=== PATIENT | male | born 1945 | race Caucasian/White ===

== ENCOUNTER 2023-06-22 19:05 | Inpatient (IN) ==
--- NOTE | 2023-06-22 19:21 | Emergency Department Note ---
Impression & Plan Sepsis, COPD (chronic obstructive pulmonary disease), Pneumonia, Leukocytosis, Elevated troponin ED Provider Note NAME: DENIZ HO [id number] LOPEZ AGE: 77 SEX: M ARRIVES VIA: Ambulance INFORMANT: Patient ED PROVIDER(S): Franklyn Rey MD CHIEF COMPLAINT: Shortness of breath, referred. PLAN: Disposition: Admit MEDICAL DECISION MAKING: The patient is a 77 gentleman, present inmate at [facility], with a past medical history of COPD, hypertension, hyperlipidemia who presents to the emergency department from his correction facility referred by [facility] for worsening cough, congestion and shortness of breath. EMS arrived and found the patient febrile to 100.4, tachycardic and tachypneic with O2 saturation 84% on room air and he was placed on 6 L nasal cannula and given APAP. On arrival the patient's O2 saturation was able to be weaned to room air and was 91%. The patient denies any discrete chest pain. He denies abdominal pain, nausea, vomiting, or diarrhea. On my evaluation the patient is uncomfortable but no distress, afebrile heart rate in the 100s and blood pressure 90s/60s and vital signs otherwise stable. Temperature is 37.6. O2 saturation 91% on room air with normal respiratory effort. He has wheezes bilateral lung rodriguez with rhonchi of right lower lung rodriguez. EKG without overt acute ischemia. Chest x-ray with right lower airspace opacities per my personal preliminary review/interpretation. Further characterized on CT imaging. WBC 37 K with neutrophil predominance and left shift. H/H and platelets within normal limits. VBG with pH of 7.46 with PaCO2 of 34 in the setting of the patient's tachypnea. Chemistry without metabolic acidosis. Lactic acid 1.6, within normal limits. Bili 1.6, nonspecific with LFTs otherwise unremarkable. High-sensitivity troponin initially 34, nonspecific with delta high-sensitivity troponin 27. BNP is not elevated. Procalcitonin is elevated at 6.4. Respiratory viral panel/[employer] was negative. CT of the chest was performed and was negative for PE. Note is made of emphysematous change throughout both lungs with a 9 cm area of infiltrate in the posterior aspect of the right lower lobe consistent with pneumonia. Patient was treated empirically with IV ceftriaxone and azithromycin on arrival but coverage broadened with Zosyn following leukocytosis and CT findings. MRSA swab performed and is pending. Patient was additionally treated with IV steroids and 2 L of normal saline thus achieving 30 cc/kg in the setting of sepsis. Blood pressure improved and stable. Patient does agree with plan for admission for further management. Case was discussed with EMILY Milton hospitalist, who will evaluate the patient for admission. Triage Nursing notes reviewed and agree them. Prior/external medical records reviewed Vital Signs: reviewed Differential diagnosis: Reactive airway disease, pneumonia, pneumothorax, COPD, CHF, infections, cardiac ischemia, pulmonary embolism, musculoskeletal, gastrointestinal, as well as other pathologies. ER treatment provided: See below. Diagnostics interpreted by me: ECG: Normal sinus rhythm, 100 bpm, PVC versus artifact. No overt ST elevation or depression, QTc 417 QRS 84. Cardiac Monitoring: An order for continuous cardiac monitoring was placed and demonstrated Normal sinus rhythm, 100 bpm, PVC versus artifact Laboratory studies: See below Imaging studies: See below Consultation(s): EMILY Milton hospitalist HPI: The patient is a 77 gentleman, present inmate at [facility], with a past medical history of COPD, hypertension, hyperlipidemia who presents to the emergency department from his correction facility referred by [facility] for worsening cough, congestion and shortness of breath. EMS arrived and found the patient febrile to 100.4, tachycardic and tachypneic with O2 saturation 84% on room air and he was placed on 6 L nasal cannula and given APAP. On arrival the patient's O2 saturation was able to be weaned to room air and was 91%. The patient denies any discrete chest pain. He denies abdominal pain, nausea, vomiting, or diarrhea. ROS: See above HPI for pertinent positives & negatives. A total of 10 systems reviewed and were otherwise negative. VITALS:See Below PHYSICAL EXAMINATION: GENERAL: Awake, alert, uncomfortable-appearing, in no distress HENT: Normocephalic, atraumatic. Oropharynx with dry mucous membranes and otherwise unremarkable. EYES: Normal conjunctiva. Sclera non-icteric. NECK: Supple. No nuchal rigidity. FROM. No JVD. RESPIRATORY: Wheezes bilateral lung rodriguez with rhonchi of right lower lung rodriguez. Normal respiratory effort. CARDIAC: Tachycardic. Rate, normal rhythm. Extremities warm and well perfused. Pulses equal. ABDOMEN: Soft, non-distended. No tenderness to palpation. No rebound or guarding. No masses. RECTAL: Deferred. MUSCULOSKELETAL: Chest examination reveals no tenderness. The back is symmetrical on inspection without obvious abnormality. There is no CVA tenderness to palpation. No joint edema. LOWER EXTREMITIES: Calves are equal size bilaterally and non-tender. No edema. No discoloration. NEURO: Normal sensorium. No sensory or motor deficits noted. SKIN: No rash or jaundice noted. Skin is warm and mottled with capillary refill approximately 3 seconds. ED COURSE: Critical Care: I have personally spent greater than 45 minutes of critical care time in the direct management of this patient. This includes bedside care, interpretation of diagnostic studies, and testing, discussion with consultants, patient, and family members, and other required patient management activities. This 45 minutes is in excess of all separately billable procedures. Franklyn Rey MD Past Med/Surg History Medical History Aortic aneurysm UNSPECIFIED PER MEDICAL RECORD GERD (gastroesophageal reflux disease) SOB (shortness of breath) on exertion Chronic obstructive pulmonary disease Hyperlipidemia Hypertension Surgical History History of cataract surgery RT H/O aortic aneurysm repair Social History Smoking Status: Former smoker Tobacco Type: Cigarettes Cigarettes Per Day: SMOKED 1 PPD X 60 YRS; Hx Alcohol Use: No Hx Substance Use: No Preferred Language: Mohawk Communication Ability: Effective Senior Information Developer Required: No Beliefs That Will Affect Care: None Current Living Situation: Other Current Living Situation Comment: correction Feels Safe at Home: Yes Assistive Devices: None Allergies Allergies Allergy/AdvReac Type Severity Reaction Status Date / Time No Known Allergies Allergy Verified 06/22/23 21:25 Home Meds Home Medications Medication Instructions Recorded Confirmed lisinopril 40 mg tablet 40 mg PO QAM 04/08/19 06/22/23 lovastatin 20 mg tablet 20 mg PO PM 04/08/19 06/22/23 montelukast 10 mg tablet 10 mg PO QAM 04/08/19 06/22/23 pantoprazole 40 mg tablet,delayed 40 mg PO QAM 04/08/19 06/22/23 release theophylline 300 mg 300 mg PO TID 04/08/19 06/22/23 tablet,extended release,12 hr albuterol sulfate 90 mcg/actuation 2 puff inhalation QID PRN 06/22/23 06/22/23 aerosol inhaler Shortness Of Breath fluticasone fur. 100 mcg-umeclid 1 inh inhalation DAILY 06/22/23 06/22/23 62.5 mcg-vilant 25 mcg inhalat.powder (Trelegy Ellipta) hydrochlorothiazide 12.5 mg tablet 12.5 mg PO DAILY 06/22/23 06/22/23 vit A 300 mcg-C 200 mg-E 27 1 tab PO DAILY 06/22/23 06/22/23 mg-lutein 2 mg and minerals tablet (Ocuvite with Lutein) Results & Data (ED) Vital Signs Vital Signs - 24 hr 06/22/23 18:44 06/22/23 18:44 06/22/23 19:15 Temperature 37.6 C H Temperature Source Oral Pulse Rate 102 H 100 H Pulse Rate from SpO2 Sensor Respiratory Rate 18 Respiratory Effort / Characteristics Non-Labored Respiratory Depth Normal Blood Pressure 97/68 L Blood Pressure Mean 77 Pulse Oximetry 91 Oxygen Delivery Method Room Air Room Air Sepsis Recent Fever Within 48 Hours No Sepsis New/Unexplained Change in Mental Status No Sepsis Action Taken by Nursing Physician Notified 06/22/23 19:15 06/22/23 19:16 06/22/23 19:30 Temperature Temperature Source Pulse Rate 101 H 100 H Pulse Rate from SpO2 Sensor 101 H 100 H Respiratory Rate 30 H 32 H Respiratory Effort / Characteristics Respiratory Depth Blood Pressure Blood Pressure Mean Pulse Oximetry 92 91 Oxygen Delivery Method Room Air Sepsis Recent Fever Within 48 Hours Sepsis New/Unexplained Change in Mental Status Sepsis Action Taken by Nursing 06/22/23 20:00 06/22/23 20:31 06/22/23 21:00 Temperature Temperature Source Pulse Rate 94 H 87 85 Pulse Rate from SpO2 Sensor 94 H 86 82 Respiratory Rate 28 H 28 H 25 H Respiratory Effort / Characteristics Respiratory Depth Blood Pressure 95/62 L Blood Pressure Mean 73 Pulse Oximetry 91 92 100 Oxygen Delivery Method Sepsis Recent Fever Within 48 Hours Sepsis New/Unexplained Change in Mental Status Sepsis Action Taken by Nursing 06/22/23 21:30 06/22/23 21:48 06/22/23 22:00 Temperature Temperature Source Pulse Rate 88 85 82 Pulse Rate from SpO2 Sensor 89 86 83 Respiratory Rate 27 H 25 H 27 H Respiratory Effort / Characteristics Respiratory Depth Blood Pressure 114/75 Blood Pressure Mean 88 Pulse Oximetry 96 95 94 Oxygen Delivery Method Sepsis Recent Fever Within 48 Hours Sepsis New/Unexplained Change in Mental Status Sepsis Action Taken by Nursing Laboratory Data Attestation: I reviewed the patient's lab results. 06/22/23 19:26 06/22/23 19:26 Lab Results 06/22/23 06/22/23 06/22/23 Range/Units 19:20 19:26 20:16 WBC 37.17 H* (4.8-10.8) K/ul RBC 4.48 L (4.70-6.10) M/uL Hgb 14.9 (14.0-18.0) g/dl Hct 43.4 (42.0-52.0) % MCV 96.9 (80.0-100.0) fL MCH 33.3 (25.0-34.0) pg MCHC 34.3 (32.0-36.0) g/dL RDW Std Deviation 44.9 (36.4-46.3) fL RDW Coeff of Yoandy 12.5 (11.5-14.5) % Plt Count 199 (130-400) K/uL MPV 10.7 (9.4-12.4) fL Immature Gran % (Auto) 1.6 % Neut % (Auto) 91.3 % Lymph % (Auto) 3.2 % [place] % (Auto) 3.7 % Eos % (Auto) 0.0 % Baso % (Auto) 0.2 % Neut # (Auto) 33.93 H (1.40-6.50) K/uL Lymph # (Auto) 1.19 L (1.20-3.40) K/uL [place] # (Auto) 1.38 H (0.11-0.59) K/uL Eos # (Auto) 0.00 (0.00-0.50) K/uL Baso # (Auto) 0.09 (0.00-0.20) K/uL Immature Gran # (Auto) 0.58 H (0.01-0.20) K/uL PT 14.2 H (9.0-12.0) Seconds INR 1.3 H (0.9-1.1) VBG pH 7.46 H (7.36-7.41) VBG pCO2 34 L (38-50) mmHg VBG pO2 53 mmHg VBG HCO3 24 mmol/L VBG O2 Saturation 87.4 % VBG Base Excess 0.8 mEq/L Sodium 133 L (136-145) mmol/L Potassium 4.2 (3.5-5.1) mmol/L Chloride 101 (98-107) mmol/L Carbon Dioxide 22 (21-32) mmol/L Anion Gap 10 (3-11) BUN 21 (6-23) mg/dl Creatinine 1.20 (0.6-1.4) mg/dl Est Cr Clr Drug Dosing 43.8 ml/min Est GFR ( Amer) 66.3 ml/min Est GFR (Non-Af Amer) 57.2 ml/min BUN/Creatinine Ratio 17.5 (10-20) Glucose 102 H (70-99(Fasting)) mg/dl Lactate 1.6 (0.4-2.0) mmol/L Calcium 9.0 (8.6-10.3) mg/dl Phosphorus 2.0 L (2.5-4.9) mg/dl Magnesium 1.8 (1.7-2.4) mg/dl Total Bilirubin 1.6 H (0.2-1.0) mg/dl AST 12 L (13-39) U/L ALT 5 L (7-52) U/L Alkaline Phosphatase 71 (34-104) U/L Troponin I High Sens 34.3 H (0-20) pg/ml B-Natriuretic Peptide 87 (0-100) pg/ml Total Protein 7.6 (6.0-8.3) gm/dl Albumin 4.0 (3.4-5.0) gm/dl Globulin 3.6 (2.5-4.0) gm/dl Albumin/Globulin Ratio 1.1 (0.9-2) Lipase < 3 L (11-82) U/L Procalcitonin 6.46 H (0-0.5) ng/ml 06/22/23 Range/Units 21:36 WBC (4.8-10.8) K/ul RBC (4.70-6.10) M/uL Hgb (14.0-18.0) g/dl Hct (42.0-52.0) % MCV (80.0-100.0) fL MCH (25.0-34.0) pg MCHC (32.0-36.0) g/dL RDW Std Deviation (36.4-46.3) fL RDW Coeff of Yoandy (11.5-14.5) % Plt Count (130-400) K/uL MPV (9.4-12.4) fL Immature Gran % (Auto) % Neut % (Auto) % Lymph % (Auto) % [place] % (Auto) % Eos % (Auto) % Baso % (Auto) % Neut # (Auto) (1.40-6.50) K/uL Lymph # (Auto) (1.20-3.40) K/uL [place] # (Auto) (0.11-0.59) K/uL Eos # (Auto) (0.00-0.50) K/uL Baso # (Auto) (0.00-0.20) K/uL Immature Gran # (Auto) (0.01-0.20) K/uL PT (9.0-12.0) Seconds INR (0.9-1.1) VBG pH (7.36-7.41) VBG pCO2 (38-50) mmHg VBG pO2 mmHg VBG HCO3 mmol/L VBG O2 Saturation % VBG Base Excess mEq/L Sodium (136-145) mmol/L Potassium (3.5-5.1) mmol/L Chloride (98-107) mmol/L Carbon Dioxide (21-32) mmol/L Anion Gap (3-11) BUN (6-23) mg/dl Creatinine (0.6-1.4) mg/dl Est Cr Clr Drug Dosing ml/min Est GFR ( Amer) ml/min Est GFR (Non-Af Amer) ml/min BUN/Creatinine Ratio (10-20) Glucose (70-99(Fasting)) mg/dl Lactate (0.4-2.0) mmol/L Calcium (8.6-10.3) mg/dl Phosphorus (2.5-4.9) mg/dl Magnesium (1.7-2.4) mg/dl Total Bilirubin (0.2-1.0) mg/dl AST (13-39) U/L ALT (7-52) U/L Alkaline Phosphatase (34-104) U/L Troponin I High Sens 27.9 H (0-20) pg/ml B-Natriuretic Peptide (0-100) pg/ml Total Protein (6.0-8.3) gm/dl Albumin (3.4-5.0) gm/dl Globulin (2.5-4.0) gm/dl Albumin/Globulin Ratio (0.9-2) Lipase (11-82) U/L Procalcitonin (0-0.5) ng/ml Administered Medications Albuterol (Albut/Ipratrop 3mg/0.5mg Neb 3 Ml Vial) 3 ml NEB Q4R SPRING; Protocol Stop: 07/22/23 22:59 Last Admin: 06/23/23 03:04 Dose: 3 ml Documented By: Admin: 06/22/23 23:17 Dose: 3 ml Documented By: CHANI Enoxaparin Sodium (Enoxaparin Inj 40 Mg/0.4 Ml Syr) 40 mg SQ Q24H SPRING Stop: 07/22/23 22:59 Last Admin: 06/23/23 00:25 Dose: 40 mg Documented By: LAST Discontinued Medications Albuterol (Albut/Ipratrop 3mg/0.5mg Neb 3 Ml Vial) 3 ml NEB NOW STA; Protocol Stop: 06/22/23 20:08 Last Admin: 06/22/23 20:34 Dose: 3 ml Documented By: KAZ Guaifenesin (Guaifenesin 600 Mg Tabcr) 1,200 mg PO NOW STA Stop: 06/22/23 20:08 Last Admin: 06/22/23 20:34 Dose: 1,200 mg Documented By: KAZ Sodium Chloride (Nss) 1,000 mls @ 999 mls/hr IV .Q1H1M SPRING Stop: 06/22/23 22:15 Last Infusion: 06/22/23 23:47 Dose: Infused Documented By: Admin: 06/22/23 21:27 Dose: 999 mls/hr Documented By: Infusion: 06/22/23 21:27 Dose: Infused Documented By: Admin: 06/22/23 20:34 Dose: 999 mls/hr Documented By: KAZ Ceftriaxone Sodium (Rocephin) 2,000 mg in 50 mls @ 100 mls/hr IV NOW STA Stop: 06/22/23 20:36 Last Infusion: 06/22/23 23:48 Dose: Infused Documented By: Admin: 06/22/23 20:34 Dose: 100 mls/hr Documented By: KAZ Azithromycin 500 mg/ Dextrose 255 mls @ 127.5 mls/hr IV NOW STA Stop: 06/22/23 22:06 Last Infusion: 06/22/23 23:48 Dose: Infused Documented By: Admin: 06/22/23 21:26 Dose: 127.5 mls/hr Documented By: KAZ Piperacillin Sod/Tazobactam (Sod 4.5 gm/ Dextrose) 100 mls @ 200 mls/hr IV NOW ONE; Protocol Stop: 06/22/23 21:36 Last Admin: 06/22/23 23:47 Dose: Not Given Documented By: LAST Sodium Phosphate 12 mmol/ (Sodium Chloride) 254 mls @ 88 mls/hr IV ONE ONE Stop: 06/23/23 02:08 Last Infusion: 06/23/23 03:26 Dose: Infused Documented By: Admin: 06/23/23 00:25 Dose: 88 mls/hr Documented By: LAST Piperacillin Sod/Tazobactam (Sod 4.5 gm/ Dextrose) 100 mls @ 200 mls/hr IV NOW ONE; Protocol Stop: 06/22/23 23:44 Last Infusion: 06/23/23 00:30 Dose: Infused Documented By: Admin: 06/22/23 23:30 Dose: 200 mls/hr Documented By: LAST Ioversol (Optiray 320 500ml) 114 ml IV ONCE ONE Stop: 06/22/23 20:24 Last Admin: 06/22/23 20:23 Dose: 114 ml Documented By: GORAN Methylprednisolone (Methylprednisolone 125 Mg/2 Ml Vial) 125 mg IV NOW STA Stop: 06/22/23 20:08 Last Admin: 06/22/23 20:34 Dose: 125 mg Documented By: KAZ Imaging Data Radiologist's Impression: Chest CTA 06/22/23 20:07 Exam(s): CTA CHEST IV Amt: 114 ml optiray 320 EXAM: CT Angiography Chest With Intravenous Contrast CLINICAL HISTORY: Reason for exam: hypoxia, sob, copd, r/o PE. TECHNIQUE: Axial computed tomographic angiography images of the chest with intravenous contrast. CTDI is 16.62 mGy and DLP is 363.81 mGy-cm. Automated exposure control was utilized for the study. A dose lowering technique was utilized adhering to the principles of ALARA. MIP reconstructed images were created and reviewed. COMPARISON: No relevant prior studies available. FINDINGS: Pulmonary arteries: The pulmonary arterial tree is well opacified with contrast. No pulmonary embolism is identified. Aorta: The thoracic aorta is mildly calcified but nondilated. There is no aneurysm or dissection. Lungs: There are mild to moderate emphysematous changes throughout both lungs. There is an approximately 9 cm areas of infiltrate in the posterior aspect of the right lower lobe consistent with pneumonia. Pleural based 1 cm nodular density in the posterior right upper lobe. Possible infiltrate or atelectasis. Recommend follow-up in 2-3 months to document resolution. No mass. Pleural space: Unremarkable. No significant effusion. No pneumothorax. Heart: Unremarkable. No cardiomegaly. No significant pericardial effusion. No evidence of RV dysfunction. Bones/joints: Mild degenerative changes throughout the spine. No acute fracture or destructive bone lesion is seen. No dislocation. Soft tissues: Unremarkable. Lymph nodes: Unremarkable. No enlarged lymph nodes. IMPRESSION: 1. There are mild to moderate emphysematous changes throughout both lungs. There is an approximately 9 cm area of infiltrate in the posterior aspect of the right lower lobe consistent with pneumonia. 2. Pleural based 1 cm nodular density in the posterior right upper lobe. Possible infiltrate or atelectasis. Recommend follow-up in 2-3 months to document resolution. 3. The thoracic aorta is mildly calcified but nondilated. There is no aneurysm or dissection. 4. The pulmonary arterial tree is well opacified with contrast. No pulmonary embolism is identified. Electronically signed by: Suleman Sanchez MD 06/22/23 20:57 PM Discharge Plan Visit Data Chief Complaint: Shortness of Breath/Dyspnea Stated Complaint: SHORTNESS OF BREATH ED Provider: Franklyn Rey Discharge Problem: Sepsis, COPD (chronic obstructive pulmonary disease), Pneumonia, Leukocytosis, Elevated troponin Patient Disposition: Admitted As Inpatient Discharge Instructions Interventions: ED Discharge Assessment Last Done: 06/22/23 22:45 Discharge Problem: Sepsis Qualifiers: Sepsis type: sepsis due to unspecified organism Severe sepsis acute organ dysfunction type: unspecified Severe sepsis shock status: without septic shock COPD (chronic obstructive pulmonary disease) Qualifiers: COPD type: COPD with acute lower respiratory infection Qualified Code(s): J44.0 - Chronic obstructive pulmonary disease with (acute) lower respiratory infection Pneumonia Qualifiers: Pneumonia type: due to unspecified organism Laterality: right Lung location: l ower lobe of lung Qualified Code(s): J18.9 - Pneumonia, unspecified organism Leukocytosis Qualifiers: Leukocytosis type: bandemia Qualified Code(s): D72.825 - Bandemia
[2023-06-22] MEDS ORDERED: methylPREDNISolone 125 MG/2 ML VIAL IV STA (20:07)
[2023-06-22] MEDS ORDERED: guaiFENesin 600 MG TABCR PO STA (20:07)
[2023-06-22] MEDS ORDERED: ALBUT/IPRATROP 3MG/0.5MG NEB 3 ML VIAL NEB STA (20:07)
[2023-06-22] MEDS ORDERED: AZITHROMYCIN 500 MG in DEXTROSE 5% 250 ML IV STA (20:07)
[2023-06-22] MEDS ORDERED: cefTRIAXone SODIUM 2,000 MG/50 ML BAG IV STA (20:07)
[2023-06-22 20:08] LABS: Anion Gap 10 (3-11); BUN Creatinine Ratio 17.5 (10-20); Blood Urea Nitrogen 21 mg/dl (6-23); Carbon Dioxide 22 mmol/L (21-32); Chloride 101 mmol/L (98-107); Creatinine Clr Calc Pharmacy 43.8 ml/min; Est GFR (African American) 66.3 ml/min; Est GFR (Non-African American) 57.2 ml/min; Glucose 102 mg/dl (70-99(Fasting)); Potassium 4.2 mmol/L (3.5-5.1); Sodium 133 mmol/L (136-145)
[2023-06-22 20:14] LABS: Troponin I High Sensitivity 34.3 pg/ml (0-20)
[2023-06-22 20:19] LABS: Basophils # (auto) 0.09 K/uL (0.00-0.20); Basophils % (auto) 0.2 %; Hematocrit (blood only) 43.4 % (42.0-52.0); Hemoglobin 14.9 g/dl (14.0-18.0); INR 1.3 (0.9-1.1); Immature Granulocytes # (auto) 0.58 K/uL (0.01-0.20); Immature Granulocytes % (auto) 1.6 %; Lymphocytes # (auto) 1.19 K/uL (1.20-3.40); Lymphocytes % (auto) 3.2 %; Mean Corpuscular Hemoglobin 33.3 pg (25.0-34.0); Mean Corpuscular Hgb Conc 34.3 g/dL (32.0-36.0); Mean Corpuscular Volume 96.9 fL (80.0-100.0); Mean Platelet Volume 10.7 fL (9.4-12.4); Monocytes # (auto) 1.38 K/uL (0.11-0.59); Monocytes % (auto) 3.7 %; Neutrophils # (auto) 33.93 K/uL (1.40-6.50); Neutrophils % (auto) 91.3 %; Platelet Count 199 K/uL (130-400); Prothrombin Time 14.2 Seconds (9.0-12.0); RDW Coefficient of Variation 12.5 % (11.5-14.5); RDW Standard Deviation 44.9 fL (36.4-46.3); Red Blood Count 4.48 M/uL (4.70-6.10); White Blood Count 37.17 K/ul (4.8-10.8)
[2023-06-22 20:23] LABS: Alanine Aminotransferase 5 U/L (7-52); Albumin Globulin Ratio 1.1 (0.9-2); Alkaline Phosphatase 71 U/L (34-104); Aspartate Aminotransferase 12 U/L (13-39); Bilirubin,Total 1.6 mg/dl (0.2-1.0); Globulin 3.6 gm/dl (2.5-4.0); Lipase < 3 U/L (11-82); Magnesium 1.8 mg/dl (1.7-2.4); Total Protein 7.6 gm/dl (6.0-8.3)
[2023-06-22] MEDS ORDERED: OPTIRAY 320 500ml IV ONE (20:23)
[2023-06-22 20:32] LABS: Base Excess VBG 0.8 mEq/L; HCO3 VBG 24 mmol/L; Oxygen Saturation VBG 87.4 %; PCO2 VBG 34 mmHg (38-50); PO2 VBG 53 mmHg; pH VBG 7.46 (7.36-7.41)
[2023-06-22] MEDS: SODIUM CHLORIDE 0.9% 1,000 ML IV SCH ×2 (20:34→21:27)
--- NOTE | 2023-06-22 20:58 | CT Scan Report ---
Exam(s): CTA CHEST IV Amt: 114 ml optiray 320 EXAM: CT Angiography Chest With Intravenous Contrast CLINICAL HISTORY: Reason for exam: hypoxia, sob, copd, r/o PE. TECHNIQUE: Axial computed tomographic angiography images of the chest with intravenous contrast. CTDI is 16.62 mGy and DLP is 363.81 mGy-cm. Automated exposure control was utilized for the study. A dose lowering technique was utilized adhering to the principles of ALARA. MIP reconstructed images were created and reviewed. COMPARISON: No relevant prior studies available. FINDINGS: Pulmonary arteries: The pulmonary arterial tree is well opacified with contrast. No pulmonary embolism is identified. Aorta: The thoracic aorta is mildly calcified but nondilated. There is no aneurysm or dissection. Lungs: There are mild to moderate emphysematous changes throughout both lungs. There is an approximately 9 cm areas of infiltrate in the posterior aspect of the right lower lobe consistent with pneumonia. Pleural based 1 cm nodular density in the posterior right upper lobe. Possible infiltrate or atelectasis. Recommend follow-up in 2-3 months to document resolution. No mass. Pleural space: Unremarkable. No significant effusion. No pneumothorax. Heart: Unremarkable. No cardiomegaly. No significant pericardial effusion. No evidence of RV dysfunction. Bones/joints: Mild degenerative changes throughout the spine. No acute fracture or destructive bone lesion is seen. No dislocation. Soft tissues: Unremarkable. Lymph nodes: Unremarkable. No enlarged lymph nodes. IMPRESSION: 1. There are mild to moderate emphysematous changes throughout both lungs. There is an approximately 9 cm area of infiltrate in the posterior aspect of the right lower lobe consistent with pneumonia. 2. Pleural based 1 cm nodular density in the posterior right upper lobe. Possible infiltrate or atelectasis. Recommend follow-up in 2-3 months to document resolution. 3. The thoracic aorta is mildly calcified but nondilated. There is no aneurysm or dissection. 4. The pulmonary arterial tree is well opacified with contrast. No pulmonary embolism is identified. Electronically signed by: Suleman Sanchez MD 06/22/23 20:57 PM
[2023-06-22] MEDS ORDERED: PIPERACILLIN/TAZOBACTAM 4.5 GM in DEXTROSE 5% MINI-B 100 ML IV ONE ×2 (21:07→23:15)
--- NOTE | 2023-06-22 22:02 | History & Physical Report ---
Date of Service June 22, 2023 Assessment & Plan (1) Pneumonia: Plan: 77yo male with history of COPD presenting with 2-3 days of worsening shortness of breath and productive cough. Patient with elevated temperature and HR, blood pressure borderline low. Labs are significant for markedly elevated WBC count at 37.17 with neutrophil predominance, elevated neutrophil:lymphocyte ratio and bands, elevated procalcitonin at 6.46. CT as above with RLL infiltrate sugge stive of PNA. Patient has been administered 2L NSS as well as Ceftriaxone and Azithromycin. -Admit to medical with telemetry -Follow cultures -Antibiotic coverage with Zosyn (RLL density, h/o COPD). -Check MRSA nares -Tylenol PRN (2) COPD (chronic obstructive pulmonary disease): Plan: Patient with COPD. Diminished breath sounds with scattered wheezing. -Check theophylline level -Continue Theophylline -Continue Trelegy or formulary equivalent -DuoNeb q 4 hours while awake -Albuterol q 2 hours PRN -Mucinex 1200mg po BID -Flutter valve and incentive spirometry -Solumedrol 40mg IV BID -Phos repletion with 12mmol NaPO4, repeat level in AM -Mildly elevated troponin is now downtrending -EKG changes without report of chest pain. Repeat EKG CT with pleural based 1cm nodular density in the posterior right upper lobe representing possible infiltrate or atelectasis. Patient should have a followup CT scan in 2-3 months to demonstrate resolution (3) Hyperlipidemia: Plan: Chronic. Stable -Continue Lovastatin (4) Hypertension: Plan: Blood pressure borderline low -Hold HCTZ and Lisinopril for now -Continue to monitor - may resume in AM if BP improves (5) GERD (gastroesophageal reflux disease): Plan: Chronic. Stable -Continue Protonix History of Present Illness Chief Complaint: shortness of breath Primary Care Provider: NADINE Briggs Fan Prather is a 77yo incarcerated male with history of COPD presenting with shortness of breath. Patient reports having some mild URI symptoms 3-4 weeks ago which resolved. Over the last 2-3 days he has been having increasing shortness of breath and cough productive for thick, yellow sputum. He denies fever, chills, sweats, chest pain or tightness. No hemoptysis. No abdominal pain, nausea, vomiting or diarrhea. No additional complaints at this time. In the ER patient with elevated temperature of 37.6, tachycardic at 102bpm, blood pressure mildly low (last 97/68) but MAPs maintained over 65. Adequate oxygenation on room air with saturations ranging 88-92%. Patient does not use supplemental O2 at home. ER Course: NSS x 2L Solumedrol 125mg IV Albuterol 3mL neb Ceftriaxone 2gm IV Azithromycin 500mg IV Allergies Allergy/AdvReac Type Severity Reaction Status Date / Time No Known Allergies Allergy Verified 06/22/23 21:25 Home Medications Medication Instructions Recorded Confirmed Type lisinopril 40 mg tablet 40 mg PO QAM 04/08/19 06/22/23 History lovastatin 20 mg tablet 20 mg PO PM 04/08/19 06/22/23 History montelukast 10 mg tablet 10 mg PO QAM 04/08/19 06/22/23 History pantoprazole 40 mg tablet,delayed 40 mg PO QAM 04/08/19 06/22/23 History release theophylline 300 mg 300 mg PO TID 04/08/19 06/22/23 History tablet,extended release,12 hr albuterol sulfate 90 mcg/actuation 2 puff inhalation QID PRN 06/22/23 06/22/23 History aerosol inhaler Shortness Of Breath fluticasone fur. 100 mcg-umeclid 1 inh inhalation DAILY 06/22/23 06/22/23 History 62.5 mcg-vilant 25 mcg inhalat.powder (Trelegy Ellipta) hydrochlorothiazide 12.5 mg tablet 12.5 mg PO DAILY 06/22/23 06/22/23 History vit A 300 mcg-C 200 mg-E 27 1 tab PO DAILY 06/22/23 06/22/23 History mg-lutein 2 mg and minerals tablet (Ocuvite with Lutein) Past Med/Surg History Medical History (Updated 06/22/23 @ 22:22 by Claudia Sanchez DO) Aortic aneurysm UNSPECIFIED PER MEDICAL RECORD GERD (gastroesophageal reflux disease) SOB (shortness of breath) on exertion Chronic obstructive pulmonary disease Hyperlipidemia Hypertension Surgical History History of cataract surgery RT H/O aortic aneurysm repair Social History Smoking Status: Former smoker Cigarettes Per Day: SMOKED 1 PPD X 60 YRS; Hx Alcohol Use: No Preferred Language: Romanian Plaster Lather Required: No Current Living Situation: Other Current Living Situation Comment: [facility] Feels Safe at Home: Yes Assistive Devices: Denture - Upper and Denture - Lower Review of Systems Review of Systems: All systems reviewed & are unremarkable except as noted in HPI & below Physical Exam Physical Exam: General: frail appearing male patient resting comfortably, NAD, non-toxic in appearance, AA&O x 4 Skin: warm, dry, intact, no rashes or lesions HEENT: NC/AT, PERRL, EOMI, anicteric sclera, conjunctiva without injection, external ear normal to inspection and nontender, nares patent, moist mucus membranes, dentition intact, no oropharyngeal lesions, neck supple, trachea midline, no LAD, no thyromegaly, no JVD Heart: +S1/S2, distant heart tones, regular, no m/r/g Lungs: normal chest wall mechanics, diminished breath sounds with scattered end-expiratory wheezing, +crackles in right mid lung field and base Abd: +BS, soft, NT/ND, no masses/organomegaly/ascites Ext: warm, 2+ pulses in UE/LE bilaterally, no clubbing/cyanosis or edema Neuro: nonfocal, patient AA&O x 4, speech intact, no facial droop, moving all extremities on command with equal strength 5/5 Results & Data Results & Data Vital Signs (Past 12 Hours) Vital Signs Temp Pulse Resp BP Pulse Ox O2 Del Method 06/22/23 19:15 Room Air 06/22/23 19:15 100 H 06/22/23 18:44 Room Air 06/22/23 18:44 37.6 C H 102 H 18 97/68 L 91 Room Air Laboratory Results Laboratory Results WBC 37.17 K/ul (4.8-10.8) H* 06/22/23 19:26 RBC 4.48 M/uL (4.70-6.10) L 06/22/23 19:26 Hgb 14.9 g/dl (14.0-18.0) 06/22/23 19:26 Hct 43.4 % (42.0-52.0) 06/22/23 19:26 MCV 96.9 fL (80.0-100.0) 06/22/23 19:26 MCH 33.3 pg (25.0-34.0) 06/22/23 19: MCHC 34.3 g/dL (32.0-36.0) 06/22/23 19: RDW Std Deviation 44.9 fL (36.4-46.3) 06/22/23: RDW Coeff of Yoandy 12.5 % (11.5-14.5) 06/22/23: Plt Count 199 K/uL (130-400) 06/22/23 19: MPV 10.7 fL (9.4-12.4) 06/22/23: Immature Gran % (Auto) 1.6 % 06/22/23: Neut % (Auto) 91.3 % 06/22/23: Lymph % (Auto) 3.2 % 06/22/23: Dent % (Auto) 3.7 % 06/22/23: Eos % (Auto) 0.0 % 06/22/23: Baso % (Auto) 0.2 % 06/22/23: Neut # (Auto) 33.93 K/uL (1.40-6.50) H 06/22/23 19: Lymph # (Auto) 1.19 K/uL (1.20-3.40) L 06/22/23 19: Dent # (Auto) 1.38 K/uL (0.11-0.59) H 06/22/23 19: Eos # (Auto) 0.00 K/uL (0.00-0.50) 06/22/23 19: Baso # (Auto) 0.09 K/uL (0.00-0.20) 06/22/23 19: Immature Gran # (Auto) 0.58 K/uL (0.01-0.20) H 06/22/23 19: PT 14.2 Seconds (9.0-12.0) H 06/22/23 19: INR 1.3 (0.9-1.1) H 06/22/23 19: VBG pH 7.46 (7.36-7.41) H 06/22/23 20:16 VBG pCO2 34 mmHg (38-50) L 06/22/23 20:16 VBG pO2 53 mmHg 06/22/23 20:16 VBG HCO3 24 mmol/L 06/22/23 20:16 VBG O2 Saturation 87.4 % 06/22/23 20:16 VBG Base Excess 0.8 mEq/L 06/22/23 20:16 Sodium 133 mmol/L (136-145) L 06/22/23 19:26 Potassium 4.2 mmol/L (3.5-5.1) 06/22/23 19:26 Chloride 101 mmol/L (98-107) 06/22/23 19:26 Carbon Dioxide 22 mmol/L (21-32) 06/22/23 19:26 Anion Gap 10 (3-11) 06/22/23 19:26 BUN 21 mg/dl (6-23) 06/22/23 19:26 Creatinine 1.20 mg/dl (0.6-1.4) 06/22/23 19:26 Est Cr Clr Drug Dosing 43.8 ml/min 06/22/23 19:26 Est GFR ( Amer) 66.3 ml/min 06/22/23 19:26 Est GFR (Non-Af Amer) 57.2 ml/min 06/22/23 19:26 BUN/Creatinine Ratio 17.5 (10-20) 06/22/23 19:26 Glucose 102 mg/dl (70-99(Fasting)) H 06/22/23 19:26 Lactate 1.6 mmol/L (0.4-2.0) 06/22/23 19:20 Calcium 9.0 mg/dl (8.6-10.3) 06/22/23 19:26 Phosphorus 2.0 mg/dl (2.5-4.9) L 06/22/23 19:26 Magnesium 1.8 mg/dl (1.7-2.4) 06/22/23 19:26 Total Bilirubin 1.6 mg/dl (0.2-1.0) H 06/22/23 19:26 AST 12 U/L (13-39) L 06/22/23 19:26 ALT 5 U/L (7-52) L 06/22/23 19:26 Alkaline Phosphatase 71 U/L (34-104) 06/22/23 19:26 Troponin I High Sens 34.3 pg/ml (0-20) H 06/22/23 19:26 B-Natriuretic Peptide 87 pg/ml (0-100) 06/22/23 19:26 Total Protein 7.6 gm/dl (6.0-8.3) 06/22/23 19:26 Albumin 4.0 gm/dl (3.4-5.0) 06/22/23 19:26 Globulin 3.6 gm/dl (2.5-4.0) 06/22/23 19:26 Albumin/Globulin Ratio 1.1 (0.9-2) 06/22/23 19:26 Lipase < 3 U/L (11-82) L 06/22/23 19:26 Procalcitonin 6.46 ng/ml (0-0.5) H 06/22/23 19:26 Impressions Chest CTA 06/22/23 20:07 Exam(s): CTA CHEST IV Amt: 114 ml optiray 320 EXAM: CT Angiography Chest With Intravenous Contrast CLINICAL HISTORY: Reason for exam: hypoxia, sob, copd, r/o PE. TECHNIQUE: Axial computed tomographic angiography images of the chest with intravenous contrast. CTDI is 16.62 mGy and DLP is 363.81 mGy-cm. Automated exposure control was utilized for the study. A dose lowering technique was utilized adhering to the principles of ALARA. MIP reconstructed images were created and reviewed. COMPARISON: No relevant prior studies available. FINDINGS: Pulmonary arteries: The pulmonary arterial tree is well opacified with contrast. No pulmonary embolism is identified. Aorta: The thoracic aorta is mildly calcified but nondilated. There is no aneurysm or dissection. Lungs: There are mild to moderate emphysematous changes throughout both lungs. There is an approximately 9 cm areas of infiltrate in the posterior aspect of the right lower lobe consistent with pneumonia. Pleural based 1 cm nodular density in the posterior right upper lobe. Possible infiltrate or atelectasis. Recommend follow-up in 2-3 months to document resolution. No mass. Pleural space: Unremarkable. No significant effusion. No pneumothorax. Heart: Unremarkable. No cardiomegaly. No significant pericardial effusion. No evidence of RV dysfunction. Bones/joints: Mild degenerative changes throughout the spine. No acute fracture or destructive bone lesion is seen. No dislocation. Soft tissues: Unremarkable. Lymph nodes: Unremarkable. No enlarged lymph nodes. IMPRESSION: 1. There are mild to moderate emphysematous changes throughout both lungs. There is an approximately 9 cm area of infiltrate in the posterior aspect of the right lower lobe consistent with pneumonia. 2. Pleural based 1 cm nodular density in the posterior right upper lobe. Possible infiltrate or atelectasis. Recommend follow-up in 2-3 months to document resolution. 3. The thoracic aorta is mildly calcified but nondilated. There is no aneurysm or dissection. 4. The pulmonary arterial tree is well opacified with contrast. No pulmonary embolism is identified. Electronically signed by: Suleman Sanchez MD 06/22/23 20:57 PM ECG Additional Comments: EKG by my interpretation shows NSR at 100bpm, normal axis, MD-166, QRs=84, MSx=945, ST changes, mild elevations present in inferior leads. No reciprocal changes PG Care Time/CCT Total # of Minutes Spent Total Time Spent with Patient: Total time spent is greater than 50% in coordination of care (as documented) at patient's floor/unit and/or counseling patient: Coding Level of Care Code 04454 INT INP/OBS CARE 2/55MIN Diagnoses Pneumonia J18.9 COPD (chronic obstructive pulmonary disease) J44.9 Hyperlipidemia E78.5 Hypertension I10 GERD (gastroesophageal reflux disease) K21.9
[2023-06-22 22:43] LABS: Adenovirus PCR Not Detected (NotDetected); Bordetella parapertussis PCR Not Detected (NotDetected); Bordetella pertussis PCR Not Detected (NotDetected); Chlamydia pneumoniae PCR Not Detected (NotDetected); Coronavirus 229E PCR Not Detected (NotDetected); Coronavirus CoV-2 (COVID19)PCR Not Detected (NotDetected); Coronavirus HKU1 PCR Not Detected (NotDetected); Coronavirus NL63 PCR Not Detected (NotDetected); Coronavirus OC43PCR Not Detected (NotDetected); Human Metapneumovirus PCR Not Detected (NotDetected); Influenza A PCR Not Detected (NotDetected); Influenza B PCR Not Detected (NotDetected); Mycoplasma pneumoniae PCR Not Detected (NotDetected); Parainfluenza Virus 1 PCR Not Detected (NotDetected); Parainfluenza Virus 2 PCR Not Detected (NotDetected); Parainfluenza Virus 3 PCR Not Detected (NotDetected); Parainfluenza Virus 4 PCR Not Detected (NotDetected); Respiratory Syncytial VirusPCR Not Detected (NotDetected); Rhinovirus/Enterovirus PCR Not Detected (NotDetected)
[2023-06-22] MEDS ORDERED: SODIUM PHOSPHATE 3 MMOL/1 ML INFUSION IV STA (22:46)
[2023-06-22] MEDS ORDERED: ALBUTEROL 0.083% NEBU SOLN 3 ML VIAL NEB PRN (22:46)
[2023-06-22] MEDS ORDERED: SODIUM PHOSPHATE 12 MMOL in SODIUM CHLORIDE 0.9% 250 ML IV ONE (23:15)
[2023-06-22] MEDS: ALBUT/IPRATROP 3MG/0.5MG NEB 3 ML VIAL NEB SCH (23:17)
[2023-06-23] MEDS: ENOXAPARIN INJ 40 MG/0.4 ML SYR SQ SCH ×2 (00:25→23:25)
[2023-06-23] MEDS: ALBUT/IPRATROP 3MG/0.5MG NEB 3 ML VIAL NEB SCH ×6 (03:04→23:49)
[2023-06-23 05:26] LABS: Hematocrit (blood only) 42.9 % (42.0-52.0); Hemoglobin 14.1 g/dl (14.0-18.0); Mean Corpuscular Hgb Conc 32.9 g/dL (32.0-36.0); Mean Corpuscular Volume 100.5 fL (80.0-100.0); Platelet Count 175 K/uL (130-400); RDW Coefficient of Variation 12.8 % (11.5-14.5); RDW Standard Deviation 47.8 fL (36.4-46.3); Red Blood Count 4.27 M/uL (4.70-6.10); White Blood Count 34.18 K/ul (4.8-10.8)
[2023-06-23 05:39] LABS: Albumin Level 3.9 gm/dl (3.4-5.0); BUN Creatinine Ratio 15.8 (10-20); Bilirubin Direct 0.3 mg/dl (0-0.2); Calcium 8.3 mg/dl (8.6-10.3); Creatinine Clr Calc Pharmacy 44.7 ml/min; Est GFR (African American) 70.5 ml/min; Est GFR (Non-African American) 60.8 ml/min; Phosphorus 2.7 mg/dl (2.5-4.9); Potassium 3.7 mmol/L (3.5-5.1); Total Protein 7.2 gm/dl (6.0-8.3)
[2023-06-23] MEDS: PIPERACILLIN/TAZOBACTAM 4.5 GM in DEXTROSE 5% MINI-B 100 ML IV SCH ×3 (05:50→21:15)
[2023-06-23] MEDS: UMECLIDINIUM/VILANTEROL 62.5/25MCG 7 PUFFS/INHALER INH SCH (08:07)
[2023-06-23] MEDS: FLUTICASONE FUROATE 100MCG 14 PUFFS/INHALER INH SCH (08:07)
[2023-06-23] MEDS: MONTELUKAST SODIUM 10 MG TABLET PO SCH (08:09)
[2023-06-23] MEDS: PANTOprazole 40 MG TAB PO SCH (08:09)
[2023-06-23] MEDS: guaiFENesin 600 MG TABCR PO SCH ×2 (08:10→21:16)
[2023-06-23] MEDS ORDERED: NON-FORMULARY MEDICATION (Fluticasone-Umeclidin-Vilanter [Trelegy Ellipta] 100-62.5-25 mcg INH SCH (09:00)
[2023-06-23] MEDS: methylPREDNISolone 40 MG in SYRINGE 0 ML IV SCH ×2 (09:14→21:17)
[2023-06-23] MEDS: THEOPHYLLINE 300MG EXTENDED REL TAB PO SCH ×3 (09:14→21:16)
--- NOTE | 2023-06-23 11:36 | Hospitalist Progress Note ---
Date of Service June 23, 2023 Assessment & Plan (1) Pneumonia: Plan: Right lower lobe. Currently on Zosyn, day 2. Nonproductive cough. Will obtain sputum culture if sputum is produced. Serial chest x-rays until resolved. CT as above with RLL infiltrate suggestive of PNA. (2) COPD (chronic obstructive pulmonary disease): Plan: Acute exacerbation associated with pneumonia. Currently on nebulizer treatments and parenteral steroid therapy. Continue to treat underlying pneumonia. (3) Hyperlipidemia: Plan: Stable. Continue lovastatin (4) Hypertension: Plan: Lisinopril has been restarted. (5) GERD (gastroesophageal reflux disease): Plan: Stable. Continue Protonix Plan [facility] Admission and Anticipated Discharge Date Admission Date: June 22, 2023 Subjective Alert and oriented. No distress. He is currently on Zosyn for suspected right lower lobe pneumonia seen on x-ray. Chest CTA negative for PE. Incidental finding of right upper lobe nodule that will need continued observation. He is on intravenous Zosyn, day 2. Also on parenteral Solu-Medrol. Lisinopril has been restarted. Hypophosphatemia has been corrected. MRSA nasal swab is negative Review of Systems 2 Review of Systems: Constitutional-no fever or chills ENT-no blurred vision, no double vision, no epistaxis, no sore throat Respiratory-nonproductive cough. Dyspnea on exertion. No hemoptysis Cardiac-no palpitations, no chest pain, no syncope GI-no nausea, vomiting, diarrhea, melena, hematochezia -no urinary retention, no urinary incontinence, no dysuria, no hematuria Musculoskeletal-no joint pain, no muscle tenderness Skin-no bruising, no rashes, no pruritus Neuro-no isolated weakness, no paresthesia, no weakness Psych-no depression, no anxiety Physical Exam 2 Physical Exam: General-alert and oriented x3, no fevers, no chills HEENT-head atraumatic and normocephalic, pupils equal and reactive to light, extraocular muscles intact Neck-no lymphadenopathy or thyromegaly, trachea midline Chest-diminished breath sounds bilaterally. Faint right lower lobe rhonchi. No wheezing Cardiac-regular rate and rhythm, normal S1 and S2 Abdomen-normal bowel sounds, nontender, no hepatosplenomegaly Extremities-no cyanosis, clubbing, or edema Neuro-cranial nerves II through XII intact, motor and sensory function within normal limits, strength symmetrical, no focal deficits Psych-normal affect, normal mood Results & Data Results & Data Vital Signs (Past 12 Hours) Vital Signs Temp Pulse Pulse Resp BP BP Pulse Ox 06/23/23 08:21 36.5 C 92 H 18 158/97 H 94 06/23/23 07:39 84 16 93 06/23/23 03:05 87 18 96 06/23/23 02:05 90 06/23/23 02:03 06/23/23 02:03 36.4 C L 87 26 H 137/84 93 06/23/23 00:31 95 H 25 H 121/75 95 O2 Del Method 06/23/23 08:21 Room Air 06/23/23 07:39 Room Air 06/23/23 03:05 Room Air 06/23/23 02:05 06/23/23 02:03 Room Air 06/23/23 02:03 Room Air 06/23/23 00:31 Room Air Laboratory Results 06/23/23 04:31 06/23/23 04:37 PG Care Time/CCT Total # of Minutes Spent Total Time Spent with Patient: Total time spent is greater than 50% in coordination of care (as documented) at patient's floor/unit and/or counseling patient: Coding Level of Care Code 92905 SUB INP/OBS CARE 3/50MIN Diagnoses Pneumonia J18.9 COPD (chronic obstructive pulmonary disease) J44.9 Hyperlipidemia E78.5 Hypertension I10 GERD (gastroesophageal reflux disease) K21.9
[2023-06-23] MEDS: lisinopril 40 MG TAB PO SCH (12:16)
--- NOTE | 2023-06-23 12:20 | XRay Report ---
XR chest 1V portable CLINICAL HISTORY: Chest pain, nonspecific TECHNIQUE: Single frontal radiograph of the chest was obtained. Comparison: Comparison is made to chest radiograph 12/10/2014 FINDINGS: No lines and tubes are seen. Calcified aortic knob is seen. Right lower lung airspace opacity is note d. No evidence of pleural effusion or pneumothorax. IMPRESSION: Right lower lung airspace opacity which may represent atelectasis, pneumonia, and/or aspiration. ACT 112: Negative or not required by law. Electronically signed by: Rubén Ray M.D. 06/23/2023 12:18 PM
[2023-06-23 18:09] LABS: A calco-baum cmplx NotReported Not Detected (NotDetected); Bact fragilis Not Reported Not Detected (NotDetected); C auris Not Reported Not Detected (NotDetected); Calbicans Not Reported Not Detected (NotDetected); Candida glabrata Not Reported Not Detected (NotDetected); Candida krusei Not Reported Not Detected (NotDetected); Cneoformans/gatti Not Reported Not Detected (NotDetected); Cparapsilosis Not Reported Not Detected (NotDetected); E cloacae compx Not Reported Not Detected (NotDetected); Efaecalis Not Reported Not Detected (NotDetected); Efaecium Not Reported Not Detected (NotDetected); Enterobacterales Not Reported Not Detected (NotDetected); Escherichia coli Not Reported Not Detected (NotDetected); H influenzae Not Reported Not Detected (NotDetected); K aerogenes Not Reported Not Detected (NotDetected); Koxytoca Not Reported Not Detected (NotDetected); Kpneumoniae grp Not Reported Not Detected (NotDetected); Lmonocyt Not Reported Not Detected (NotDetected); N meningitidis Not Reported Not Detected (NotDetected); P aeruginosa Not Reported Not Detected (NotDetected); Proteus spp Not Reported Not Detected (NotDetected); Salmonella spp Not Reported Not Detected (NotDetected); Smarcescens Not Reported Not Detected (NotDetected); Staph lugdunensis Not Reported Not Detected (NotDetected); Staph spp. Not Reported Not Detected (NotDetected); Staphaureus Not Reported Not Detected (NotDetected); Staphepi Not Reported Not Detected (NotDetected); Stenmaltophilia Not Reported Not Detected (NotDetected); Strep agal(GrpB) Not Reported Not Detected (NotDetected); Strep pneum Not Reported Not Detected (NotDetected); Strep pyog (GrpA) Not Reported Not Detected (NotDetected); Strep spp Not Reported Not Detected (NotDetected)
[2023-06-23] MEDS: AZITHROMYCIN 500 MG in DEXTROSE 5% 250 ML IV SCH (21:15)
[2023-06-23] MEDS: LOVASTATIN 20 MG TAB PO SCH (21:16)
[2023-06-24] MEDS: ALBUT/IPRATROP 3MG/0.5MG NEB 3 ML VIAL NEB SCH ×6 (04:56→22:56)
[2023-06-24] MEDS: PIPERACILLIN/TAZOBACTAM 4.5 GM in DEXTROSE 5% MINI-B 100 ML IV SCH ×3 (05:19→21:25)
[2023-06-24 05:23] LABS: Mean Corpuscular Hemoglobin 32.6 pg (25.0-34.0); Mean Corpuscular Hgb Conc 33.3 g/dL (32.0-36.0); Mean Corpuscular Volume 97.7 fL (80.0-100.0); Mean Platelet Volume 11.3 fL (9.4-12.4); Platelet Count 200 K/uL (130-400); RDW Coefficient of Variation 12.6 % (11.5-14.5); RDW Standard Deviation 45.2 fL (36.4-46.3); Red Blood Count 3.99 M/uL (4.70-6.10); White Blood Count 22.63 K/ul (4.8-10.8)
[2023-06-24 05:41] LABS: BUN Creatinine Ratio 20.6 (10-20); Creatinine Clr Calc Pharmacy 52.5 ml/min; Est GFR (African American) 85.7 ml/min; Est GFR (Non-African American) 73.9 ml/min; Potassium 2.8 mmol/L (3.5-5.1)
[2023-06-24 06:53] LABS: Basophils # (auto) 0.02 K/uL (0.00-0.20); Basophils % (auto) 0.1 %; Immature Granulocytes # (auto) 0.19 K/uL (0.01-0.20); Immature Granulocytes % (auto) 0.8 %; Lymphocytes # (auto) 0.66 K/uL (1.20-3.40); Lymphocytes % (auto) 2.9 %; Monocytes # (auto) 0.66 K/uL (0.11-0.59); Monocytes % (auto) 2.9 %; Neutrophils % (auto) 93.3 %
[2023-06-24] MEDS: FLUTICASONE FUROATE 100MCG 14 PUFFS/INHALER INH SCH (08:59)
[2023-06-24] MEDS: UMECLIDINIUM/VILANTEROL 62.5/25MCG 7 PUFFS/INHALER INH SCH (08:59)
[2023-06-24] MEDS: lisinopril 40 MG TAB PO SCH (09:00)
[2023-06-24] MEDS: PANTOprazole 40 MG TAB PO SCH (09:00)
[2023-06-24] MEDS: methylPREDNISolone 40 MG in SYRINGE 0 ML IV SCH (09:00)
[2023-06-24] MEDS: guaiFENesin 600 MG TABCR PO SCH ×2 (09:00→21:26)
[2023-06-24] MEDS: THEOPHYLLINE 300MG EXTENDED REL TAB PO SCH ×3 (09:00→21:26)
[2023-06-24] MEDS: MONTELUKAST SODIUM 10 MG TABLET PO SCH (09:00)
[2023-06-24] MEDS: POTASSIUM CHLORIDE CRTAB 20 MEQ TABCR PO SCH ×2 (11:31→21:26)
--- NOTE | 2023-06-24 12:20 | Hospitalist Progress Note ---
Date of Service June 24, 2023 Assessment & Plan (1) Bacteremia: Plan: Gram-negative's isolated. Final identification pending. He remains on intravenous Zosyn, day 3. Infectious disease consultation requested. Repeat blood cultures every 2 days until negative. (2) Pneumonia: Plan: Right lower lobe. Currently on Zosyn, day 3. Nonproductive cough. Will obtain sputum culture if sputum is produced. Serial chest x-rays until resolved. CT as above with RLL infiltrate suggestive of PNA. (3) COPD (chronic obstructive pulmonary disease): Plan: Acute exacerbation associated with pneumonia. Currently on nebulizer treatments . Improved. Methylprednisolone discontinued. Continue to treat underlying pneumonia. (4) Hyperlipidemia: Plan: Stable. Continue lovastatin (5) Hypertension: Plan: Lisinopril has been restarted. (6) GERD (gastroesophageal reflux disease): Plan: Stable. Continue Protonix Plan Anticipate eventual return to the [facility] on oral antibiotic. Admission and Anticipated Discharge Date Admission Date: June 22, 2023 Subjective Alert. No distress. Unfortunately, blood cultures are positive for gram- negative rods. Blood cultures will be repeated until negative. Infectious disease consultation requested. He remains on intravenous Zosyn, day 3. COPD exacerbation has resolved. Solu-Medrol discontinued. Hypophosphatemia corrected to 2.7. He remains on room air. Review of Systems 2 Review of Systems: Constitutional-no fever or chills ENT-no blurred vision, no double vision, no epistaxis, no sore throat Respiratory-nonproductive cough. Dyspnea on exertion. No hemoptysis Cardiac-no palpitations, no chest pain, no syncope GI-no nausea, vomiting, diarrhea, melena, hematochezia -no urinary retention, no urinary incontinence, no dysuria, no hematuria Musculoskeletal-no joint pain, no muscle tenderness Skin-no bruising, no rashes, no pruritus Neuro-no isolated weakness, no paresthesia, no weakness Psych-no depression, no anxiety Physical Exam 2 Physical Exam: General-alert and oriented x3, no fevers, no chills HEENT-head atraumatic and normocephalic, pupils equal and reactive to light, extraocular muscles intact Neck-no lymphadenopathy or thyromegaly, trachea midline Chest-diminished breath sounds bilaterally. Faint right lower lobe rhonchi. No wheezing Cardiac-regular rate and rhythm, normal S1 and S2 Abdomen-normal bowel sounds, nontender, no hepatosplenomegaly Extremities-no cyanosis, clubbing, or edema Neuro-cranial nerves II through XII intact, motor and sensory function within normal limits, strength symmetrical, no focal deficits Psych-normal affect, normal mood Results & Data Results & Data Vital Signs (Past 12 Hours) Vital Signs Temp Pulse Resp BP Pulse Ox O2 Del Method 06/24/23 11:56 36.8 C 99 H 17 129/81 93 Room Air 06/24/23 10:16 97 H 16 94 Room Air 06/24/23 07:33 98 H 20 94 Room Air 06/24/23 07:33 36.6 C 94 H 17 126/78 94 Room Air 06/24/23 03:59 36.5 C 86 18 117/71 94 Room Air Laboratory Results 06/24/23 04:19 06/24/23 04:19 PG Care Time/CCT Total # of Minutes Spent Total Time Spent with Patient: Total time spent is greater than 50% in coordination of care (as documented) at patient's floor/unit and/or counseling patient: Coding Level of Care Code 34156 SUB INP/OBS CARE 3/50MIN Diagnoses Bacteremia R78.81 Pneumonia J18.9 COPD (chronic obstructive pulmonary disease) J44.9 Hyperlipidemia E78.5 Hypertension I10 GERD (gastroesophageal reflux disease) K21.9
--- NOTE | 2023-06-24 17:45 | Electrocardiogram Report ---
Test Reason : Blood Pressure : / mmHG Vent. Rate : 100 BPM Atrial Rate : 100 BPM P-R Int : 166 ms QRS Dur : 084 ms QT Int : 324 ms P-R-T Axes : 095 079 061 degrees QTc Int : 417 ms Normal sinus rhythm Normal ECG When compared with ECG of 09-DEC-2014 01:24, ST elevation now present in Inferior leads Confirmed by Tremayne Baptiste ([id number]) on 06/24/2023 5:44:58 PM Referred By: [facility] Confirmed By:Tremayne Baptiste
--- NOTE | 2023-06-24 17:58 | Electrocardiogram Report ---
Test Reason : Blood Pressure : / mmHG Vent. Rate : 090 BPM Atrial Rate : 090 BPM P-R Int : 160 ms QRS Dur : 086 ms QT Int : 360 ms P-R-T Axes : 067 080 065 degrees QTc Int : 441 ms Poor data quality, interpretation may be adversely affected Normal sinus rhythm Normal ECG When compared with ECG of 22-JUN-2023 19:20, (unconfirmed) No significant change Confirmed by Tremayne Baptiste ([id number]) on 06/24/2023 5:58:01 PM Referred By: [facility] Confirmed By:Tremayne Baptiste
[2023-06-24] MEDS: LOVASTATIN 20 MG TAB PO SCH (21:26)
[2023-06-24] MEDS: AZITHROMYCIN 500 MG in DEXTROSE 5% 250 ML IV SCH (21:26)
[2023-06-24] MEDS: ENOXAPARIN INJ 40 MG/0.4 ML SYR SQ SCH (21:27)
[2023-06-25 02:22] LABS: Appearance Urine Clear (Clear); Bacteria Urine Automated Negative (Negative); Bilirubin Urine Negative (Negative); Blood Urine Trace (Negative); Color Urine Yellow; Epithelial Cell Urine Auto >30 /lpf (0-5); Glucose Urine UA Negative (Negative); Ketones Urine Trace (Negative); Leukocyte Esterase Urine Negative (Negative); Nitrite Urine Negative (Negative); Protein Urine 2+ (Negative); RBC Urine Automated 0-4 /hpf (0-4); Specific Gravity Urine 1.024 (1.000-1.030); Urobilinogen Urine Negative (Negative); pH Urine 5.5 (4.5-7.5)
[2023-06-25] MEDS: ALBUT/IPRATROP 3MG/0.5MG NEB 3 ML VIAL NEB SCH ×4 (03:26→14:15)
[2023-06-25] MEDS: PIPERACILLIN/TAZOBACTAM 4.5 GM in DEXTROSE 5% MINI-B 100 ML IV SCH ×3 (05:00→21:23)
[2023-06-25 05:23] LABS: Basophils # (auto) 0.03 K/uL (0.00-0.20); Basophils % (auto) 0.2 %; Hematocrit (blood only) 41.9 % (42.0-52.0); Hemoglobin 14.1 g/dl (14.0-18.0); Immature Granulocytes # (auto) 0.18 K/uL (0.01-0.20); Lymphocytes # (auto) 1.03 K/uL (1.20-3.40); Lymphocytes % (auto) 5.9 %; Mean Corpuscular Hemoglobin 32.7 pg (25.0-34.0); Mean Corpuscular Hgb Conc 33.7 g/dL (32.0-36.0); Mean Corpuscular Volume 97.2 fL (80.0-100.0); Mean Platelet Volume 10.6 fL (9.4-12.4); Monocytes # (auto) 1.05 K/uL (0.11-0.59); Neutrophils # (auto) 15.09 K/uL (1.40-6.50); Neutrophils % (auto) 86.9 %; Platelet Count 241 K/uL (130-400); RDW Coefficient of Variation 12.7 % (11.5-14.5); RDW Standard Deviation 46.5 fL (36.4-46.3); Red Blood Count 4.31 M/uL (4.70-6.10); White Blood Count 17.38 K/ul (4.8-10.8)
[2023-06-25 05:35] LABS: BUN Creatinine Ratio 20.7 (10-20); Calcium 8.8 mg/dl (8.6-10.3); Creatinine Clr Calc Pharmacy 43.9 ml/min; Est GFR (Non-African American) 59.6 ml/min; Potassium 3.4 mmol/L (3.5-5.1)
[2023-06-25] MEDS: PANTOprazole 40 MG TAB PO SCH (09:03)
[2023-06-25] MEDS: FLUTICASONE FUROATE 100MCG 14 PUFFS/INHALER INH SCH (09:03)
[2023-06-25] MEDS: THEOPHYLLINE 300MG EXTENDED REL TAB PO SCH ×3 (09:03→21:24)
[2023-06-25] MEDS: UMECLIDINIUM/VILANTEROL 62.5/25MCG 7 PUFFS/INHALER INH SCH (09:03)
[2023-06-25] MEDS: lisinopril 40 MG TAB PO SCH (09:04)
[2023-06-25] MEDS: guaiFENesin 600 MG TABCR PO SCH ×2 (09:04→21:25)
[2023-06-25] MEDS: POTASSIUM CHLORIDE CRTAB 20 MEQ TABCR PO SCH ×2 (09:04→21:25)
[2023-06-25] MEDS: MONTELUKAST SODIUM 10 MG TABLET PO SCH (09:04)
--- NOTE | 2023-06-25 10:27 | Infectious Disease Consult ---
Date of Consultation June 25, 2023 Assessment & Plan (1) Gram-negative bacteremia: (2) Pneumonia: (3) Leukocytosis: Plan Micro: 06/24 BCx x2: NGTD 06/22 BCx x2: GNRs in 2/4 bottles. BCID PCR panel negative. Abx: Pip-tazo 06/22 - present Azithromycin 500 mg 06/22 - 06/24 Ceftriaxone 06/22 Problems: #GNR bacteremia #Pneumonia 77 yo incarcerated M with COPD presented on 06/22 with shortness of breath, cough, admitted with pneumonia and GNR bacteremia. Patient reported some mild URI symptoms 3 to 4 weeks ago which resolved. Over the last 2 to 3 days, he had been having increased shortness of breath and cough productive of thick yellow sputum. Denied fevers, chills, sweats, hemoptysis. On presentation, T37.6, HR 102, BP 97/68, 91% on room air. Labs showed WBC 37.2, procalcitonin 6.46. RVP negative. MRSA negative. Blood cultures obtained, BCID PCR panel negative, but grew GNRs in 2/4 bottles. CTA chest showed mild to moderate emphysematous changes throughout both lungs, 9 cm area of infiltrate in the posterior aspect of the right lower lobe consistent with pneumonia, pleural-based 1 cm nodular density in the posterior right upper lobe, possible infiltrate or atelectasis. He was given empiric ceftriaxone and azithromycin in the ED, then switched to pip-tazo. Pt appear to be clinically improving, with downtrend in leukocytosis, remains on room air. GNR bacteremia may be secondary to pneumonia, although more frequently would see a gram positive bacteria. Pt without abdominal symptoms. No hardware. Recommendations: -Follow-up GNR identification -Continue pip-tazo for now Will continue to follow. Please page [facility] with further questions. Consultation Information Consultation was provided via telemedicine using two-way real-time interactive t elecommunication between the patient and the telemedicine provider. For the duration of the visit, the provider was performing the assessment from a different facility than the patient. This includesuse of bluetooth stethoscope forauscultationperformed by the telepresenter that the telemedicine provider can hear if described in the physical exam. [facility] contact information: Please call [facility] . (Phone Number For Physician Use Only) After establishing a telemedicine visit, patient was: Patient was verified with two unique identifiers, Patient/authorized rep acknowledged consent and understanding and Gave permission to continue telehealth session Time Spent with Patient: Initial => 40 min History of Present Illness Reason for Consultation: gram negative bacteremia Requesting Physician: Dr. Perez Attending Physician: Jose Perez History of Present Illness 77 yo incarcerated M with COPD presented on 06/22 with shortness of breath. Patient reported some mild URI symptoms 3 to 4 weeks ago which resolved. Over the last 2 to 3 days, he had been having increased shortness of breath and cough productive of thick yellow sputum. Denied fevers, chills, sweats, hemoptysis. On presentation, T37.6, HR 102, BP 97/68, 91% on room air. Labs showed WBC 37.2, procalcitonin 6.46. RVP negative. MRSA negative. Blood cultures obtained, BCID PCR panel negative. CTA chest showed mild to moderate emphysematous changes throughout both lungs, 9 cm area of infiltrate in the posterior aspect of the right lower lobe consistent with pneumonia, pleural- based 1 cm nodular density in the posterior right upper lobe, possible infiltrate or atelectasis. He was given empiric ceftriaxone and azithromycin in the ED, then switched to pip-tazo. Admission blood cultures grew GNR's in 2/4 bottles, awaiting identification. WBC has down trended to 17.38 today. Repeat blood cultures from 06/24 are NGTD. Patient reports feeling good. He continues to have cough, variably productive versus dry. Denies abdominal pain, nausea, vomiting, diarrhea. Denies having any hardware in his body. Allergies Allergy/AdvReac Type Severity Reaction Status Date / Time No Known Allergies Allergy Verified 06/22/23 21:25 Home Medications Medication Instructions Recorded Confirmed Type lisinopril 40 mg tablet 40 mg PO QAM 04/08/19 06/22/23 History lovastatin 20 mg tablet 20 mg PO PM 04/08/19 06/22/23 History montelukast 10 mg tablet 10 mg PO QAM 04/08/19 06/22/23 History pantoprazole 40 mg tablet,delayed 40 mg PO QAM 04/08/19 06/22/23 History release theophylline 300 mg 300 mg PO TID 04/08/19 06/22/23 History tablet,extended release,12 hr albuterol sulfate 90 mcg/actuation 2 puff inhalation QID PRN 06/22/23 06/22/23 History aerosol inhaler Shortness Of Breath fluticasone fur. 100 mcg-umeclid 1 inh inhalation DAILY 06/22/23 06/22/23 History 62.5 mcg-vilant 25 mcg inhalat.powder (Trelegy Ellipta) hydrochlorothiazide 12.5 mg tablet 12.5 mg PO DAILY 06/22/23 06/22/23 History vit A 300 mcg-C 200 mg-E 27 1 tab PO DAILY 06/22/23 06/22/23 History mg-lutein 2 mg and minerals tablet (Ocuvite with Lutein) Patient History Medical History Aortic aneurysm UNSPECIFIED PER MEDICAL RECORD GERD (gastroesophageal reflux disease) SOB (shortness of breath) on exertion Chronic obstructive pulmonary disease Hyperlipidemia Hypertension Surgical History History of cataract surgery RT H/O aortic aneurysm repair Social History Smoking Status: Former smoker Tobacco Type: Cigarettes Cigarettes Per Day: SMOKED 1 PPD X 60 YRS; Hx Alcohol Use: No Hx Substance Use: No Preferred Language: Maltese Communication Ability: Effective Medical Observer Required: No Beliefs That Will Affect Care: None Current Living Situation: Other Current Living Situation Comment: nursing home Feels Safe at Home: Yes Assistive Devices: Glasses and Walker Review of System A complete ROS was performed and is negative except as mentioned in the HPI. Physical Exam Physical Exam: GEN: Well-appearing, in NAD. RESP: No increased work of breathing ABD: Soft, non-distended. Non-tender to palpation. SKIN: No lesions or rashes on exposed skin. NEURO: Alert and oriented. Answers all questions appropriately. Speech not slur red. PSYCH: Normal mood, affect appropriate. Results & Data Vital Signs (Past 12 Hours) Vital Signs Temp Pulse Pulse Pulse Resp BP Pulse Ox 06/25/23 07:53 36.5 C 51 L 17 160/91 H 95 06/25/23 07:25 106 H 06/25/23 07:23 102 H 22 94 06/25/23 03:27 104 H 18 92 06/25/23 03:15 36.6 C 107 H 16 119/78 91 06/24/23 23:25 36.4 C L 116 H 18 143/88 H 94 06/24/23 22:57 106 H 16 93 O2 Del Method 06/25/23 07:53 Room Air 06/25/23 07:25 06/25/23 07:23 Room Air 06/25/23 03:27 Room Air 06/25/23 03:15 Room Air 06/24/23 23:25 Room Air 06/24/23 22:57 Room Air Laboratory Results Short CBC 06/25/23 Range/Units 04:47 WBC 17.38 H (4.8-10.8) K/ul Hgb 14.1 (14.0-18.0) g/dl Hct 41.9 L (42.0-52.0) % Plt Count 241 (130-400) K/uL BMP 06/25/23 04:47 Sodium 140 Potassium 3.4 L D Chloride 107 Carbon Dioxide 22 BUN 24 H Creatinine 1.16 Glucose 116 H Calcium 8.8 Urine 06/25/23 Range/Units 01:45 Urine Color Yellow Urine Appearance Clear (Clear) Urine pH 5.5 (4.5-7.5) Ur Specific [place] 1.024 (1.000-1.030) Urine Protein 2+ H (Negative) Urine Glucose (UA) Negative (Negative) Medications Administered Current Inpatient Medications Acetaminophen (Acetaminophen 325 Mg Tab) 650 mg PO Q4H PRN PRN Reason: Pain or Fever Stop: 07/22/23 22:45 Albuterol (Albut/Ipratrop 3mg/0.5mg Neb 3 Ml Vial) 3 ml NEB Q4R [facility]; Protocol Stop: 07/22/23 22:59 Last Admin: 06/25/23 14:15 Dose: 3 ml Albuterol (Albuterol 0.083% Nebu Soln 3 Ml Vial) 2.5 mg NEB Q2H PRN; Protocol PRN Reason: SOB/Wheeze Stop: 07/22/23 22:45 Enoxaparin Sodium (Enoxaparin Inj 40 Mg/0.4 Ml Syr) 40 mg SQ Q24H [facility] Stop: 07/22/23 22:59 Last Admin: 06/24/23 21:27 Dose: 40 mg Fluticasone Furoate (Fluticasone Furoate 100mcg 14 Puffs/Inhaler) 1 puffs INH DAILY [facility] Stop: 07/23/23 08:59 Last Admin: 06/25/23 09:03 Dose: 1 puffs Guaifenesin (Guaifenesin 600 Mg Tabcr) 1,200 mg PO Q12 [facility] Stop: 07/23/23 08:59 Last Admin: 06/25/23 09:04 Dose: 1,200 mg Piperacillin Sod/Tazobactam (Sod 4.5 gm/ Dextrose) 100 mls @ 25 mls/hr IV Q8H [facility]; Protocol Stop: 06/30/23 05:59 Last Admin: 06/25/23 14:22 Dose: 25 mls/hr Azithromycin 500 mg/ Dextrose 255 mls @ 127.5 mls/hr IV Q24H [facility] Stop: 06/30/23 21:59 Last Infusion: 06/24/23 23:30 Dose: Infused Lisinopril (Lisinopril 40 Mg Tab) 40 mg PO QAM [facility] Stop: 07/23/23 10:29 Last Admin: 06/25/23 09:04 Dose: 40 mg Lovastatin (Lovastatin 20 Mg Tab) 20 mg PO PM [facility] Stop: 07/23/23 20:59 Last Admin: 06/24/23 21:26 Dose: 20 mg Montelukast Sodium (Montelukast Sodium 10 Mg Tablet) 10 mg PO QAM [facility] Stop: 07/23/23 08:59 Last Admin: 06/25/23 09:04 Dose: 10 mg Pantoprazole Sodium (Pantoprazole 40 Mg Tab) 40 mg PO QAM [facility] Stop: 07/23/23 08:59 Last Admin: 06/25/23 09:03 Dose: 40 mg Polyethylene Glycol (Polyethylene (Miralax) 17 Gm Pack) 17 gm PO BID [facility] Stop: 07/25/23 11:14 Last Admin: 06/25/23 12:07 Dose: 17 gm Potassium Chloride (Potassium Chloride Crtab 20 Meq Tabcr) 20 meq PO BID [facility] Stop: 07/24/23 10:29 Last Admin: 06/25/23 09:04 Dose: 20 meq Theophylline (Theophylline 300mg Extended Rel Tab) 300 mg PO TID [facility] Stop: 07/23/23 08:59 Last Admin: 06/25/23 14:22 Dose: 300 mg Umeclidinium/Vilanterol (Umeclidinium/Vilanterol 62.5/25mcg 7 Puffs/Inhaler) 1 puffs INH DAILY [facility] Stop: 07/23/23 08:59 Last Admin: 06/25/23 09:03 Dose: 1 puffs (2) Pneumonia Laterality: right Lung location: lower lobe of lung Pneumonia type: due to unspecified organism Qualified Code(s): J18.9 - Pneumonia, unspecified organism (3) Leukocytosis Leukocytosis type: bandemia Qualified Code(s): D72.825 - Bandemia
[2023-06-25] MEDS: POLYETHYLENE (MIRALAX) 17 GM PACK PO SCH ×2 (12:07→21:23)
[2023-06-25] MEDS: ALBUTEROL HFA 8 GM INHALER INH SCH ×2 (19:59→22:44)
[2023-06-25] MEDS: LOVASTATIN 20 MG TAB PO SCH (21:24)
[2023-06-25] MEDS: AZITHROMYCIN 500 MG in DEXTROSE 5% 250 ML IV SCH (21:44)
--- NOTE | 2023-06-25 21:48 | Hospitalist Progress Note ---
Date of Service June 25, 2023 Assessment & Plan (1) Bacteremia: Plan: Gram-negative's isolated. Final identification pending. He remains on intravenous Zosyn, day 3. Infectious disease consultation requested. Repeat blood cultures every 2 days until negative. Awaiting cultures (2) Pneumonia: Plan: Right lower lobe. Currently on Zosyn, day 4. Nonproductive cough. Will obtain sputum culture if sputum is produced. Serial chest x-rays until resolved. CT as above with RLL infiltrate suggestive of PNA. (3) COPD (chronic obstructive pulmonary disease): Plan: Acute exacerbation associated with pneumonia. Currently on nebulizer treatments . Improved. Methylprednisolone discontinued. Continue to treat underlying p neumonia. (4) Hyperlipidemia: Plan: Stable. Continue lovastatin (5) Hypertension: Plan: Lisinopril has been restarted. (6) GERD (gastroesophageal reflux disease): Plan: Stable. Continue Protonix Plan Anticipate eventual return to the [facility] on oral antibiotic. Admission and Anticipated Discharge Date Admission Date: June 22, 2023 Subjective Patient reports no new symptoms. Review of Systems Review of Systems: All systems reviewed & are unremarkable except as noted in HPI & below Physical Exam Physical Exam: General-alert and oriented x3, no fevers, no chills HEENT-head atraumatic and normocephalic Neck-no lymphadenopathy or thyromegaly, trachea midline Chest-diminished breath sounds bilaterally. Faint right lower lobe rhonchi. No wheezing Cardiac-regular rate and rhythm, normal S1 and S2 Abdomen-normal bowel sounds, nontender, no hepatosplenomegaly Extremities-no cyanosis, clubbing, or edema Neuro-cranial nerves II through XII intact Psych-normal affect, normal mood Results & Data Results & Data Vital Signs (Past 12 Hours) Vital Signs Temp Pulse Pulse Pulse Resp BP Pulse Ox 06/25/23 20:03 36.7 C 86 18 158/92 H 95 06/25/23 20:00 92 H 18 95 06/25/23 16:17 99 H 06/25/23 15:47 36.8 C 96 H 17 151/96 H 93 06/25/23 14:15 99 H 18 93 06/25/23 11:38 36.4 C L 97 H 20 152/96 H 91 06/25/23 11:38 06/25/23 11:07 92 H 18 91 O2 Del Method 06/25/23 20:03 Room Air 06/25/23 20:00 Room Air 06/25/23 16:17 06/25/23 15:47 Room Air 06/25/23 14:15 Room Air 06/25/23 11:38 Room Air 06/25/23 11:38 Room Air 06/25/23 11:07 Room Air PG Care Time/CCT Total # of Minutes Spent Total Time Spent with Patient: Total time spent is greater than 50% in coordination of care (as documented) at patient's floor/unit and/or counseling patient: Coding Level of Care Code 57193 SUB INP/OBS CARE 2/35MIN Diagnoses Bacteremia R78.81 Pneumonia J18.9 COPD (chronic obstructive pulmonary disease) J44.9 Hyperlipidemia E78.5 Hypertension I10 GERD (gastroesophageal reflux disease) K21.9
[2023-06-25] MEDS: ENOXAPARIN INJ 40 MG/0.4 ML SYR SQ SCH (23:06)
[2023-06-26] MEDS: ALBUTEROL HFA 8 GM INHALER INH SCH ×6 (02:28→22:00)
[2023-06-26] MEDS: PIPERACILLIN/TAZOBACTAM 4.5 GM in DEXTROSE 5% MINI-B 100 ML IV SCH ×3 (05:17→22:02)
[2023-06-26 05:26] LABS: Basophils % (auto) 0.6 %; Eosinophils # (auto) 0.01 K/uL (0.00-0.50); Eosinophils % (auto) 0.1 %; Hematocrit (blood only) 43.5 % (42.0-52.0); Hemoglobin 14.6 g/dl (14.0-18.0); Immature Granulocytes # (auto) 0.46 K/uL (0.01-0.20); Immature Granulocytes % (auto) 2.9 %; Lymphocytes # (auto) 1.61 K/uL (1.20-3.40); Lymphocytes % (auto) 10.3 %; Mean Corpuscular Hgb Conc 33.6 g/dL (32.0-36.0); Mean Corpuscular Volume 98.4 fL (80.0-100.0); Mean Platelet Volume 10.9 fL (9.4-12.4); Monocytes % (auto) 9.6 %; Neutrophils # (auto) 11.99 K/uL (1.40-6.50); Neutrophils % (auto) 76.5 %; Platelet Count 243 K/uL (130-400); RDW Coefficient of Variation 13.1 % (11.5-14.5); RDW Standard Deviation 47.3 fL (36.4-46.3); Red Blood Count 4.42 M/uL (4.70-6.10); White Blood Count 15.67 K/ul (4.8-10.8)
[2023-06-26 05:35] LABS: BUN Creatinine Ratio 19.6 (10-20); Calcium 8.7 mg/dl (8.6-10.3); Creatinine Clr Calc Pharmacy 47.6 ml/min; Est GFR (African American) 76.1 ml/min; Est GFR (Non-African American) 65.7 ml/min; Potassium 3.6 mmol/L (3.5-5.1)
[2023-06-26] MEDS: ACETAMINOPHEN 325 MG TAB PO PRN (06:02)
[2023-06-26] MEDS: FLUTICASONE FUROATE 100MCG 14 PUFFS/INHALER INH SCH (09:15)
[2023-06-26] MEDS: lisinopril 40 MG TAB PO SCH (09:16)
[2023-06-26] MEDS: guaiFENesin 600 MG TABCR PO SCH ×2 (09:16→21:58)
[2023-06-26] MEDS: UMECLIDINIUM/VILANTEROL 62.5/25MCG 7 PUFFS/INHALER INH SCH (09:16)
[2023-06-26] MEDS: POTASSIUM CHLORIDE CRTAB 20 MEQ TABCR PO SCH ×2 (09:16→21:59)
[2023-06-26] MEDS: MONTELUKAST SODIUM 10 MG TABLET PO SCH (09:16)
[2023-06-26] MEDS: PANTOprazole 40 MG TAB PO SCH (09:16)
[2023-06-26] MEDS: THEOPHYLLINE 300MG EXTENDED REL TAB PO SCH ×3 (09:16→22:00)
[2023-06-26] MEDS: POLYETHYLENE (MIRALAX) 17 GM PACK PO SCH ×2 (09:17→21:59)
--- NOTE | 2023-06-26 14:41 | Infectious Disease Progress Nt ---
Date of Service June 26, 2023 Assessment & Plan (1) Gram-negative bacteremia: (2) Pneumonia: (3) Leukocytosis: Plan Micro: 06/24 BCx x2: NGTD 06/22 BCx x2: Pseudomonas stutzeri in 2/4 bottles (diehl-sensitive). BCID PCR panel negative. Abx: Pip-tazo 06/22 - present Azithromycin 500 mg 06/22 - 06/24 Ceftriaxone 06/22 Problems: #Pseudomonas stutzeri bacteremia #Pneumonia 77 yo incarcerated M with COPD presented on 06/22 with shortness of breath, cough, admitted with pneumonia and Pseudomonas stutzeri bacteremia. Patient reported some mild URI symptoms 3 to 4 weeks ago which resolved. Over the last 2 to 3 days, he had been having increased shortness of breath and cough pro ductive of thick yellow sputum. Denied fevers, chills, sweats, hemoptysis. On presentation, T37.6, HR 102, BP 97/68, 91% on room air. Labs showed WBC 37.2, procalcitonin 6.46. RVP negative. MRSA negative. Blood cultures obtained, BCID PCR panel negative, but grew Pseudomonas stutzeri in 2/4 bottles. CTA chest showed mild to moderate emphysematous changes throughout both lungs, 9 cm area of infiltrate in the posterior aspect of the right lower lobe consistent with pneumonia, pleural-based 1 cm nodular density in the posterior right upper lobe, possible infiltrate or atelectasis. He was given empiric ceftriaxone and azithromycin in the ED, then switched to pip-tazo. Pt appear to be clinically improving, with downtrend in leukocytosis, remains on room air. Pseudomonas stutzeri bacteremia likely secondary to pneumonia. Repeat blood culture sNGTD. Recommendations: -Can transition to levofloxacin 750 mg PO daily to complete a total 10 day course through 07/01 Will sign off. Please page [facility] with further questions. Admission and Anticipated Discharge Date Admission Date: June 22, 2023 Subjective This patient recommendation is based on a telemedicine consult request which was completed asynchronously through chart review and information provided by the primary physician. The patient was not seen or examined today. The evaluation is consultative in nature and all patient care and treatment decisions can either be accepted or rejected by the patient's primary hospital-based treating physician using their own independent medical judgment for their patient. Time Spent Reviewing Chart: 11 - 20 minutes Patient not seen GNR in blood culture identified as Pseudomonas Review of System Patient not seen Physical Exam Physical Exam: Patient not seen Results & Data Vital Signs (Past 12 Hours) Vital Signs Temp Pulse Pulse Resp BP Pulse Ox O2 Del Method 06/26/23 11:17 36.4 C L 89 17 136/86 94 Nasal Cannula 06/26/23 10:17 94 H 18 92 Room Air 06/26/23 07:59 Nasal Cannula 06/26/23 07:50 36.5 C 89 18 129/88 94 Nasal Cannula 06/26/23 07:30 112 H 06/26/23 07:29 94 H 16 92 Room Air 06/26/23 03:02 36.6 C 90 20 137/93 96 Nasal Cannula O2 Flow Rate 06/26/23 11:17 1.5 06/26/23 10:17 06/26/23 07:59 2 06/26/23 07:50 1.5 06/26/23 07:30 06/26/23 07:29 06/26/23 03:02 2 Laboratory Results Short CBC 06/26/23 Range/Units 04:29 WBC 15.67 H (4.8-10.8) K/ul Hgb 14.6 (14.0-18.0) g/dl Hct 43.5 (42.0-52.0) % Plt Count 243 (130-400) K/uL BMP 06/26/23 04:29 Sodium 140 Potassium 3.6 Chloride 106 Carbon Dioxide 28 BUN 21 Creatinine 1.07 Glucose 99 Calcium 8.7 Medications Administered Current Inpatient Medications Acetaminophen (Acetaminophen 325 Mg Tab) 650 mg PO Q4H PRN PRN Reason: Pain or Fever Stop: 07/22/23 22:45 Last Admin: 06/26/23 06:02 Dose: 650 mg Albuterol (Albuterol 0.083% Nebu Soln 3 Ml Vial) 2.5 mg NEB Q2H PRN; Protocol PRN Reason: SOB/Wheeze Stop: 07/22/23 22:45 Albuterol (Albuterol Hfa 8 Gm Inhaler) 2 puffs INH Q4R [facility] Stop: 07/25/23 18:59 Last Admin: 06/26/23 10:16 Dose: 2 puffs Enoxaparin Sodium (Enoxaparin Inj 40 Mg/0.4 Ml Syr) 40 mg SQ Q24H [facility] Stop: 07/22/23 22:59 Last Admin: 06/25/23 23:06 Dose: 40 mg Fluticasone Furoate (Fluticasone Furoate 100mcg 14 Puffs/Inhaler) 1 puffs INH DAILY [facility] Stop: 07/23/23 08:59 Last Admin: 06/26/23 09:15 Dose: 1 puffs Guaifenesin (Guaifenesin 600 Mg Tabcr) 1,200 mg PO Q12 [facility] Stop: 07/23/23 08:59 Last Admin: 06/26/23 09:16 Dose: 1,200 mg Piperacillin Sod/Tazobactam (Sod 4.5 gm/ Dextrose) 100 mls @ 25 mls/hr IV Q8H [facility]; Protocol Stop: 06/30/23 05:59 Last Admin: 06/26/23 13:25 Dose: 25 mls/hr Azithromycin 500 mg/ Dextrose 255 mls @ 127.5 mls/hr IV Q24H [facility] Stop: 06/30/23 21:59 Last Infusion: 06/26/23 00:11 Dose: Infused Lisinopril (Lisinopril 40 Mg Tab) 40 mg PO QAM [facility] Stop: 07/23/23 10:29 Last Admin: 06/26/23 09:16 Dose: 40 mg Lovastatin (Lovastatin 20 Mg Tab) 20 mg PO PM [facility] Stop: 07/23/23 20:59 Last Admin: 06/25/23 21:24 Dose: 20 mg Montelukast Sodium (Montelukast Sodium 10 Mg Tablet) 10 mg PO QAM [facility] Stop: 07/23/23 08:59 Last Admin: 06/26/23 09:16 Dose: 10 mg Pantoprazole Sodium (Pantoprazole 40 Mg Tab) 40 mg PO QAM [facility] Stop: 07/23/23 08:59 Last Admin: 06/26/23 09:16 Dose: 40 mg Polyethylene Glycol (Polyethylene (Miralax) 17 Gm Pack) 17 gm PO BID [facility] Stop: 07/25/23 11:14 Last Admin: 06/26/23 09:17 Dose: Not Given Potassium Chloride (Potassium Chloride Crtab 20 Meq Tabcr) 20 meq PO BID [facility] Stop: 07/24/23 10:29 Last Admin: 06/26/23 09:16 Dose: 20 meq Theophylline (Theophylline 300mg Extended Rel Tab) 300 mg PO TID [facility] Stop: 07/23/23 08:59 Last Admin: 06/26/23 13:25 Dose: 300 mg Umeclidinium/Vilanterol (Umeclidinium/Vilanterol 62.5/25mcg 7 Puffs/Inhaler) 1 puffs INH DAILY [facility] Stop: 07/23/23 08:59 Last Admin: 06/26/23 09:16 Dose: 1 puffs (2) Pneumonia Laterality: right Lung location: lower lobe of lung Pneumonia type: due to unspecified organism Qualified Code(s): J18.9 - Pneumonia, unspecified organism (3) Leukocytosis Leukocytosis type: bandemia Qualified Code(s): D72.825 - Bandemia
--- NOTE | 2023-06-26 21:45 | Hospitalist Progress Note ---
Date of Service June 26, 2023 Assessment & Plan (1) Bacteremia: Plan: Gram-negative's isolated. Final identification pending. He remains on intravenous Zosyn, day 5. Infectious disease consultation requested. Repeat blood cultures every 2 days until negative. anticipate discharge on 06/27 if continues to do well (2) Pneumonia: Plan: Right lower lobe. Currently on Zosyn, day 5. Nonproductive cough. Will obtain sputum culture if sputum is produced. Serial chest x-rays until resolved. CT as above with RLL infiltrate suggestive of PNA. (3) COPD (chronic obstructive pulmonary disease): Plan: Acute exacerbation associated with pneumonia. Currently on nebulizer treatments . Improved. Methylprednisolone discontinued. Continue to treat underlying pneumonia. (4) Hyperlipidemia: Plan: Stable. Continue lovastatin (5) Hypertension: Plan: Lisinopril has been restarted. (6) GERD (gastroesophageal reflux disease): Plan: Stable. Continue Protonix Plan Anticipate eventual return to the [facility] on oral antibiotic. Admission and Anticipated Discharge Date Admission Date: June 22, 2023 Subjective 77 yo male reports no new symptoms. Review of Systems Review of Systems: All systems reviewed & are unremarkable except as noted in HPI & below Physical Exam Physical Exam: General-alert and oriented x3, no fevers, no chills HEENT-head atraumatic and normocephalic Neck-no lymphadenopathy or thyromegaly, trachea midline Chest-diminished breath sounds bilaterally. Faint right lower lobe rhonchi. No wheezing Cardiac-regular rate and rhythm, normal S1 and S2 Abdomen-normal bowel sounds, nontender, no hepatosplenomegaly Extremities-no cyanosis, clubbing, or edema Neuro-cranial nerves II through XII intact Psych-normal affect, normal mood Results & Data Results & Data Vital Signs (Past 12 Hours) Vital Signs Temp Pulse Pulse Resp BP BP Pulse Ox 06/26/23 20:16 36.4 C L 95 H 20 159/100 H 93 06/26/23 19:51 101 H 19 91 06/26/23 15:38 80 06/26/23 15:11 36.4 C L 85 18 164/92 H 93 06/26/23 14:58 85 18 93 06/26/23 11:17 36.4 C L 89 17 136/86 94 06/26/23 10:17 94 H 18 92 O2 Del Method O2 Flow Rate 06/26/23 20:16 Nasal Cannula 2 06/26/23 19:51 06/26/23 15:38 06/26/23 15:11 Nasal Cannula 1.5 06/26/23 14:58 Nasal Cannula 06/26/23 11:17 Nasal Cannula 1.5 06/26/23 10:17 Room Air PG Care Time/CCT Total # of Minutes Spent Total Time Spent with Patient: Total time spent is greater than 50% in coordination of care (as documented) at patient's floor/unit and/or counseling patient: Coding Level of Care Code 12638 SUB INP/OBS CARE 2/35MIN Diagnoses Bacteremia R78.81 Pneumonia J18.9 COPD (chronic obstructive pulmonary disease) J44.9 Hyperlipidemia E78.5 Hypertension I10 GERD (gastroesophageal reflux disease) K21.9
[2023-06-26] MEDS: AZITHROMYCIN 500 MG in DEXTROSE 5% 250 ML IV SCH (21:54)
[2023-06-26] MEDS: LOVASTATIN 20 MG TAB PO SCH (21:59)
[2023-06-26] MEDS: ENOXAPARIN INJ 40 MG/0.4 ML SYR SQ SCH (22:01)
[2023-06-27] MEDS: ALBUTEROL HFA 8 GM INHALER INH SCH ×4 (02:02→15:15)
[2023-06-27 05:25] LABS: Hematocrit (blood only) 43.1 % (42.0-52.0); Hemoglobin 15.2 g/dl (14.0-18.0); Mean Corpuscular Hemoglobin 33.2 pg (25.0-34.0); Mean Corpuscular Hgb Conc 35.3 g/dL (32.0-36.0); Mean Corpuscular Volume 94.1 fL (80.0-100.0); Mean Platelet Volume 10.6 fL (9.4-12.4); Platelet Count 287 K/uL (130-400); RDW Standard Deviation 44.8 fL (36.4-46.3); Red Blood Count 4.58 M/uL (4.70-6.10); White Blood Count 15.92 K/ul (4.8-10.8)
[2023-06-27] MEDS: PIPERACILLIN/TAZOBACTAM 4.5 GM in DEXTROSE 5% MINI-B 100 ML IV SCH ×2 (05:36→15:33)
[2023-06-27 05:42] LABS: Calcium 8.8 mg/dl (8.6-10.3)
[2023-06-27 05:48] LABS: BUN Creatinine Ratio 15.9 (10-20); Creatinine Clr Calc Pharmacy 62.1 ml/min; Est GFR (African American) 97.5 ml/min; Est GFR (Non-African American) 84.1 ml/min
[2023-06-27] MEDS: PANTOprazole 40 MG TAB PO SCH (08:53)
[2023-06-27] MEDS: POTASSIUM CHLORIDE CRTAB 20 MEQ TABCR PO SCH (08:53)
[2023-06-27] MEDS: ACETAMINOPHEN 325 MG TAB PO PRN (08:53)
[2023-06-27] MEDS: FLUTICASONE FUROATE 100MCG 14 PUFFS/INHALER INH SCH (08:53)
[2023-06-27] MEDS: UMECLIDINIUM/VILANTEROL 62.5/25MCG 7 PUFFS/INHALER INH SCH (08:54)
[2023-06-27] MEDS: POLYETHYLENE (MIRALAX) 17 GM PACK PO SCH (08:54)
[2023-06-27] MEDS: guaiFENesin 600 MG TABCR PO SCH (08:54)
[2023-06-27] MEDS: MONTELUKAST SODIUM 10 MG TABLET PO SCH (08:54)
[2023-06-27] MEDS: lisinopril 40 MG TAB PO SCH (08:54)
[2023-06-27] MEDS: THEOPHYLLINE 300MG EXTENDED REL TAB PO SCH ×2 (08:55→15:33)
[2023-06-27 11:37] VITALS: TEMP 97.9
[2023-06-27 16:13] VITALS: BP 121/82; RESP 16; O2SAT 90
[2023-06-27] MEDS ORDERED: levoFLOXacin 750 MG TAB PO ONE (17:09)
--- NOTE | 2023-06-27 18:09 | Discharge Summary ---
Date of Service June 27, 2023 Admission HPI Per Admitting Provider Fan Prather is a 77yo incarcerated male with history of COPD presenting with shortness of breath. Patient reports having some mild URI symptoms 3-4 weeks ago which resolved. Over the last 2-3 days he has been having increasing shortness of breath and cough productive for thick, yellow sputum. He denies fever, chills, sweats, chest pain or tightness. No hemoptysis. No abdominal pain, nausea, vomiting or diarrhea. No additional complaints at this time. In the ER patient with elevated temperature of 37.6, tachycardic at 102bpm, blood pressure mildly low (last 97/68) but MAPs maintained over 65. Adequate o xygenation on room air with saturations ranging 88-92%. Patient does not use supplemental O2 at home. ER Course: NSS x 2L Solumedrol 125mg IV Albuterol 3mL neb Ceftriaxone 2gm IV Azithromycin 500mg IV Discharge Exam General-alert and oriented x3, no fevers, no chills HEENT-head atraumatic and normocephalic Neck-no lymphadenopathy or thyromegaly, trachea midline Chest-diminished breath sounds bilaterally. Faint right lower lobe rhonchi. No wheezing Cardiac-regular rate and rhythm, normal S1 and S2 Abdomen-normal bowel sounds, nontender, no hepatosplenomegaly Extremities-no cyanosis, clubbing, or edema Neuro-cranial nerves II through XII intact Psych-normal affect, normal mood Discharge Data Allergies Allergy/AdvReac Type Severity Reaction Status Date / Time No Known Allergies Allergy Verified 06/22/23 21:25 Consultations 06/22/23 21:19 ED Decision to Admit Stat 06/24/23 12:17 Consult Infectious Diseases Routine Ordered Studies 06/22/23 20:07 CT angio chest PE protocol Stat Hospital Course (1) Bacteremia: Gram-negative's isolated. Final identification pending. He remains on intravenous Zosyn, day 5. Infectious disease consultation requested. Repeat blood cultures every 2 days until negative. anticipate discharge on 06/27 if continues to do well (2) Pneumonia: Right lower lobe. Currently on Zosyn, day 5. Nonproductive cough. Will obtain sputum culture if sputum is produced. Serial chest x-rays until resolved. CT as above with RLL infiltrate suggestive of PNA. (3) COPD (chronic obstructive pulmonary disease): Acute exacerbation associated with pneumonia. Currently on nebulizer treatments . Improved. Methylprednisolone discontinued. Continue to treat underlying pneumonia. (4) Hyperlipidemia: Stable. Continue lovastatin (5) Hypertension: Lisinopril has been restarted. (6) GERD (gastroesophageal reflux disease): Stable. Continue Protonix Plan Anticipate eventual return to the [facility] on oral antibiotic. Discharge Plan Discharge Items Patient Disposition: [facility] Reason For Visit: PNEUMONIA,SHORTNESS OF BREATH Discharge Diagnosis: pneumonia Activity: Resume your previous activity Non-emergency contact: Primary Care Provider Call non-emergency contact if: you have any medication questions Follow-up/Referrals: Chester MCCOY [Primary Care Provider] - Daniele Attending Provider Instructions: Can transition to levofloxacin 750 mg PO daily to complete a total 10 day course through 07/01 Pending Studies at Discharge: Yes Stand-Alone Forms: My [facility] Skilled Items Patient informed of condition?: Yes Discharge Level of Care: Other Communicable Disease: No Discharge Prognosis: Stable Lines: None Urinary Catheter: No Medications and DC Order Prescriptions: New levofloxacin 750 mg tablet 750 mg PO 1800 4 Days Qty: 4 0RF Continued theophylline 300 mg Tablet Extended Release 12 Hr 300 mg PO TID pantoprazole 40 mg Tablet,Delayed Release (Dr/Ec) 40 mg PO QAM montelukast 10 mg Tablet 10 mg PO QAM lovastatin 20 mg Tablet 20 mg PO PM lisinopril 40 mg Tablet 40 mg PO QAM albuterol sulfate 90 mcg/actuation Hfa Aerosol Inhaler 2 puff INHALATION QID PRN (Reason: Shortness Of Breath) Ocuvite with Lutein 300 mcg-200 mg-27 mg-2 mg Tablet 1 tab PO DAILY Rx Instructions: administer after a meal Trelegy Ellipta 100-62.5-25 mcg Blister With Device 1 inh INHALATION DAILY Discontinued hydrochlorothiazide 12.5 mg Tablet 12.5 mg PO DAILY Discharge Orders: Discharge Order (Routine); Ordered 06/27/23 Ordered By: Jose Perez Admission Data Admit Date/Time: 06/22/23 22:01 Attending Provider: Jose Perez Admit Provider: Claudia Sanchez Primary Care Provider: Chester MCCOY Other Providers: Claudia Sanchez; Shreya Gary; Palomo Fermin; Angelika De Leon; Boston Dumont; Livier De Luna; Cait Lopez; Rehana tSewart; Yonas Parekh; Norma Mitchell; Chikis Marcial Coding Diagnoses Bacteremia R78.81 Pneumonia J18.9 COPD (chronic obstructive pulmonary disease) J44.9 Hyperlipidemia E78.5 Hypertension I10 GERD (gastroesophageal reflux disease) K21.9
[2023-06-27 18:47] VITALS: PULSE 92
== END 2023-06-27 18:47 | DRG 871 ==
LOC: ED 19:05 → SUATTDRO 22:01 → EDINP 22:39 → 2W 22:45
DX: J44.0 Chronic obstructive pulmonary disease with (acute) lower respiratory infection; Z87.891 Personal history of nicotine dependence; J44.1 Chronic obstructive pulmonary disease with (acute) exacerbation; I10 Essential (primary) hypertension; E78.5 Hyperlipidemia, unspecified; R78.81 Bacteremia; B96.89 Other specified bacterial agents as the cause of diseases classified elsewhere; R79.89 Other specified abnormal findings of blood chemistry; J18.9 Pneumonia, unspecified organism; K21.9 Gastro-esophageal reflux disease without esophagitis

== ENCOUNTER 2024-03-22 00:38 | Inpatient (IN) ==
--- NOTE | 2024-03-22 02:12 | Emergency Department Note ---
Impression & Plan ANTHONY (acute kidney injury), COPD (chronic obstructive pulmonary disease), Elevated troponin, Weakness, Tachycardia ED Provider Note CHIEF COMPLAINT: Weakness, high heart rate HISTORY OF PRESENTING ILLNESS: This 78-year-old male patient presents emergency department from [facility] along with correctional officers for evaluation of weakness, hypotension, and A-fib with RVR. The patient has been feeling weak over the last few days. Tonight he was found to be in A-fib RVR with rates from 130 to 160s. The patient was also hypotensive into the 70s. The patient denies chest pain, but has been having some shortness of breath with the symptoms. However, he states that the SOB is similar to his baseline COPD. He has had some vomiting over the past 2 days, but no abdominal pain. Denies pain or swelling in his legs. He states that he normally has a headache with no recent changes. He has been coughing, but states that he thinks it is his baseline cough. No fevers. No other URI symptoms. He states that he tends to have a rapid heart rate at times. REVIEW OF SYSTEMS: See HPI for pertinent positives and pertinent negatives. ALLERGIES: NKDA MEDICATIONS: See below PAST MEDICAL HISTORY: See below PHYSICAL EXAM: VITALS: Vitals are noted on the nurse's note and reviewed by myself. GENERAL: The patient appears thin, frail, and chronically ill in appearance. However, he appears non toxic, no acute distress, non-diaphoretic. SKIN: Capillary refill <2 sec. EYES: PERRLA. EOMI. Conjunctivae without injection, sclerae without icterus. NOSE: Patent without discharge. MOUTH: Mucous membranes moist. Uvula midline. Airway patent. NECK: Supple without nuchal rigidity. HEART: Regular rate and rhythm without murmurs gallops or rubs. LUNGS: Clear to auscultation bilaterally without wheezes, rales or rhonchi. No retractions or accessory muscle use. ABDOMEN: Positive bowel sounds x 4. Normal tympanic percussion. Soft, nontender. No masses or organomegaly. Genao sign negative. No guarding or rebound tenderness. No focal RLQ or LLQ tenderness. MUSCULOSKELETAL: Bilateral lower extremities without edema. NEURO: Patient was alert and oriented. DIFFERENTIAL DIAGNOSIS: Differential diagnosis includes A-fib with RVR, ID, PE, pneumonia, sepsis, electrolyte abnormality, acute kidney injury, UTI, dehydration, acute intracranial abnormality, acute intra-abdominal abnormality, infectious etiology, or others. ED COURSE AND MEDICAL DECISION MAKING: MEDICATIONS GIVEN: A total of 1 L normal saline solution bolus. MONITOR: Continuous traffic monitor specialist: Order was placed for continuous traffic monitor specialist. Patient was placed on the traffic monitor specialist and continuous pulse ox. Patient was noted to be in sinus tachycardia at an initial rate of 112 bpm per my interpretation. EKG: EKG was interpreted by myself as sinus tachycardia at 122 bpm with no acute ST or T wave changes. Premature supraventricular complexes are present. INTERPRETATION OF LABS: I interpreted the labs with full lab results as below in the lab section of this note. Pertinent lab results discussed in the MDM section below. INTERPRETATION OF IMAGING: Chest x-ray was interpreted by myself as emphysematous changes without acute cardiopulmonary etiology. Radiology report is still pending. EXTERNAL RECORDS REVIEWED: Records were reviewed from [facility] CHRONIC MEDICAL/SOCIAL CONDITIONS AFFECTING CARE: Incarceration, COPD CONSULTATIONS: On-call hospitalist MDM SUMMARY: The patient was seen during a time of extreme volume and extreme acuity. Nursing triage protocols were initiated with IV lock, labs, and/or imaging studies conducted by protocol in the triage area. The patient was examined by myself once they were taken back to an exam room. The patient presents to the emergency department for evaluation of weakness, hypotension, and elevated heart rate. Per the residential, the patient was found to be in A-fib with RVR with a heart rate up to 160 and was hypotensive into the 70s per report. The patient currently denies any symptoms other than weakness and his baseline shortness of breath from his COPD. However, he states that he did have some vomiting over the past 2 days. He is not having any abdominal pain. The patient was initially given 500 mL normal saline solution bolus, but was given a second 500 mL normal saline solution bolus after the results of the labs were received. The patient declined any medication for pain or other symptoms while in the emergency department. Chest x-ray per my interpretation showed emphysematous changes, but no acute cardiopulmonary etiology. Radiology report is still pending. EKG per my interpretation showed sinus tachycardia without A- fib. The patient's heart rate ranged between 100 and the 120s while in the emergency department. The patient was not hypotensive in the emergency department. White blood cell count elevated at 16.76, but the patient has had elevated white blood cell counts in the past. Hemoglobin normal at 14.5. Platelet count normal at 231. INR 1.2 and PT 12.6. aPTT normal at 29. Potassium low at 3.3, carbon dioxide 20, anion gap of 20, creatinine 3.68, BUN 38, and glucose of 208. The patient's BUN and creatinine were normal on labs from 06/27/2023. Lipase was normal. Lactate was normal. High-sensitivity troponin initially 41.9 with repeat of 46.1. Urinalysis with 1+ ketones and trace blood, but no evidence for UTI. Respiratory bio fire was negative. I had a meaningful discussion about this patient with Dr. Gonzalez who agrees with my assessment and the treatment plan. The patient appears to have an acute kidney injury which is likely the cause of his weakness and tachycardia. The patient's elevated troponin is likely secondary to demand ischemia from the acute kidney injury. The patient will require admission for further evaluation and treatment. I spoke with the on-call hospitalist who agreed to admit the patient for further management. Please refer to their dictation for further details. The patient's care was transferred in stable condition. DIAGNOSIS: Acute kidney injury Weakness Tachycardia Elevated troponin Past Med/Surg History Problem List (Updated 03/22/24 @ 08:41 by Tana Jones PA-C) Tachycardia (Acute) Hyperglycemia Weakness (Acute) ANTHONY (acute kidney injury) (Acute) Gram-negative bacteremia Elevated troponin (Acute) Leukocytosis (Acute) Pneumonia (Acute) COPD (chronic obstructive pulmonary disease) (Acute) Sepsis (Acute) Pneumonia Acute upper GI hemorrhage Hemorrhagic shock Hypotension Medical History (Updated 03/22/24 @ 08:41 by Tana Jones PA-C) GERD (gastroesophageal reflux disease) Hyperlipidemia Hypertension COPD (chronic obstructive pulmonary disease) Aortic aneurysm UNSPECIFIED PER MEDICAL RECORD Surgical History History of cataract surgery RT H/O aortic aneurysm repair Social History Smoking Status: Former smoker Tobacco Type: Cigarettes Cigarettes Per Day: SMOKED 1 PPD X 60 YRS; Hx Alcohol Use: No Hx Substance Use: No Preferred Language: Mongolian Communication Ability: Effective Anchorer Required: No Beliefs That Will Affect Care: None Current Living Situation: Other Current Living Situation Comment: residential Feels Safe at Home: Yes Assistive Devices: Glasses and Walker Allergies Allergies Allergy/AdvReac Type Severity Reaction Status Date / Time No Known Allergies Allergy Verified 03/22/24 02:16 Home Meds Home Medications Medication Instructions Recorded Confirmed lovastatin 20 mg tablet 20 mg PO PM 04/08/19 03/22/24 montelukast 10 mg tablet 10 mg PO QAM 04/08/19 03/22/24 pantoprazole 40 mg tablet,delayed 40 mg PO QAM 04/08/19 03/22/24 release theophylline 300 mg 300 mg PO TID 04/08/19 03/22/24 tablet,extended release,12 hr albuterol sulfate 90 mcg/actuation 2 puff inhalation QID PRN 06/22/23 03/22/24 aerosol inhaler Shortness Of Breath fluticasone fur. 100 mcg-umeclid 1 inh inhalation DAILY PRN 06/22/23 03/22/24 62.5 mcg-vilant 25 mcg Shortness Of Breath Or Wheezing inhalat.powder (Trelegy Ellipta) vit A 300 mcg-C 200 mg-E 27 1 tab PO DAILY 06/22/23 03/22/24 mg-lutein 2 mg and minerals tablet (Ocuvite with Lutein) hydrochlorothiazide 25 mg tablet 25 mg PO QAM 03/22/24 03/22/24 levofloxacin 750 mg tablet 750 mg PO DAILY 03/22/24 03/22/24 lisinopril 20 mg tablet 20 mg PO QAM 03/22/24 03/22/24 nystatin 100,000 unit/mL oral 0 ml mucous membrane QID 03/22/24 03/22/24 suspension Results & Data (ED) Vital Signs Vital Signs - 24 hr 03/22/24 00:49 03/22/24 00:54 03/22/24 02:24 Temperature 36.8 C Temperature Source Oral Pulse Rate 111 H 108 H 115 H Pulse Rate [Apical] Pulse Rate from SpO2 Sensor Pulse Rhythm Irregular Regular Pulse Rhythm [Apical] Respiratory Rate 18 18 Respiratory Effort / Characteristics Non-Labored Respiratory Depth Normal Respiratory Pattern Regular Blood Pressure 110/72 Blood Pressure [Right Arm] Blood Pressure Mean 84 Blood Pressure Mean [Right Arm] Pulse Oximetry 97 94 Oxygen Delivery Method Nasal Cannula Room Air Oxygen Flow Rate 2 Sepsis Recent Fever Within 48 Hours No Sepsis New/Unexplained Change in Mental Status N/A Sepsis Action Taken by Nursing No Action Required 03/22/24 02:35 03/22/24 04:00 03/22/24 04:32 Temperature Temperature Source Pulse Rate 115 H 115 H Pulse Rate [Apical] 113 H Pulse Rate from SpO2 Sensor Pulse Rhythm Pulse Rhythm [Apical] Regular Respiratory Rate 18 28 H Respiratory Effort / Characteristics Non-Labored Respiratory Depth Normal Respiratory Pattern Blood Pressure 128/84 Blood Pressure [Right Arm] 119/79 Blood Pressure Mean 93 Blood Pressure Mean [Right Arm] 92 Pulse Oximetry 98 93 Oxygen Delivery Method Room Air Nasal Cannula Oxygen Flow Rate 2 Sepsis Recent Fever Within 48 Hours Sepsis New/Unexplained Change in Mental Status Sepsis Action Taken by Nursing 03/22/24 05:00 Temperature Temperature Source Pulse Rate 123 H Pulse Rate [Apical] Pulse Rate from SpO2 Sensor 121 H Pulse Rhythm Pulse Rhythm [Apical] Respiratory Rate 30 H Respiratory Effort / Characteristics Respiratory Depth Respiratory Pattern Blood Pressure 131/98 Blood Pressure [Right Arm] Blood Pressure Mean 109 Blood Pressure Mean [Right Arm] Pulse Oximetry 93 Oxygen Delivery Method Oxygen Flow Rate Sepsis Recent Fever Within 48 Hours Sepsis New/Unexplained Change in Mental Status Sepsis Action Taken by Nursing Laboratory Data 03/22/24 00:45 03/22/24 00:45 Lab Results 03/22/24 03/22/24 Range/Units 00:45 04:03 WBC 16.76 H (4.8-10.8) K/ul RBC 4.57 L (4.70-6.10) M/uL Hgb 14.5 (14.0-18.0) g/dl Hct 43.6 (42.0-52.0) % MCV 95.4 (80.0-100.0) fL MCH 31.7 (25.0-34.0) pg MCHC 33.3 (32.0-36.0) g/dL RDW Std Deviation 43.5 (36.4-46.3) fL RDW Coeff of Yoandy 12.4 (11.5-14.5) % Plt Count 231 (130-400) K/uL MPV 11.5 (9.4-12.4) fL Immature Gran % (Auto) 0.6 % Neut % (Auto) 91.0 % Lymph % (Auto) 4.1 % [place] % (Auto) 4.1 % Eos % (Auto) 0.0 % Baso % (Auto) 0.2 % Neut # (Auto) 15.25 H (1.40-6.50) K/uL Lymph # (Auto) 0.69 L (1.20-3.40) K/uL [place] # (Auto) 0.69 H (0.11-0.59) K/uL Eos # (Auto) 0.00 (0.00-0.50) K/uL Baso # (Auto) 0.03 (0.00-0.20) K/uL Immature Gran # (Auto) 0.10 (0.01-0.20) K/uL PT Cancelled 12.6 H INR Cancelled 1.2 H APTT Cancelled 29 PTT Ratio Cancelled 1.1 Sodium 140 (136-145) mmol/L Potassium 3.3 L (3.5-5.1) mmol/L Chloride 100 (98-107) mmol/L Carbon Dioxide 20 L (21-32) mmol/L Anion Gap 20 H (3-11) BUN 38 H (6-23) mg/dl Creatinine 3.68 H (0.6-1.4) mg/dl Est Cr Clr Drug Dosing 13.5 ml/min Est GFR ( Amer) 17.0 ml/min Est GFR (Non-Af Amer) 14.6 ml/min BUN/Creatinine Ratio 10.3 (10-20) Glucose 208 H (70-99(Fasting)) mg/dl Lactate 1.9 (0.4-2.0) mmol/L Calcium 9.3 (8.6-10.3) mg/dl Total Bilirubin 0.6 (0.2-1.0) mg/dl AST 18 (13-39) U/L ALT 7 (7-52) U/L Alkaline Phosphatase 56 (34-104) U/L Troponin I High Sens 41.9 H 46.1 H (0-20) pg/ml Total Protein 7.1 (6.0-8.3) gm/dl Albumin 4.2 (3.4-5.0) gm/dl Globulin 2.9 (2.5-4.0) gm/dl Albumin/Globulin Ratio 1.4 (0.9-2) Lipase 3 L (11-82) U/L Administered Medications Albuterol (Albut/Ipratrop 3mg/0.5mg Neb 3 Ml Vial) 3 ml NEB Q4R SPRING; Protocol Stop: 04/21/24 07:32 Last Admin: 03/22/24 08:06 Dose: 3 ml Documented By: JREBA Discontinued Medications Albuterol (Albut/Ipratrop 3mg/0.5mg Neb 3 Ml Vial) 3 ml NEB NOW STA; Protocol Stop: 03/22/24 06:24 Last Admin: 03/22/24 06:36 Dose: 3 ml Documented By: BLOSSOM Sodium Chloride (Nss) 500 mls @ 999 mls/hr IV .Q31M STA Stop: 03/22/24 02:54 Last Infusion: 03/22/24 03:58 Dose: Infused Documented By: Admin: 03/22/24 03:06 Dose: 999 mls/hr Documented By: REBECCA Sodium Chloride (Nss) 500 mls @ 999 mls/hr IV .Q31M ONE Stop: 03/22/24 04:51 Last Infusion: 03/22/24 06:37 Dose: Infused Documented By: Admin: 03/22/24 05:00 Dose: 999 mls/hr Documented By: BLOSSOM Discharge Plan Visit Data Chief Complaint: Weakness Stated Complaint: Afib RVR, Hypotension, Weakness ED Provider: Ghada Gonzalez ED Midlevel Provider: Tana Jones Discharge Problem: ANTHONY (acute kidney injury), COPD (chronic obstructive pulmonary disease), Elevated troponin, Weakness, Tachycardia Patient Disposition: Admitted As Inpatient Condition: Fair Discharge Instructions Interventions: ED Discharge Assessment Last Done: 03/22/24 07:34
[2024-03-22 03:06] LABS: Albumin Globulin Ratio 1.4 (0.9-2); Albumin Level 4.2 gm/dl (3.4-5.0); BUN Creatinine Ratio 10.3 (10-20); Bilirubin,Total 0.6 mg/dl (0.2-1.0); Calcium 9.3 mg/dl (8.6-10.3); Creatinine Clr Calc Pharmacy 13.5 ml/min; Est GFR (Non-African American) 14.6 ml/min; Globulin 2.9 gm/dl (2.5-4.0); Potassium 3.3 mmol/L (3.5-5.1); Total Protein 7.1 gm/dl (6.0-8.3)
[2024-03-22] MEDS: SODIUM CHLORIDE 0.9% 500 ML IV STA (03:06)
[2024-03-22 03:12] LABS: Hematocrit (blood only) 43.6 % (42.0-52.0); Hemoglobin 14.5 g/dl (14.0-18.0); Mean Corpuscular Hemoglobin 31.7 pg (25.0-34.0); Mean Corpuscular Hgb Conc 33.3 g/dL (32.0-36.0); Mean Corpuscular Volume 95.4 fL (80.0-100.0); Mean Platelet Volume 11.5 fL (9.4-12.4); Platelet Count 231 K/uL (130-400); RDW Coefficient of Variation 12.4 % (11.5-14.5); RDW Standard Deviation 43.5 fL (36.4-46.3); Red Blood Count 4.57 M/uL (4.70-6.10); Troponin I High Sensitivity 41.9 pg/ml (0-20); White Blood Count 16.76 K/ul (4.8-10.8)
[2024-03-22 03:29] LABS: Basophils # (auto) 0.03 K/uL (0.00-0.20); Basophils % (auto) 0.2 %; Immature Granulocytes % (auto) 0.6 %; Lymphocytes # (auto) 0.69 K/uL (1.20-3.40); Lymphocytes % (auto) 4.1 %; Monocytes # (auto) 0.69 K/uL (0.11-0.59); Monocytes % (auto) 4.1 %; Neutrophils # (auto) 15.25 K/uL (1.40-6.50)
[2024-03-22 03:41] LABS: Adenovirus PCR Not Detected (NotDetected); Bordetella parapertussis PCR Not Detected (NotDetected); Bordetella pertussis PCR Not Detected (NotDetected); Chlamydia pneumoniae PCR Not Detected (NotDetected); Coronavirus 229E PCR Not Detected (NotDetected); Coronavirus CoV-2 (COVID19)PCR Not Detected (NotDetected); Coronavirus HKU1 PCR Not Detected (NotDetected); Coronavirus NL63 PCR Not Detected (NotDetected); Coronavirus OC43PCR Not Detected (NotDetected); Human Metapneumovirus PCR Not Detected (NotDetected); Influenza A PCR Not Detected (NotDetected); Influenza B PCR Not Detected (NotDetected); Mycoplasma pneumoniae PCR Not Detected (NotDetected); Parainfluenza Virus 1 PCR Not Detected (NotDetected); Parainfluenza Virus 2 PCR Not Detected (NotDetected); Parainfluenza Virus 3 PCR Not Detected (NotDetected); Parainfluenza Virus 4 PCR Not Detected (NotDetected); Respiratory Syncytial VirusPCR Not Detected (NotDetected); Rhinovirus/Enterovirus PCR Not Detected (NotDetected)
[2024-03-22 04:50] LABS: INR 1.2 (0.9-1.1); Partial Thromboplastin Ratio 1.1; Partial Thromboplastin Time 29 Seconds (21-31); Prothrombin Time 12.6 Seconds (9.0-12.0)
[2024-03-22] MEDS: SODIUM CHLORIDE 0.9% 500 ML IV ONE (05:00)
--- NOTE | 2024-03-22 05:25 | History & Physical Report ---
Date of Service March 22, 2024 Assessment & Plan (1) ANTHONY (acute kidney injury): Plan: Elevation of BUN=38 and Cr=3.68. Increased from 13 and 0.82, respectively, on 06/27/23. Suspect obstructive uropathy. Bladder scan performed in the ER with 868mL urine present in the bladder. Montanez catheter ordered. Patient with anion gap of 20. HCO3 low at 20. K is mildly low at 3.3. -Admit to medical with telemetry -Maintain Montanez catheter -Monitor strict I/Os -BMP q 12 hours to monitor renal function and electrolytes -IVF with LR at 125mL/hr x 2L ordered -Check Mg and PO4 and replete as needed -Hold HCTZ and Lisinopril -Avoid nephrotoxic agents (2) Weakness: Plan: Likely secondary to ANTHONY in setting of obstructive uropathy. Also with leukocytosis - WBC=16.76, worsening SOB and sputum -Check TSH -Manage ANTHONY as above -Empiric Zosyn (3) Elevated troponin: Plan: Patient denies chest pain. Troponin elevated at 46.1. No acute changes on EKG. Suspect demand ischemia in setting of reported hypotension + decreased clearance secondary to ANTHONY -Telemetry monitoring -Trend troponin to peak. (4) Hyperglycemia: Plan: Elevated glucose at 208. Patient with no documented history of DM. -Check HgbA1C -BSG checks qACHS with ISS coverage as needed -Goal blood sugar 110 - 140 Plan COPD - patient reports some worsening shortness of breath -Continue Albuterol, Trelegy -Continue Theophylline - check level -Continue Singulair History of Present Illness Chief Complaint: generalized weakness Primary Care Provider: [facility] Fan Prather is an 78yo male with history of COPD, HTN, HOP presenting from [facility] with complaint of generalized weakness, chills and shortness of breath. Patient reports not feeling well for the last several days. He has had a poor appetite with decreased oral intake. He has had nausea with several episodes of vomiting, chills, generalized weakness, shortness of breath, cough productive for clear sputum as well as rapid heart rate. He has been having a difficult time urinating over the last several days as well. He reports that he feels like he needs to pee but sometimes cannot do it. He denies chest pain, abdominal pain, diarrhea. Per outside records - patient has been having rapid heart rate of 130-160 prior to arrival In the ER he is afebrile, tachycardic - appears to be ST on monitor, HR of 115bpm Bladder scan performed with 868mL present ER Course: NSS x 1L Montanez ordered Allergies Allergy/AdvReac Type Severity Reaction Status Date / Time No Known Allergies Allergy Verified 03/22/24 02:16 Home Medications Medication Instructions Recorded Confirmed Type lovastatin 20 mg tablet 20 mg PO PM 04/08/19 03/22/24 History montelukast 10 mg tablet 10 mg PO QAM 04/08/19 03/22/24 History pantoprazole 40 mg tablet,delayed 40 mg PO QAM 04/08/19 03/22/24 History release theophylline 300 mg 300 mg PO TID 04/08/19 03/22/24 History tablet,extended release,12 hr albuterol sulfate 90 mcg/actuation 2 puff inhalation QID PRN 06/22/23 03/22/24 History aerosol inhaler Shortness Of Breath fluticasone fur. 100 mcg-umeclid 1 inh inhalation DAILY PRN 06/22/23 03/22/24 History 62.5 mcg-vilant 25 mcg Shortness Of Breath Or Wheezing inhalat.powder (Trelegy Ellipta) vit A 300 mcg-C 200 mg-E 27 1 tab PO DAILY 06/22/23 03/22/24 History mg-lutein 2 mg and minerals tablet (Ocuvite with Lutein) hydrochlorothiazide 25 mg tablet 25 mg PO QAM 03/22/24 03/22/24 History levofloxacin 750 mg tablet 750 mg PO DAILY 03/22/24 03/22/24 History lisinopril 20 mg tablet 20 mg PO QAM 03/22/24 03/22/24 History nystatin 100,000 unit/mL oral 0 ml mucous membrane QID 03/22/24 03/22/24 History suspension Past Med/Surg History Problem List (Updated 03/22/24 @ 05:34 by Claudia Sanchez DO) Hyperglycemia Weakness ANTHONY (acute kidney injury) Gram-negative bacteremia Elevated troponin (Acute) Leukocytosis (Acute) Pneumonia (Acute) COPD (chronic obstructive pulmonary disease) (Acute) Sepsis (Acute) Pneumonia Acute upper GI hemorrhage Hemorrhagic shock Hypotension Medical History (Updated 03/22/24 @ 05:34 by Claudia Sanchez DO) GERD (gastroesophageal reflux disease) Hyperlipidemia Hypertension COPD (chronic obstructive pulmonary disease) Aortic aneurysm UNSPECIFIED PER MEDICAL RECORD Surgical History History of cataract surgery RT H/O aortic aneurysm repair Social History Smoking Status: Former smoker Tobacco Type: Cigarettes Cigarettes Per Day: SMOKED 1 PPD X 60 YRS; Hx Alcohol Use: No Hx Substance Use: No Preferred Language: Tunisian Communication Ability: Effective Plating Stripper Required: No Beliefs That Will Affect Care: None Current Living Situation: Other Current Living Situation Comment: long term Feels Safe at Home: Yes Assistive Devices: Glasses and Walker Review of Systems Review of Systems: All systems reviewed & are unremarkable except as noted in HPI & below Physical Exam Physical Exam: General: patient resting comfortably, NAD, non-toxic in appearance, AA&O x 4 Skin: warm, dry, intact, no rashes or lesions HEENT: NC/AT, PERRL, EOMI, anicteric sclera, conjunctiva without injection, external ear normal to inspection and nontender, nares patent, DRY mucus membranes, dentition intact, no oropharyngeal lesions, neck supple, trachea midline, no LAD, no thyromegaly, no JVD Heart: +S1/S2, regular, tachycardic, no m/r/g Lungs: equal air entry bilaterally, no rales/rhonchi/wheezes Abd: +BS, soft, mild suprapubic tenderness and fullness to palpation, no masses/organomegaly/ascites Ext: warm, 2+ pulses in UE/LE bilaterally, no clubbing/cyanosis or edema Neuro: nonfocal, patient AA&O x 4, speech intact, no facial droop, moving all extremities on command with equal strength 5/5 Results & Data Results & Data Vital Signs (Past 12 Hours) Vital Signs Temp Pulse Pulse Resp BP BP Pulse Ox 03/22/24 04:32 115 H 03/22/24 02:35 113 H 18 119/79 98 03/22/24 02:24 115 H 18 94 03/22/24 00:54 108 H 03/22/24 00:49 36.8 C 111 H 18 110/72 97 O2 Del Method O2 Flow Rate 03/22/24 04:32 03/22/24 02:35 Room Air 03/22/24 02:24 Room Air 03/22/24 00:54 03/22/24 00:49 Nasal Cannula 2 Laboratory Results Laboratory Results WBC 16.76 K/ul (4.8-10.8) H 03/22/24 00:45 RBC 4.57 M/uL (4.70-6.10) L 03/22/24 00:45 Hgb 14.5 g/dl (14.0-18.0) 03/22/24 00:45 Hct 43.6 % (42.0-52.0) 03/22/24 00:45 MCV 95.4 fL (80.0-100.0) 03/22/24 00:45 MCH 31.7 pg (25.0-34.0) 03/22/24 00:45 MCHC 33.3 g/dL (32.0-36.0) 03/22/24 00:45 RDW Std Deviation 43.5 fL (36.4-46.3) 03/22/24 00:45 RDW Coeff of Yoandy 12.4 % (11.5-14.5) 03/22/24 00:45 Plt Count 231 K/uL (130-400) 03/22/24 00:45 MPV 11.5 fL (9.4-12.4) 03/22/24 00:45 Immature Gran % (Auto) 0.6 % 03/22/24 00:45 Neut % (Auto) 91.0 % 03/22/24 00:45 Lymph % (Auto) 4.1 % 03/22/24 00:45 [place] % (Auto) 4.1 % 03/22/24 00:45 Eos % (Auto) 0.0 % 03/22/24 00:45 Baso % (Auto) 0.2 % 03/22/24 00:45 Neut # (Auto) 15.25 K/uL (1.40-6.50) H 03/22/24 00:45 Lymph # (Auto) 0.69 K/uL (1.20-3.40) L 03/22/24 00:45 [place] # (Auto) 0.69 K/uL (0.11-0.59) H 03/22/24 00:45 Eos # (Auto) 0.00 K/uL (0.00-0.50) 03/22/24 00:45 Baso # (Auto) 0.03 K/uL (0.00-0.20) 03/22/24 00:45 Immature Gran # (Auto) 0.10 K/uL (0.01-0.20) 03/22/24 00:45 PT 12.6 Seconds (9.0-12.0) H 03/22/24 04:03 INR 1.2 (0.9-1.1) H 03/22/24 04:03 APTT 29 Seconds (21-31) 03/22/24 04:03 PTT Ratio 1.1 03/22/24 04:03 Sodium 140 mmol/L (136-145) 03/22/24 00:45 Potassium 3.3 mmol/L (3.5-5.1) L 03/22/24 00:45 Chloride 100 mmol/L (98-107) 03/22/24 00:45 Carbon Dioxide 20 mmol/L (21-32) L 03/22/24 00:45 Anion Gap 20 (3-11) H 03/22/24 00:45 BUN 38 mg/dl (6-23) H 03/22/24 00:45 Creatinine 3.68 mg/dl (0.6-1.4) H 03/22/24 00:45 Est Cr Clr Drug Dosing 13.5 ml/min 03/22/24 00:45 Est GFR ( Amer) 17.0 ml/min 03/22/24 00:45 Est GFR (Non-Af Amer) 14.6 ml/min 03/22/24 00:45 BUN/Creatinine Ratio 10.3 (10-20) 03/22/24 00:45 Glucose 208 mg/dl (70-99(Fasting)) H 03/22/24 00:45 Lactate 1.9 mmol/L (0.4-2.0) 03/22/24 04:03 Calcium 9.3 mg/dl (8.6-10.3) 03/22/24 00:45 Total Bilirubin 0.6 mg/dl (0.2-1.0) 03/22/24 00:45 AST 18 U/L (13-39) 03/22/24 00:45 ALT 7 U/L (7-52) 03/22/24 00:45 Alkaline Phosphatase 56 U/L (34-104) 03/22/24 00:45 Troponin I High Sens 46.1 pg/ml (0-20) H 03/22/24 04:03 Total Protein 7.1 gm/dl (6.0-8.3) 03/22/24 00:45 Albumin 4.2 gm/dl (3.4-5.0) 03/22/24 00:45 Globulin 2.9 gm/dl (2.5-4.0) 03/22/24 00:45 Albumin/Globulin Ratio 1.4 (0.9-2) 03/22/24 00:45 Lipase 3 U/L (11-82) L 03/22/24 00:45 Adenovirus (PCR) Not Detected (NotDetected) 03/22/24 Unknown B. pertussis DNA (PCR) Not Detected (NotDetected) 03/22/24 Unknown B.parapertussis DNA PCR Not Detected (NotDetected) 03/22/24 Unknown C. pneumoniae DNA (PCR) Not Detected (NotDetected) 03/22/24 Unknown Coronavirus OC43 (PCR) Not Detected (NotDetected) 03/22/24 Unknown Coronavirus HKU1 (PCR) Not Detected (NotDetected) 03/22/24 Unknown Coronavirus 229E (PCR) Not Detected (NotDetected) 03/22/24 Unknown SARS-CoV-2 (PCR) Not Detected (NotDetected) 03/22/24 Unknown Coronavirus NL63 (PCR) Not Detected (NotDetected) 03/22/24 Unknown Human Metapneumovir PCR Not Detected (NotDetected) 03/22/24 Unknown Influenza Type A (PCR) Not Detected (NotDetected) 03/22/24 Unknown Influenza Type B (PCR) Not Detected (NotDetected) 03/22/24 Unknown M. pneumoniae (PCR) Not Detected (NotDetected) 03/22/24 Unknown Parainfluenza 1 (PCR) Not Detected (NotDetected) 03/22/24 Unknown Parainfluenza 2 (PCR) Not Detected (NotDetected) 03/22/24 Unknown Parainfluenza 3 (PCR) Not Detected (NotDetected) 03/22/24 Unknown Parainfluenza 4 (PCR) Not Detected (NotDetected) 03/22/24 Unknown RSV (PCR) Not Detected (NotDetected) 03/22/24 Unknown Entero/Rhino (PCR) Not Detected (NotDetected) 03/22/24 Unknown Diagnostic Findings CXR - per my interpretation - appear to have some chronic changes, hyperinflation, no obvious infiltrate, edema or pneumothorax ECG Additional Comments: EKG per my interpretation reveals ST at 108bpm, normal axis, NE=403, QRS=92, GWn=413, no acute ischemic changes PG Care Time/CCT Total # of Minutes Spent Total Time Spent with Patient: Total time spent is greater than 50% in coordination of care (as documented) at patient's floor/unit and/or counseling patient: Coding Level of Care Code 64829 INT INP/OBS CARE MIN Diagnoses ANTHONY (acute kidney injury) N17.9 Weakness R53.1 Elevated troponin R79.89 Hyperglycemia R73.9
[2024-03-22 06:26] LABS: Appearance Urine Clear (Clear); Bacteria Urine Automated None Seen (None Seen); Bilirubin Urine Negative (Negative); Blood Urine Trace (Negative); Cast Urine Automated 0-2 /lpf (0-2); Color Urine Yellow; Epithelial Cell Urine Auto 0-2 /hpf (0-2); Glucose Urine UA Negative (Negative); Ketones Urine 1+ (Negative); Leukocyte Esterase Urine Negative (Negative); Nitrite Urine Negative (Negative); Protein Urine Trace (Negative); RBC Urine Automated 0-2 /hpf (0-2); Specific Gravity Urine 1.009 (1.000-1.030); Urobilinogen Urine Negative (Negative); WBC Urine Automated 0-5 /hpf (0-5)
[2024-03-22] MEDS: ALBUT/IPRATROP 3MG/0.5MG NEB 3 ML VIAL NEB STA (06:36)
--- NOTE | 2024-03-22 06:44 | Electrocardiogram Report ---
Test Reason : Blood Pressure : / mmHG Vent. Rate : 108 BPM Atrial Rate : 108 BPM P-R Int : 170 ms QRS Dur : 092 ms QT Int : 360 ms P-R-T Axes : 084 086 071 degrees QTc Int : 482 ms Sinus tachycardia Possible Lateral infarct , age undetermined Possible Inferior infarct , age undetermined Abnormal ECG When compared with ECG of 23-JUN-2023 00:26, No significant change was found Confirmed by Herbert Juarez ([id number]) on 03/22/2024 6:44:18 AM Referred By: [facility] Confirmed By:Tico Juarez
--- NOTE | 2024-03-22 06:45 | Electrocardiogram Report ---
Test Reason : Blood Pressure : / mmHG Vent. Rate : 122 BPM Atrial Rate : 122 BPM P-R Int : 140 ms QRS Dur : 088 ms QT Int : 338 ms P-R-T Axes : 083 088 059 degrees QTc Int : 481 ms Sinus tachycardia with Premature supraventricular complexes possible old inferior [place] Abnormal ECG When compared with ECG of 22-MAR-2024 01:01, (unconfirmed) Premature supraventricular complexes are now Present Confirmed by Herbert Juarez ([id number]) on 03/22/2024 6:44:39 AM Referred By: [facility] Confirmed By:Tico uJarez
[2024-03-22] MEDS ORDERED: CARBOHYDRATES FOR HYPOGLYCEMIA PO PRN (07:33)
[2024-03-22] MEDS ORDERED: GLUCOSE 40% GEL 15 GM TUBE PO PRN (07:33)
[2024-03-22] MEDS ORDERED: DEXTROSE 50% 50 ML SYRINGE IV PRN (07:33)
[2024-03-22] MEDS ORDERED: ACETAMINOPHEN 325 MG TAB PO PRN (07:33)
[2024-03-22] MEDS ORDERED: GLUCAGON FOR INJ 1 MG VIAL SQ PRN (07:33)
[2024-03-22] MEDS ORDERED: GLUCOSE 10 TAB/TUBE PO PRN (07:33)
[2024-03-22] MEDS ORDERED: ONDANSETRON INJ 2 MG/ML 2 ML VIAL IV PRN (07:33)
[2024-03-22] MEDS ORDERED: NON-FORMULARY MEDICATION (Fluticasone-Umeclidin-Vilanter [Trelegy Ellipta] 100-62.5-25 mcg INH PRN (07:33)
[2024-03-22] MEDS: ALBUT/IPRATROP 3MG/0.5MG NEB 3 ML VIAL NEB SCH (08:06)
[2024-03-22 08:21] LABS: Magnesium 2.1 mg/dl (1.7-2.4); Phosphorus 3.7 mg/dl (2.5-4.9)
[2024-03-22 08:36] LABS: Thyroid Stimulating Hormone 0.871 uIu/ml (0.300-4.500)
[2024-03-22 08:47] LABS: Estimated Average Glucose 120 mg/dl; Hemoglobin A1C 5.8 % (4.5-5.6)
[2024-03-22] MEDS: PANTOprazole 40 MG TAB PO SCH (09:03)
[2024-03-22] MEDS: THEOPHYLLINE 300MG EXTENDED REL TAB PO SCH (09:03)
[2024-03-22] MEDS: MONTELUKAST SODIUM 10 MG TABLET PO SCH (09:03)
[2024-03-22] MEDS: PIPER/TAZO 4.5g in D5W MINI-B 100 ML IV ONE (09:06)
--- NOTE | 2024-03-22 09:08 | XRay Report ---
XR chest 1V portable CLINICAL HISTORY: Chest pain, nonspecific TECHNIQUE: Single frontal radiograph of the chest was obtained. Comparison: Comparison is made to chest radiograph 06/22/2023 FINDINGS: No lines and tubes are seen. Calcified aortic knob is seen. Reticular interstitial opacities are seen . No evidence of pleural effusion or pneumothorax. IMPRESSION: Interstitial thickening without superimposed aspiration/pneumonia. ACT 112: Negative or not required by law. Electronically signed by: Rubén Ray M.D. 03/22/2024 9:06 AM
[2024-03-22] MEDS: LACTATED RINGER'S 1,000 ML IV SCH (09:28)
[2024-03-22] MEDS: INSULIN ASPART PER UNIT CHARGE SC SCH (09:32)
[2024-03-22] MEDS: ALBUTEROL HFA 8 GM INHALER INH PRN (09:36)
[2024-03-22] MEDS: FLUTICASONE FUROATE 100MCG 14 PUFFS/INHALER INH SCH (10:30)
[2024-03-22] MEDS: UMECLIDINIUM/VILANTEROL 62.5/25MCG 7 PUFFS/INHALER INH SCH (10:30)
[2024-03-22] MEDS: NYSTATIN SUSP 500,000 U/5 ML UDC BUCCAL SCH (11:09)
--- NOTE | 2024-03-22 11:25 | Hospitalist Progress Note ---
Date of Service March 22, 2024 Assessment & Plan (1) ANTHONY (acute kidney injury): Plan: Elevation of BUN=38 and Cr=3.68. Increased from 13 and 0.82, respectively, on 06/27/23. Suspect obstructive uropathy. Bladder scan performed in the ER with 868mL urine present in the bladder. Montanez catheter ordered. Patient with anion gap of 20, considering uremia as likely contributor. HCO3 low at 20. K is mildly low at 3.3. -Admit to medical with telemetry -Maintain Montanez catheter -Monitor strict I/Os -BMP q 12 hours to monitor renal function and electrolytes -IVF with LR at 125mL/hr x 2L ordered -Check Mg and PO4 and replete as needed -Hold HCTZ and Lisinopril -Avoid nephrotoxic agents Repeat BMP for current K and HCO3 values as we have been providing fluid resuscitation with LR and giving PO K repletion with KCl 4meq PO. (2) COPD (chronic obstructive pulmonary disease): Plan: patient reports some worsening shortness of breath -Continue Albuterol prn -Continue Trelegy once daily -Continue Theophylline 300mg PO TID - check level -Continue Singulair once daily - Duonebs q4h prn Consider daily cxr for continued SOB for effusion or opportunistic infection. (3) Elevated troponin: Plan: Patient denies chest pain. Troponin elevated at 46.1 around 4am No acute changes on EKG -> elevated to 81 around 11am. -Suspect demand ischemia in setting of reported hypotension + decreased clearance secondary to ANTHONY -Telemetry monitoring -Trend troponin to peak EKG ordered around 4:30pm for increasing troponin and tachycardia to 120s Ordered TTE as well, will likely have done once moved up to inpatient floor. Present on Admission?: No (4) Hypertension: Plan: chronic, currently holding HCTZ and Lisinopril due to Hypotension: - BP values 80s-90s sytolic over 50s-70s diastolic around 8-10am have normalized to 117/93 at 2pm - continue to hold HCTZ and Lisinopril unless patient becomes hypertensive Present on Admission?: Yes (5) Hyperglycemia: Plan: Elevated glucose at 208. Patient with no documented history of DM. -Check HgbA1C: 5.8 as of 5am 03/22/24 -BSG checks qACHS with ISS coverage as needed -Goal blood sugar 110 - 140 Repeat BMP for blood glucose reading. POC glucose has decreased from 135 down to 111 this afternoon. (6) Weakness: Plan: Likely secondary to ANTHONY in setting of obstructive uropathy. Also with leukocytosis - WBC=16.76, worsening SOB and sputum -Check TSH: within normal limits -Manage ANTHONY as above -Empiric Zosyn until leukocytes decrease or until specific infectious etiology is found (7) Leukocytosis: Plan: WBCs 16.78 on labs from ED arrival around 5am on 03/22/24 - trend with CBC - worsening SOB and sputum, consider pneumonia - procalcitonin 0.06 (normal) - Empiric Zosyn until leukocytes decrease or until specific infectious etiology is found Plan Patient seen and examined, chart reviewed, case discussed with Dr. Faith and I agree with the assessment and plan as above except as otherwise noted Labs and images reviewed 78-year-old male who presents with suspected obstructive uropathy. Decompressed over 800 cc after Montanez placement. Creatinine 3.68 from baseline of less than 1. No flank pain. Ultrasound renal bladder shows diminutive left kidney without evidence of hydro or other acute abnormality. Patient feels greatly improved following decompression. Remains tachycardic, suspected sinus tach versus SVT on admitting EKG. Does have inspiratory variation and ranges from [id number] on exam. initial underlying rhythm was thought to be A-fib RVR. Repeat EKG is consistent with sinus tachycardia. Will continue to treat underlying volume contraction with IVF. Given disproportionate tachycardia and hypoxia, D- dimer ordered to evaluate for potential PE, if positive risks of contrast in the setting of obstructive renal failure likely outweigh benefits and will temporarily heparinize pending pending ability to get CTA. Signed out to evening provider. On reassessment patient remained chest pain-free and without palpitations, orthopnea, difficulty breathing, or chest pressure. Repeat troponin is elevated gradual rise at 95 without chest pain or ST depression/elevations. Suspect demand/type II. D-dimer pending, signed out to overnight provider. If positive will heparinize, if negative will volume optimize and reevaluate for beta-dean appropriateness. Admission and Anticipated Discharge Date Admission Date: March 22, 2024 Supervising Physician Co-Signing Physician Notes Patient seen and examined, chart reviewed, case discussed with Mian Faith, and I agree with the assessment and plan as above except as otherwise noted Labs and images reviewed Fan seen in the ER at bedside evaluation. Admitted with acute renal failure and suspected obstructive uropathy with greater than 850 cc of urine postvoid decompressed with Montanez in place now draining light yellow urine. Patient is volume contracted lips/mucous membranes are dry and cracked. Serum osmolality is elevated consistent with volume contraction, serum osmole gap is normal. Is tachycardic and hypoxic. following initial fluid resuscitation volume status somewhat improved, remains tachycardic. Repeat EKG shows underlying sinus tachycardia. Patient is voiding. No pleuritic/leg pain. Lower extremity Dopplers did not show evidence of DVT. His D-dimer is markedly elevated. Given sinus tach disproportionate to fluid status only mild improvement with fluids, underlying hypoxia, recommended D-dimer and if positive to empirically heparinize. Signed out to overnight provider for monitoring. Risks of CTA outweigh the benefit of empiric heparin pending improvement in renal function. Once renal function improves will follow-up with CTA for final evaluation of PE and need for ongoing anticoagulation. Following heparinization troponin did begin to downtrend, sinus tachycardia downtrending. Echo pending. Transient hypotension however normotensive on reassessment and without significant distress. Will follow carefully, thrombolysis not recommended. Agree with assessment and management above. Subjective Patient seen at bedside in ER, resting comfortably and not appearing in acute distress. Shackled to bed b/l upper ext, supervised by 2 police officers. Denies any SOB, chest pain, nausea, or abdominal pain. Still feeling weak and fatigued. Troponin increased from 40->80 this morning, patient denies any chest pain since coming to the ED. At 4:30pm, patient continues to deny any chest pain. Endorses mild SOB but notes it's not worse than it usually is. Denies having any questions or concerns at this time. Review of Systems Review of Systems: All systems reviewed & are unremarkable except as noted in HPI & below Physical Exam Constitutional: well developed A&Ox3 Eyes: PERRL, conjunctivae normal, anicteric sclerae ENMT: external ear and nose normal, oropharynx normal Neck: trachea midline Respiratory: in mild respiratory distress with mildly elevated respiratory rate and slightly increased work of breathing on auscultation, b/l decreased air movement, mild rales heard b/l bases, no wheezes or rhonchi Cardiovascular: Rate/Rhythm: + tachycardic tachycardic, otherwise regular rhythm with no murmurs/rubs/gallops heard on chest auscultation Gastrointestinal (Abdomen): normal bowel sounds, soft, nontender, no hepatosplenomegaly Percussion/Palpation: abdomen soft Skin: + turgor decreased and + skin atrophy Results & Data Results & Data Vital Signs (Past 12 Hours) Vital Signs Temp Pulse Pulse Resp BP BP Pulse Ox 03/22/24 08:07 117 H 22 97 03/22/24 07:00 118 H 18 127/97 95 03/22/24 06:30 114 H 28 H 126/80 96 03/22/24 06:03 134 H 32 H 125/85 95 03/22/24 05:00 123 H 30 H 131/98 93 03/22/24 04:32 115 H 03/22/24 04:00 115 H 28 H 128/84 93 03/22/24 02:35 113 H 18 119/79 98 03/22/24 02:24 115 H 18 94 03/22/24 00:54 108 H 03/22/24 00:49 36.8 C 111 H 18 110/72 97 O2 Del Method O2 Flow Rate 03/22/24 08:07 Nasal Cannula 2 03/22/24 07:00 03/22/24 06:30 Nasal Cannula 2 03/22/24 06:03 Nasal Cannula 2 03/22/24 05:00 03/22/24 04:32 03/22/24 04:00 Nasal Cannula 2 03/22/24 02:35 Room Air 03/22/24 02:24 Room Air 03/22/24 00:54 03/22/24 00:49 Nasal Cannula 2 Laboratory Results Procalcitonin: 0.06 All others, please see results in diagnostics. Diagnostic Findings 03/22/24: b/l renal US: COMPARISON: Comparison is made to CT abdomen pelvis 02/11/2015 FINDINGS: The right kidney measures 11.3 cm in length, and the left kidney measures 8.1 cm in length. The right kidney is normal in size, contour, cortical thickness, and echogenicity. No hydronephrosis is identified. No renal lesion is identified. The left kidney is diminutive in size with cortical thinning noted. No hydronephrosis is identified. No renal lesion is identified. A Montanez catheter is seen in the collapsed bladder. No large intraluminal mass is seen. IMPRESSION: Diminutive left kidney without evidence of hydronephrosis or other acute abnormality. ECG Additional Comments: 03/22/24 at 5am: Vent. Rate : 122 BPM Atrial Rate : 122 BPM P-R Int : 140 ms QRS Dur : 088 ms QT Int : 338 ms P-R-T Axes : 083 088 059 degrees QTc Int : 481 ms Sinus tachycardia with Premature supraventricular complexes possible old inferior [place] Abnormal ECG When compared with ECG of 22-MAR-2024 01:01, (unconfirmed) Premature supraventricular complexes are now Present EKG at 5pm: no official read yet, but EKG suggests sinus tachycardia with PACs and possible left atrial enlargement. Otherwise similar findings as previous from 5am. Resident Activity Tracking Resident Involvement: Resident Care Provided Care Provided: Adult Hospital Medicine (2) COPD (chronic obstructive pulmonary disease) COPD type: unspecified COPD Qualified Code(s): J44.9 - Chronic obstructive pulmonary disease, unspecified (4) Hypertension Hypertension type: unspecified Qualified Code(s): I10 - Essential (primary) hypertension (7) Leukocytosis Leukocytosis type: bandemia Qualified Code(s): D72.825 - Bandemia
[2024-03-22] MEDS: LACTATED RINGER'S 500 ML IV ONE (11:53)
[2024-03-22] MEDS: POTASSIUM CHLORIDE 20 MEQ/15 ML UDC PO STA (11:57)
[2024-03-22] MEDS: ALBUT/IPRATROP 3MG/0.5MG NEB 3 ML VIAL NEB PRN (12:51)
--- NOTE | 2024-03-22 14:24 | Ultrasound Report ---
US renal/blad retro comp CLINICAL HISTORY: obstructive renal failure TECHNIQUE: Multiple sonographic real-time images of the kidneys and bladder were obtained. COMPARISON: Comparison is made to CT abdomen pelvis 02/11/2015 FINDINGS: The right kidney measures 11.3 cm in length, and the left kidney measures 8.1 cm in length. The right kidney is normal in size, contour, cortical thickness, and echogenicity. No hydronephrosis is identified. No renal lesion is identified. The left kidney is diminutive in size with cortical thinning noted. No hydronephrosis is identified. No renal lesion is identified. A Montanez catheter is seen in the collapsed bladder. No large intraluminal mass is seen. IMPRESSION: Diminutive left kidney without evidence of hydronephrosis or other acute abnormality. ACT 112: Negative or not required by law. Electronically signed by: Rubén Ray M.D. 03/22/2024 2:22 PM
[2024-03-22] MEDS ORDERED: PIPERACILLIN/TAZOBACTAM 4.5 GM in DEXTROSE 5% MINI-B 100 ML IV SCH (16:00)
[2024-03-22] MEDS: PIPERACILLIN/TAZOBACTAM 4.5 GM in DEXTROSE 5% MINI-B 100 ML IV SCH (17:19)
[2024-03-22 18:25] LABS: BUN Creatinine Ratio 12.4 (10-20); Calcium 9.4 mg/dl (8.6-10.3); Creatinine Clr Calc Pharmacy 16.7 ml/min; Est GFR (African American) 21.8 ml/min; Est GFR (Non-African American) 18.8 ml/min; Potassium 3.4 mmol/L (3.5-5.1)
[2024-03-22 18:35] LABS: Troponin I High Sensitivity 95.8 pg/ml (0-20)
[2024-03-22 20:15] LABS: D Dimer 3880 ug/L FEU (0-500)
[2024-03-22] MEDS: LOVASTATIN 20 MG TAB PO SCH (21:32)
[2024-03-22] MEDS: HEPARIN SODIUM/DEXTROSE 25,000 UNITS/500 ML BAG IV SCH (21:43)
[2024-03-22] MEDS: HEPARIN SOD (PORCINE) 1000 UNIT/ML IV ONE (21:44)
[2024-03-22] MEDS: Heparin IV Adult Wt-Based Standard w/ INITIAL Bolus Protocol IV STA (21:45)
--- NOTE | 2024-03-23 00:44 | Ultrasound Report ---
Exam(s): US VENOUS BILATERAL LOWER EXTREMITIES EXAM: US Duplex Bilateral Lower Extremities Veins CLINICAL HISTORY: Concern for deep vein thrombosis. TECHNIQUE: Real-time duplex ultrasound scan of the bilateral lower extremity veins integrating B-mode two-dimensional vascular structure, Doppler spectral analysis, color flow Doppler imaging and compression. COMPARISON: No relevant prior studies available. FINDINGS: Right deep veins: Unremarkable. No Deep vein thrombosis in the right common femoral, femoral, proximal deep femoral or popliteal veins. The veins demonstrate normal color flow, are normally compressible, with normal phasic flow and/or augmentation response. Right superficial veins: Unremarkable. No thrombus in the visualized right great saphenous vein. Left deep veins: Unremarkable. No Deep vein thrombosis in the left common femoral, femoral, proximal deep femoral or popliteal veins. The veins demonstrate normal color flow, are normally compressible, with normal phasic flow and/or augmentation response. Left superficial veins: Unremarkable. No thrombus in the visualized left great saphenous vein. Soft tissues: No acute findings. No popliteal cyst. IMPRESSION: No deep vein thrombosis of either lower extremity. Electronically signed by: Jennie Cheng MD 03/23/24 00:43 AM
[2024-03-23 04:25] LABS: Est GFR (African American) 24.5 ml/min; Potassium 3.5 mmol/L (3.5-5.1)
[2024-03-23 04:26] LABS: BUN Creatinine Ratio 12.5 (10-20); Calcium 9.2 mg/dl (8.6-10.3); Creatinine Clr Calc Pharmacy 18.3 ml/min; Est GFR (Non-African American) 21.1 ml/min
[2024-03-23 05:00] LABS: ANTI-Xa, UFH(UnfractionatedHep 1.26 IU/ml (0.3-0.7)
--- NOTE | 2024-03-23 06:55 | Electrocardiogram Report ---
Test Reason : Blood Pressure : / mmHG Vent. Rate : 124 BPM Atrial Rate : 124 BPM P-R Int : 152 ms QRS Dur : 088 ms QT Int : 366 ms P-R-T Axes : 082 085 069 degrees QTc Int : 525 ms Poor data quality, interpretation may be adversely affected Sinus tachycardia with Premature atrial complexes Possible Left atrial enlargement Cannot rule out Inferior infarct , age undetermined Abnormal ECG When compared with ECG of 22-MAR-2024 05:03, No significant change was found Confirmed by Herbert Juarez ([id number]) on 03/23/2024 6:55:16 AM Referred By: [facility] Confirmed By:Tico Juarez
--- NOTE | 2024-03-23 07:42 | Hospitalist Progress Note ---
Date of Service March 23, 2024 Assessment & Plan (1) ANTHONY (acute kidney injury): Plan: 03/22/24: Elevation of BUN=38 and Cr=3.68. Increased from 13 and 0.82, respectively, on 06/27/23. Suspect obstructive uropathy. Bladder scan performed in the ER with 868mL urine present in the bladder. Morel catheter placed and urine was able to drain. Morel catheter in place. - Patient with anion gap of 20, considering uremia as likely contributor. HCO3 low at 20. K is mildly low at 3.3. -IVF with LR at 125mL/hr x 2L ordered 03/23/24: BUN and Creatinine remain elevated but downtrending at 34 and 2.72, respectively. Urine continuing to drain into morel well, about 400cc yellow- clear urine. - anion gap has resolved, down to 10 today. - Potassium and HCO3 have normalized - Maintain Morel catheter - Monitor strict I/Os - BMP q 12 hours to monitor renal function and electrolytes -Check Mg and PO4 and replete as needed -Hold HCTZ and Lisinopril -Avoid nephrotoxic agents (2) COPD (chronic obstructive pulmonary disease): Plan: 03/22/24: patient reports some worsening shortness of breath -Continue Albuterol prn -Continue Trelegy once daily -Continue Theophylline 300mg PO TID - check level -Continue Singulair once daily - Duonebs q4h prn 03/23/24: still having SOB, no significant change from yesterday, intermittent coughing -Continue Albuterol prn -Continue Trelegy once daily -Continue Theophylline 300mg PO TID - check level -Continue Singulair once daily - Duonebs q4h prn - start Unasyn 3000mg q12 IV for suspected pulmonary source of infection (see Pneumonia below) (3) Elevated troponin: Plan: 03/22/24: Patient denies chest pain. Troponin elevated on 03/22/24 at 46.1 -> 81 -> 95, then down to 94 early this morning, 03/23/24. -Suspect demand ischemia in setting of reported hypotension + decreased clearance secondary to ANTHONY -Telemetry monitoring -Trend troponin to peak 03/23/24: continues to deny chest pain. Troponin decreasing, most recently 89.9 at 9am. - echocardiogram from this morning shows mild dilation and decreased RV systolic function and hyperdynamic LV, which could suggest obstruction in pulmonary vasculature, considering PE - holding off on CT pulm angiogram until BUN and Cr have resolved, currently elevated but downtrending -otherwise, suspect demand ischemia in setting of reported hypotension + de creased clearance secondary to ANTHONY -Telemetry monitoring (4) Hypertension: Plan: 03/22/24: chronic, currently holding HCTZ and Lisinopril due to Hypotension: - BP values 80s-90s sytolic over 50s-70s diastolic around 8-10am have normalized to 117/93 at 2pm - continue to hold HCTZ and Lisinopril unless patient becomes hypertensive 03/23/24: BP has been systolic 120s to 130s over diastolic 70s to 80s - continue to hold HCTZ and lisinopril (5) Hyperglycemia: Plan: 03/22/24: Elevated glucose at 208. Patient with no documented history of DM. -Check HgbA1C: 5.8 as of 5am 03/22/24 -BSG checks qACHS with ISS coverage as needed -Goal blood sugar 110 - 140 - Repeat BMP for blood glucose reading. - POC glucose has decreased from 135 down to 111 this afternoon. 03/23/24: blood glucose 125, within goal range 110-140 - continue BSG checks qACHS with ISS coverage as needed (6) Weakness: Plan: 03/22/24: Likely secondary to ANTHONY in setting of obstructive uropathy. Also with leukocytosis - WBC=16.76, worsening SOB and sputum -Check TSH: within normal limits -Manage ANTHONY as above -Empiric Zosyn until leukocytes decrease or until specific infectious etiology is found 03/23/24: improving with improving kidney status - empiric Zosyn discontinued as Unasyn started for suspected pulmonary source of infection (7) Leukocytosis: Plan: 03/22/24: WBCs 16.78 on labs from ED arrival around 5am - worsening SOB and sputum, consider pneumonia - trend with CBC - procalcitonin 0.06 (normal) - Empiric Zosyn until leukocytes decrease or until specific infectious etiology is found 03/23/24: WBCs continuing to rise, 17.46 - continue to trend with CBC - continued SOB and intermittent sputum - Empiric Zosyn given at 9am this morning, has been discontinued and Unasyn to start 9pm tonight - begin Unasyn 3000mg q12h for suspected pulmonary source of infection (8) Elevated d-dimer: Plan: 03/22/24: lab ordered due to patient's persistent tachycardia to 120s without chest or leg pain nor exam findings - resulted 3,880 overnight - was started on heparin for suspected DVT or PE - b/l venous doppler of b/l LE was performed, unremarkable - continue to assess for tachycardia, chest pain, SOB above baseline, leg pain. 03/23/24: echocardiogram suggests strain on RV and lack of filling in LV, which could be indicative of PE - to continue on heparin - CT chest PE protocol once pt's kidney function improves more - continue monitoring BUN and Cr with daily BMPs for improved kidney function - continue assessing for tachycardia, chest pain, and SOB above baseline. (9) Pneumonia: Plan: 03/23/24: suspected pneumonia based on COPD with decreased air movement, inmate status, weakness which could lead to aspiration, and elevated / rising WBC count - coughing with sputum intermittently, SOB is baseline, currently no chest pain or bloody sputum - cxr from 03/22/24 unremarkable, less opacity in RLL compared to previous cxr in Jun 2023, the last time pt had pneumonia - discontinued empiric Zosyn, last dose 9am this morning - started Unasyn 3000mg q12, first dose tonight 9pm Plan Patient seen and examined, chart reviewed, case discussed with Mian Faith, and I agree with the assessment and plan as above except as otherwise noted Labs and images reviewed Fan seen in the ER at bedside evaluation. Admitted with acute renal failure and suspected obstructive uropathy with greater than 850 cc of urine postvoid decompressed with Morel in place now draining light yellow urine. Patient is volume contracted lips/mucous membranes are dry and cracked. Serum osmolality is elevated consistent with volume contraction, serum osmole gap is normal. Is tachycardic and hypoxic. following initial fluid resuscitation volume status somewhat improved, remains tachycardic. Repeat EKG shows underlying sinus tachycardia. Patient is voiding. No pleuritic/leg pain. Lower extremity Dopplers did not show evidence of DVT. His D-dimer is markedly elevated. Given sinus tach disproportionate to fluid status only mild improvement with fluids, underlying hypoxia, recommended D-dimer and if positive to empirically heparinize. Signed out to overnight provider for monitoring. Risks of CTA outweigh the benefit of empiric heparin pending improvement in renal function. Once renal function improves will follow-up with CTA for final evaluation of PE and need for ongoing anticoagulation. Following heparinization troponin did begin to downtrend, sinus tachycardia downtrending. Echo pending. Transient hypotension however normotensive on reassessment and without significant distress. Echo is with increased RVP and LV hyperdynamic. Will follow carefully, thrombolysis not recommended. Agree with assessment and management above. Admission and Anticipated Discharge Date Admission Date: March 22, 2024 Subjective Overnight, pt's D-dimer resulted 3,880 and was given unfractionated heparin in the next hour. Venous doppler of b/l LE was performed and no DVT was found, EKG official reads were also not indicative of PE aside from pt's tachycardia. No other acute events overnight. Vital signs have normalized. Received echocardiogram which illustrated increased work of Right ventricle and hyperdynamic Left ventricle (see Results & Date -> diagnostic findings section for details) Patient seen at bedside on inpatient floor this morning, resting comfortably and not appearing in acute distress. Shackled to bed by LLE, supervised by 2 police officers. Denies any SOB, chest pain, nausea, or abdominal pain. Still feeling weak and fatigued. Patient denies having any questions or concerns at this time. Review of Systems Review of Systems: All systems reviewed & are unremarkable except as noted in HPI & below Constitutional: as per Subjective / HPI Physical Exam Constitutional: well developed and cooperative Eyes: PERRL, conjunctivae normal, anicteric sclerae ENMT: external ear and nose normal, oropharynx normal Neck: trachea midline Respiratory: + audible wheezes increased effort to breathe but not in distress on auscultation, shallow movement of air and mild wheezes b/l Cardiovascular: Rate/Rhythm: + tachycardic Gastrointestinal (Abdomen): normal bowel sounds, soft, nontender, no hepatosplenomegaly Percussion/Palpation: abdomen soft Skin: + turgor decreased and + skin atrophy no decubitus ulcers on inspection, still dry but improving Results & Data Results & Data Vital Signs (Past 12 Hours) Vital Signs Temp Pulse Pulse Resp BP Pulse Ox O2 Del Method 03/23/24 07:03 99 H 03/23/24 03:00 36.6 C 102 H 20 126/74 96 Nasal Cannula 08/04/24 01:11 119 H 03/22/24 22:23 36.5 C 120 H 18 123/73 94 Nasal Cannula 03/22/24 20:24 Nasal Cannula 03/22/24 19:34 36.7 C 118 H 18 125/75 95 Nasal Cannula O2 Flow Rate 03/23/24 07:03 03/23/24 03:00 2 03/23/24 01:11 03/22/24 22:23 4 03/22/24 20:24 2 03/22/24 19:34 2 Diagnostic Findings 03/23/24: venous doppler US of b/l LE: unremarkable Echocardiogram: - LV: normal in size, normal wall thickness, hyperdynamic, EF >70%, Grade I diastolic dysfunction, wall motion normal - RV: mildly dilated, systolic function is borderline reduced - other findings either unremarkable or not well visualized Resident Activity Tracking Resident Involvement: Resident Care Provided Care Provided: Adult Hospital Medicine (2) COPD (chronic obstructive pulmonary disease) COPD type: unspecified COPD Qualified Code(s): J44.9 - Chronic obstructive pulmonary disease, unspecified (4) Hypertension Hypertension type: unspecified Qualified Code(s): I10 - Essential (primary) hypertension (7) Leukocytosis Leukocytosis type: bandemia Qualified Code(s): D72.825 - Bandemia (9) Pneumonia Laterality: unspecified laterality Lung location: lower lobe of lung Pneumonia type: due to unspecified organism Qualified Code(s): J18.9 - Pneumonia, unspecified organism
[2024-03-23 08:03] LABS: Basophils # (auto) 0.03 K/uL (0.00-0.20); Basophils % (auto) 0.2 %; Hematocrit (blood only) 40.5 % (42.0-52.0); Hemoglobin 13.3 g/dl (14.0-18.0); Immature Granulocytes # (auto) 0.09 K/uL (0.01-0.20); Immature Granulocytes % (auto) 0.5 %; Lymphocytes # (auto) 1.56 K/uL (1.20-3.40); Lymphocytes % (auto) 8.9 %; Mean Corpuscular Hemoglobin 31.8 pg (25.0-34.0); Mean Corpuscular Hgb Conc 32.8 g/dL (32.0-36.0); Mean Corpuscular Volume 96.9 fL (80.0-100.0); Mean Platelet Volume 11.1 fL (9.4-12.4); Monocytes # (auto) 2.12 K/uL (0.11-0.59); Monocytes % (auto) 12.1 %; Neutrophils # (auto) 13.66 K/uL (1.40-6.50); Neutrophils % (auto) 78.3 %; Platelet Count 176 K/uL (130-400); RDW Coefficient of Variation 12.8 % (11.5-14.5); RDW Standard Deviation 45.7 fL (36.4-46.3); Red Blood Count 4.18 M/uL (4.70-6.10); White Blood Count 17.46 K/ul (4.8-10.8)
[2024-03-23 08:06] LABS: ANTI-Xa, UFH(UnfractionatedHep 0.55 IU/ml (0.3-0.7)
[2024-03-23] MEDS: LACTATED RINGER'S 1,000 ML IV SCH (08:13)
--- NOTE | 2024-03-23 09:20 | XCELERA ---
[id number]
[2024-03-23 13:55] LABS: Appearance Urine Clear (Clear); Bacteria Urine Automated None Seen (None Seen); Bilirubin Urine Negative (Negative); Blood Urine 3+ (Negative); Cast Urine Automated 0-2 /lpf (0-2); Color Urine Orange; Epithelial Cell Urine Auto 0-2 /hpf (0-2); Glucose Urine UA Negative (Negative); Ketones Urine Negative (Negative); Leukocyte Esterase Urine 1+ (Negative); Nitrite Urine Negative (Negative); Protein Urine 1+ (Negative); RBC Urine Automated >20 /hpf (0-2); Specific Gravity Urine 1.009 (1.000-1.030); Urobilinogen Urine Negative (Negative)
[2024-03-23 14:41] LABS: BUN Creatinine Ratio 12.7 (10-20); Calcium 9.2 mg/dl (8.6-10.3); Creatinine Clr Calc Pharmacy 17.8 ml/min; Est GFR (African American) 24.1 ml/min; Est GFR (Non-African American) 20.8 ml/min; Potassium 3.6 mmol/L (3.5-5.1)
[2024-03-23 15:06] LABS: ANTI-Xa, UFH(UnfractionatedHep 0.42 IU/ml (0.3-0.7)
[2024-03-23] MEDS: AMPICILLIN/SULBACTAM SOD 3,000 MG in SODIUM CHLOR 0.9% MINI-B 100 ML IV SCH (21:05)
[2024-03-23] MEDS ORDERED: Nursing to Pharmacy Communication SCH (22:15)
[2024-03-24 08:16] LABS: BUN Creatinine Ratio 16.7 (10-20); Calcium 9.1 mg/dl (8.6-10.3); Creatinine Clr Calc Pharmacy 21.8 ml/min; Est GFR (African American) 32.5 ml/min; Est GFR (Non-African American) 28.1 ml/min; Potassium 3.3 mmol/L (3.5-5.1)
[2024-03-24 09:02] LABS: ANTI-Xa, UFH(UnfractionatedHep 0.44 IU/ml (0.3-0.7)
--- NOTE | 2024-03-24 17:40 | Hospitalist Progress Note ---
Date of Service March 24, 2024 Assessment & Plan (1) ANTHONY (acute kidney injury): Plan: - BUN and Creatinine remain elevated. Creatinine improving from 2.72 to 2.15. BUN has increased from 34 to 36. Urine continuing to drain into [place] well, about 3450 cc yellow-clear urine. - anion gap is 10. - Potassium decreased to 3.3 - Maintain [place] catheter - Monitor strict I/Os - BMP q 12 hours to monitor renal function and electrolytes -Hold HCTZ and Lisinopril -Avoid nephrotoxic agents (2) COPD (chronic obstructive pulmonary disease): Plan: - Still having mild SOB and cough, improved from yesterday - Patient O2 95% on room air now, taken off 2L O2 via nasal cannula - Continue Albuterol prn - Continue Trelegy once daily - Continue Theophylline 300mg PO TID - check level - Continue Singulair once daily - DuoNeb q4h prn - continue Unasyn 3000mg q12 IV (3) Elevated troponin: Plan: - Patient denies chest pain. Troponin decreasing, most recently 73.6 this am. - echocardiogram from this morning shows mild dilation and decreased RV systolic function and hyperdynamic LV, which could suggest obstruction in pulmonary vasculature, considering PE - holding off on CT pulm angiogram until BUN and Cr have resolved, currently elevated but downtrending - Ordered nuclear medicine v/q scan to test for PE -otherwise, suspect demand ischemia in setting of reported hypotension and decreased clearance secondary to ANTHONY -Telemetry monitoring (4) Hypertension: Plan: - BP has been systolic 130s to 140s over diastolic 70s to 80s - continue to hold HCTZ and lisinopril (5) Hyperglycemia: Plan: - blood glucose down trending from 125 to 107 to 105 most recent - Have d/c BSG checks as glucose has normalized (6) Weakness: Plan: - improving, patient reports less weakness over the last 2 days - Unasyn continued for suspected pulmonary source of infection (7) Leukocytosis: Plan: - WBC level of 17.46 8/4 - continue to trend with CBC - mild SOB and cough - continue Unasyn 3000mg q12h for suspected pulmonary source of infection (8) Elevated d-dimer: Plan: - echocardiogram suggests strain on RV and lack of filling in LV, which could be indicative of PE - continue heparin - nuclear medicine v/q scan to follow up on possible PE - continue monitoring BUN and Cr with daily BMPs for improved kidney function - continue assessing for tachycardia, chest pain, and SOB above baseline. (9) Pneumonia: Plan: - suspected pneumonia based on COPD with decreased air movement, inmate status, weakness which could lead to aspiration, and elevated / rising WBC count - coughing with sputum intermittently, SOB is baseline, currently no chest pain or hemoptysis - CXR from 03/22/24 unremarkable - continue Unasyn 3000 mg q12 Admission and Anticipated Discharge Date Admission Date: March 22, 2024 Supervising Physician Co-Signing Physician Notes I personally examined the patient and verified valdes points of history and exam, discussed case, and agree with decision making and plan documented by Dr. Best. ANTHONY improving, will continue to monitor electrolytes and replete as needed. At present we are holding patient's antihypertensives, blood pressures have been stable. Patient on room air at present, states he is feeling improvement, denies any pain. Patient was placed on heparin drip yesterday for concerns of sinus tach, elevated D-dimer, possible PE. VQ scan was ordered. Patient appears comfortable, lungs clear b/l to auscultation, regular rate and rhythm, no acute distress. Patient continues to show clinical improvement, remains on Unasyn, will recheck leukocytosis with labs tomorrow and can consider change to oral antibiotics. Subjective No acute events overnight. Patient denies fevers, chills, palpitations, chest pain or tightness, abdominal pain, vomiting, or nausea. Patient was seen this morning eating breakfast, resting comfortably, and not appearing in acute distress. Patient endorses some SOB and cough, but this has improved from yesterday. Patient also endorses some weakness and fatigue, but this has also improved since yesterday. Patient also explains that he is beginning to get his appetite back. Patient was given unfractionated heparin due to an elevated d-dimer. Venous Doppler of bilateral LE was performed and no DVT was found, EKG official reads were also not indicative of PE echocardiogram 03/23 showed increased work of right ventricle and hyperdynamic left ventricle. EF > 70%, with normal left ventricular wall motion. Grade 1 diastolic dysfunction with mildly dilated right ventricle. Patient denies having any questions or concerns at this time. Physical Exam Physical Exam: General: patient resting comfortably, NAD, non-toxic in appearance, AA&O x 4, answers questions appropriately. Skin: warm, dry, intact HEENT: NC/AT, anicteric sclera, conjunctiva without injection, moist mucus membranes Heart: +S1/S2, regular, no m/r/g Lungs: equal air entry bilaterally, no rales/rhonchi/wheezes Abd: +BS, soft, NT/ND Ext: warm, no clubbing/cyanosis or edema Neuro: nonfocal, patient AA&O x 4, speech intact, no facial droop, moving all extremities on command. Results & Data Results & Data Vital Signs (Past 12 Hours) Vital Signs Temp Pulse Pulse Resp BP Pulse Ox O2 Del Method 03/24/24 15:31 36.4 C L 91 H 18 133/84 95 Room Air 03/24/24 15:09 96 H 03/24/24 11:38 36.4 C L 84 18 123/77 96 Nasal Cannula 03/24/24 09:55 Nasal Cannula 03/24/24 07:45 36.9 C 82 18 143/91 H 96 Nasal Cannula 03/24/24 07:22 81 O2 Flow Rate 03/24/24 15:31 03/24/24 15:09 03/24/24 11:38 2 03/24/24 09:55 2 03/24/24 07:45 2 03/24/24 07:22 Resident Activity Tracking Resident Involvement: Resident Care Provided Care Provided: Adult Hospital Medicine (2) COPD (chronic obstructive pulmonary disease) COPD type: unspecified COPD Qualified Code(s): J44.9 - Chronic obstructive pulmonary disease, unspecified (4) Hypertension Hypertension type: unspecified Qualified Code(s): I10 - Essential (primary) hypertension (7) Leukocytosis Leukocytosis type: bandemia Qualified Code(s): D72.825 - Bandemia (9) Pneumonia Laterality: unspecified laterality Lung location: lower lobe of lung Pneumonia type: due to unspecified organism Qualified Code(s): J18.9 - Pneumonia, unspecified organism
[2024-03-24] MEDS: POTASSIUM CHLORIDE CRTAB 20 MEQ TABCR PO STA (17:41)
[2024-03-25 05:58] LABS: Basophils # (auto) 0.03 K/uL (0.00-0.20); Basophils % (auto) 0.3 %; Eosinophils # (auto) 0.04 K/uL (0.00-0.50); Eosinophils % (auto) 0.4 %; Hematocrit (blood only) 40.7 % (42.0-52.0); Hemoglobin 13.7 g/dl (14.0-18.0); Immature Granulocytes # (auto) 0.07 K/uL (0.01-0.20); Immature Granulocytes % (auto) 0.6 %; Lymphocytes # (auto) 2.15 K/uL (1.20-3.40); Lymphocytes % (auto) 18.8 %; Mean Corpuscular Hemoglobin 31.8 pg (25.0-34.0); Mean Corpuscular Hgb Conc 33.7 g/dL (32.0-36.0); Mean Corpuscular Volume 94.4 fL (80.0-100.0); Mean Platelet Volume 11.2 fL (9.4-12.4); Monocytes # (auto) 1.59 K/uL (0.11-0.59); Monocytes % (auto) 13.9 %; Neutrophils # (auto) 7.53 K/uL (1.40-6.50); Platelet Count 167 K/uL (130-400); RDW Coefficient of Variation 12.6 % (11.5-14.5); RDW Standard Deviation 43.9 fL (36.4-46.3); Red Blood Count 4.31 M/uL (4.70-6.10); White Blood Count 11.41 K/ul (4.8-10.8)
[2024-03-25 06:06] LABS: Albumin Globulin Ratio 1.3 (0.9-2); Albumin Level 3.6 gm/dl (3.4-5.0); BUN Creatinine Ratio 18.9 (10-20); Bilirubin,Total 0.7 mg/dl (0.2-1.0); Calcium 9.1 mg/dl (8.6-10.3); Creatinine Clr Calc Pharmacy 22.1 ml/min; Est GFR (African American) 33.1 ml/min; Est GFR (Non-African American) 28.5 ml/min; Globulin 2.7 gm/dl (2.5-4.0); Potassium 3.1 mmol/L (3.5-5.1); Total Protein 6.3 gm/dl (6.0-8.3)
[2024-03-25 06:17] LABS: ANTI-Xa, UFH(UnfractionatedHep 0.29 IU/ml (0.3-0.7); INR 1.1 (0.9-1.1); Prothrombin Time 12.2 Seconds (9.0-12.0)
--- NOTE | 2024-03-25 08:39 | Nuclear Medicine Report ---
NUCLEAR MEDICINE PERFUSION SCAN CLINICAL HISTORY: Concern for Pulmonary Embolism COMPARISON STUDY: Chest CT June 22, 2023. Chest radiograph March 22, 2024. TECHNIQUE: Nuclear medicine perfusion study was performed following intravenous injection of 5 mCi of technetium 99m MAA at 8:28 AM on March 25, 2024. Following radiotracer injection, imaging of the zamzam st was performed in multiple projections. No ventilation was performed given ventilation precautions. FINDINGS: Heterogeneous perfusion to both lungs is noted. There is relatively diminished perfusion to both upper lobes, likely related to emphysema. No areas of abnormal radiotracer uptake are identifie d. IMPRESSION: Heterogeneous perfusion to both lungs with relatively diminished perfusion to the upper lobes, likely related to emphysema. Given lack of ventilation imaging, this study is considered indet erminate/intermediate probability for pulmonary embolus. If possible, CT chest PE protocol is recomme nded. ACT 112: Negative or not required by law. Electronically signed by: Maxx Morris M.D. 03/25/2024 8:38 AM
[2024-03-25] MEDS: POTASSIUM CHLORIDE CRTAB 20 MEQ TABCR PO STA (08:54)
--- NOTE | 2024-03-25 10:15 | Hospitalist Progress Note ---
Date of Service March 25, 2024 Assessment & Plan (1) ANTHONY (acute kidney injury): Plan: - BUN and Creatinine remain elevated. Creatinine slightly improved to 2.12 today. BUN continues to increase and is 40 today. Urine continuing to drain into [place] well, about 2750 cc yellow-clear urine. - anion gap is 8 - Potassium decreased to 3.1, replacement therapy: 40 meq PO 8 am, second 40 meq PO dose at 3 pm - ordered fluids, 2L lactated ringers @ 100 ml/hr to improve renal function - Maintain Mont[place]z catheter - Monitor strict I/Os - BMP q 12 hours to monitor renal function and electrolytes - Hold HCTZ and Lisinopril - Avoid nephrotoxic agents (2) COPD (chronic obstructive pulmonary disease): Plan: - Still having mild SOB and cough normal for patient - Patient O2 97% on 2L O2 via nasal cannula - Continue Albuterol prn - Continue Trelegy once daily - Continue Theophylline 300mg PO TID - check level - Continue Singulair once daily - DuoNeb q4h prn - continue Unasyn 3000mg q12 IV (3) Elevated troponin: Plan: - Patient denies chest pain/pressure/palpitation. Last troponin 73.6 on 03/23 - echocardiogram from this morning shows mild dilation and decreased RV systolic function and hyperdynamic LV, which could suggest obstruction in pulmonary vasculature, considering PE - - holding off on CT pulmonary angiogram until BUN and Cr downtrend, and eGFR > 30 currently 28.5 - Nuclear medicine v/q scan performed with only perfusion, no evidence of PE but recommendation is a CT PE as ventilation portion was not done - otherwise, suspect demand ischemia in setting of reported hypotension and decreased clearance secondary to ANTHONY - Telemetry monitoring (4) Hypertension: Plan: - BP has been systolic 130s to 140s over diastolic 70s to 80s - continue to hold HCTZ and lisinopril (5) Leukocytosis: Plan: - WBC level of 17.46 03/23 --> 11.41 03/25 - continue to trend with CBC - mild SOB and cough - continue Unasyn 3000mg q12h for suspected pulmonary source of infection Admission and Anticipated Discharge Date Admission Date: March 22, 2024 Supervising Physician Co-Signing Physician Notes I personally examined the patient and verified valdes points of history and exam, discussed case, and agree with decision making and plan documented by Dr. Best. VQ scan today was indeterminate for possible pulmonary embolism. Patient was placed on heparin due to elevated D-dimer and tachycardia. Discussed with patient that we hope to give him some fluids and see if his GFR improves, patient had obstructive uropathy that cause ANTHONY. Reviewed if GFR improves, can proceed with CTA. Patient with clinical improvement on antibiotics, leukocy tosis is improving, will likely transition to oral antibiotics. Subjective No acute events overnight. Patient denies fevers, chills, palpitations, chest pain or tightness, abdominal pain, vomiting, or nausea. Patient was seen this morning after his v/q nuclear medicine scan. Patient endorses some SOB and cough that has continued to improve. Patient feels that his wheezing and cough is back to the normal level he deals with for his chronic COPD. Patient denies weakness and fatigue today, and is more alert. Patient also feels that his appetite is back to normal levels today. Patient is on unfractionated heparin due to an elevated d-dimer. Venous Doppler of bilateral LE was performed and no DVT was found, EKG official reads were also not indicative of PE. v/q nuclear medicine scan showed no evidence of a PE, however only perfusion was studied not ventilation, thus the recommendation is to still get a CT PE study once patient's gfr improves to >30 echocardiogram 03/23 showed increased work of right ventricle and hyperdynamic left ventricle. EF > 70%, with normal left ventricular wall motion. Grade 1 diastolic dysfunction with mildly dilated right ventricle. Patient denies having any questions or concerns at this time. Physical Exam Physical Exam: General: patient resting comfortably, NAD, non-toxic in appearance, answers questions appropriately. Skin: warm, dry, intact HEENT: NC/AT, anicteric sclera, conjunctiva without injection, moist mucus membranes Heart: +S1/S2, regular, no m/r/g Lungs: equal air entry bilaterally, no rales/rhonchi/wheezes Abd: +BS, soft, NT/ND Ext: warm, no clubbing/cyanosis or edema Neuro: nonfocal, patient AA&O x 4, speech intact, no facial droop, moving all extremities on command. Results & Data Results & Data Vital Signs (Past 12 Hours) Vital Signs Temp Pulse Pulse Resp BP Pulse Ox O2 Del Method 03/25/24 09:40 82 03/25/24 07:50 36.5 C 80 18 128/81 97 Nasal Cannula 03/25/24 03:27 36.5 C 81 14 122/82 96 Nasal Cannula 03/24/24 22:55 36.5 C 66 14 137/81 94 Nasal Cannula 03/24/24 22:19 100 H O2 Flow Rate 03/25/24 09:40 03/25/24 07:50 2 03/25/24 03:27 2 03/24/24 22:55 2 03/24/24 22:19 Resident Activity Tracking Resident Involvement: Resident Care Provided Care Provided: Adult Hospital Medicine (2) COPD (chronic obstructive pulmonary disease) COPD type: unspecified COPD Qualified Code(s): J44.9 - Chronic obstructive pulmonary disease, unspecified (4) Hypertension Hypertension type: unspecified Qualified Code(s): I10 - Essential (primary) hypertension (5) Leukocytosis Leukocytosis type: bandemia Qualified Code(s): D72.825 - Bandemia
[2024-03-25 12:56] LABS: ANTI-Xa, UFH(UnfractionatedHep 0.28 IU/ml (0.3-0.7)
[2024-03-25] MEDS: LACTATED RINGER'S 1,000 ML IV SCH ×2 (12:56→19:15)
[2024-03-25] MEDS: POTASSIUM CHLORIDE CRTAB 20 MEQ TABCR PO ONE (14:46)
[2024-03-25] MEDS: LACTATED RINGER'S 500 ML IV ONE ×2 (15:59→18:03)
[2024-03-25 17:45] LABS: BUN Creatinine Ratio 21.6 (10-20); Creatinine Clr Calc Pharmacy 24.1 ml/min; Est GFR (African American) 36.8 ml/min; Est GFR (Non-African American) 31.8 ml/min; Potassium 3.8 mmol/L (3.5-5.1)
[2024-03-25] MEDS: OPTIRAY 320 125ml IV ONE (19:02)
[2024-03-25 19:50] VITALS: RESP 18
[2024-03-25 19:58] LABS: ANTI-Xa, UFH(UnfractionatedHep 0.31 IU/ml (0.3-0.7)
--- NOTE | 2024-03-25 20:28 | CT Scan Report ---
Exam(s): CTA CHEST IV Amt: 116 ml optiray 320 EXAM: CT Angiography Chest With Intravenous Contrast CLINICAL HISTORY: Reason for exam: PE. TECHNIQUE: Axial computed tomographic angiography images of the chest with intravenous contrast. CTDI is 16 mGy and DLP is 589 mGy-cm. Automated exposure control was utilized for the study. A dose lowering technique was utilized adhering to the principles of ALARA. MIP reconstructed images were created and reviewed. COMPARISON: CTA chest: 06/22/2023 FINDINGS: Motion-induced image degradation. Pulmonary arteries: Unremarkable. No pulmonary embolism. There is a left lower pulmonary vein thrombosis (series 2 image 64), new since prior comparison, is a rare clinical finding, that is potentially life-threatening. Aorta: Diffuse calcified atherosclerotic plaques. Mild 4.2 cm aneurysm of the ascending aorta. Lungs: Central airways are patent. Diffuse bronchial wall thickening/mild/moderate tubular bronchiectasis. Moderately severe centrilobular emphysema. Biapical pleural-parenchymal thickening/scarring. Chronic pneumonic infiltrates and small subpleural opacities remain in the posterior right lower lobe with interval improvement. In the left lower lobe posteriorly subpleural new mild interstitial infiltrates are seen. No suspicious pulmonary mass identified. Pleural space: Posteriorly mild pleural thickening. No significant effusion. No pneumothorax. An elevated left hemidiaphragm. Heart: Unremarkable. No cardiomegaly. No significant pericardial effusion. No evidence of RV dysfunction. Bones/joints: No acute fracture. No dislocation. Degenerative spondylosis. Increased thoracic kyphosis. Soft tissues: Unremarkable. Lymph nodes: A right paraesophageal 6 mm round calcified lymph node. No enlarged lymph nodes/no lymphadenopathy by CT size criteria.. Other findings: A distended stomach filled with ingested food debris, fluid and gas.. IMPRESSION: No pulmonary embolism. Left lower pulmonary vein thrombosis is new since prior, a rare clinical finding. Recommend clinical correlation/follow-up. A 4.2 cm ascending aortic aneurysm. Moderately severe centrilobular pulmonary emphysema. Bilateral bronchial wall thickening and mild central tubular bronchiectasis. Residual left lower lobe pneumonic infiltrates, subpleural small opacities remain with interval improvement. Left lower lobe posteriorly subpleural mild new interstitial infiltrates. . Electronically signed by: Kellie Stewart MD, MERLER 03/25/24 20:27 PM
[2024-03-26 07:22] LABS: ANTI-Xa, UFH(UnfractionatedHep 0.41 IU/ml (0.3-0.7)
[2024-03-26 09:59] LABS: Basophils # (auto) 0.05 K/uL (0.00-0.20); Basophils % (auto) 0.5 %; Eosinophils # (auto) 0.14 K/uL (0.00-0.50); Eosinophils % (auto) 1.3 %; Hemoglobin 14.4 g/dl (14.0-18.0); Immature Granulocytes # (auto) 0.07 K/uL (0.01-0.20); Immature Granulocytes % (auto) 0.6 %; Lymphocytes # (auto) 2.09 K/uL (1.20-3.40); Lymphocytes % (auto) 19.4 %; Mean Corpuscular Hemoglobin 31.5 pg (25.0-34.0); Mean Corpuscular Hgb Conc 32.7 g/dL (32.0-36.0); Mean Corpuscular Volume 96.3 fL (80.0-100.0); Mean Platelet Volume 11.5 fL (9.4-12.4); Monocytes # (auto) 1.11 K/uL (0.11-0.59); Monocytes % (auto) 10.3 %; Neutrophils # (auto) 7.31 K/uL (1.40-6.50); Neutrophils % (auto) 67.9 %; Platelet Count 141 K/uL (130-400); RDW Coefficient of Variation 12.7 % (11.5-14.5); RDW Standard Deviation 45.1 fL (36.4-46.3); Red Blood Count 4.57 M/uL (4.70-6.10); White Blood Count 10.77 K/ul (4.8-10.8)
[2024-03-26 10:14] LABS: Albumin Globulin Ratio 1.2 (0.9-2); Albumin Level 3.5 gm/dl (3.4-5.0); BUN Creatinine Ratio 20.2 (10-20); Bilirubin,Total 0.6 mg/dl (0.2-1.0); Calcium 9.1 mg/dl (8.6-10.3); Est GFR (African American) 40.8 ml/min; Est GFR (Non-African American) 35.2 ml/min; Globulin 2.9 gm/dl (2.5-4.0); Potassium 3.3 mmol/L (3.5-5.1); Total Protein 6.4 gm/dl (6.0-8.3)
[2024-03-26 11:30] VITALS: BP 118/73; TEMP 97.3; O2SAT 96
--- NOTE | 2024-03-26 11:44 | Hospitalist Progress Note ---
Date of Service March 26, 2024 Assessment & Plan (1) Pulmonary venous thrombosis: Plan: Patient recently had a CTA chest due to an elevated D-dimer of 3880, negative DVT studies, negative v/q scan. CTA chest showed a rare finding of pulmonary vein thrombosis as well as right lower lobe chronic pneumonic infiltrates and small subpleural opacities with interval improvement. In left lower lobe there are posterior subpleural mild new interstitial infiltrates. 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 Creatinine 2.12--> 1.78 today. BUN decreased from 42-->36. Urine continuing to drain into [place] well, about 3300 cc yellow-clear urine. - anion gap is 8 - Potassium replacement therapy: 40 meq PO 8 am, second 40 meq PO dose at 3 pm 03/25, potassium improved to 3.3 will continue supplementing - 2L lactated ringers @ 100 ml/hr to improve renal function - Maintain [place]z catheter - Monitor strict I/Os - BMP q 12 hours to monitor renal function and electrolytes - Hold HCTZ and Lisinopril - Avoid nephrotoxic agents (3) COPD (chronic obstructive pulmonary disease): Plan: - Still having mild SOB and cough normal for patient - Patient O2 97% on 2L O2 via nasal cannula - Continue Albuterol prn - Continue Trelegy once daily - Continue Theophylline 300mg PO TID - check level - Continue Singulair once daily - DuoNeb q4h prn - continue Unasyn 3000mg q12 IV (4) Elevated troponin: Plan: - Patient denies chest pain/pressure/palpitation. Last troponin 73.6 on 03/23 - echocardiogram from this morning shows mild dilation and decreased RV systolic function and hyperdynamic LV, which could suggest obstruction in pulmonary vasculature, considering PE - - holding off on CT pulmonary angiogram until BUN and Cr downtrend, and eGFR > 30 currently 28.5 - Nuclear medicine v/q scan performed with only perfusion, no evidence of PE but recommendation is a CT PE as ventilation portion was not done - otherwise, suspect demand ischemia in setting of reported hypotension and decreased clearance secondary to ANTHONY - Telemetry monitoring (5) Hypertension: Plan: - BP has been systolic 130s to 140s over diastolic 70s to 80s - continue to hold HCTZ and lisinopril (6) Leukocytosis: Plan: - WBC level of 17.46 03/23 --> 11.41 03/25 - continue to trend with CBC - mild SOB and cough - continue Unasyn 3000mg q12h for suspected pulmonary source of infection Admission and Anticipated Discharge Date Admission Date: March 22, 2024 Subjective No acute events overnight. Patient denies fevers, chills, palpitations, chest pain or tightness, abdominal pain, vomiting, or nausea. Patient was seen this morning resting comfortably. Patient endorses some SOB and cough that has continued to improve. Patient feels that his wheezing and cough is back to baseline levels for his chronic COPD. Patient denies weakness and fatigue today, and is alert. Patient appetite continues to improve. Patient is on unfractionated heparin due to an elevated d-dimer. Venous Doppler of bilateral LE was performed and no DVT was found, EKG official reads were also not indicative of PE. v/q nuclear medicine scan showed no evidence of a PE, however only perfusion was studied not ventilation, thus the recommendation is to still get a CT PE study once patient's gfr improves to >30. The patient underwent a CTA chest 03/25/24 that showed a rare finding of pulmonary vein thr ombosis as well as chronic pneumonic infiltrates and small subpleural opacities. echocardiogram 03/23 showed increased work of right ventricle and hyperdynamic left ventricle. EF > 70%, with normal left ventricular wall motion. Grade 1 diastolic dysfunction with mildly dilated right ventricle. These findings were explained to the patient as well as a potential plan. Patient is agreeable to therapy and subsequent imaging. Patient denies having any questions or concerns at this time. Physical Exam Physical Exam: General: patient resting comfortably, NAD, non-toxic in appearance, answers questions appropriately. Skin: warm, dry, intact HEENT: NC/AT, anicteric sclera, conjunctiva without injection, moist mucus membranes Heart: +S1/S2, regular, no m/r/g Lungs: equal air entry bilaterally, no rales/rhonchi/wheezes Abd: +BS, soft, NT/ND Ext: warm, no clubbing/cyanosis or edema Neuro: nonfocal, patient AA&O x 4, speech intact, no facial droop, moving all extremities on command. Results & Data Results & Data Vital Signs (Past 12 Hours) Vital Signs Temp Pulse Pulse Resp BP Pulse Ox O2 Del Method 03/26/24 11:30 36.3 C L 94 H 18 118/73 96 Nasal Cannula 03/26/24 09:04 03/26/24 08:35 69 03/26/24 07:54 36.4 C L 83 18 163/98 H 95 Nasal Cannula 03/26/24 02:54 36.4 C L 78 18 143/83 H 95 Nasal Cannula O2 Flow Rate 03/26/24 11:30 2 03/26/24 09:04 2 03/26/24 08:35 03/26/24 07:54 2 03/26/24 02:54 2 Resident Activity Tracking Resident Involvement: Resident Care Provided Care Provided: Adult Hospital Medicine (3) COPD (chronic obstructive pulmonary disease) COPD type: unspecified COPD Qualified Code(s): J44.9 - Chronic obstructive pulmonary disease, unspecified (5) Hypertension Hypertension type: unspecified Qualified Code(s): I10 - Essential (primary) hypertension (6) Leukocytosis Leukocytosis type: bandemia Qualified Code(s): D72.825 - Bandemia
--- NOTE | 2024-03-26 17:28 | Discharge Summary ---
Date of Service March 26, 2024 Admission HPI Per Admitting Provider Fan Prather is an 78yo male with history of COPD, HTN, HOP presenting from [facility] with complaint of generalized weakness, chills and shortness of breath. Patient reports not feeling well for the last several days. He has had a poor appetite with decreased oral intake. He has had nausea with several episodes of vomiting, chills, generalized weakness, shortness of breath, cough productive for clear sputum as well as rapid heart rate. He has been having a difficult time urinating over the last several days as well. He reports that he feels like he needs to pee but sometimes cannot do it. He denies chest pain, abdominal pain, diarrhea. Per outside records - patient has been having rapid heart rate of 130-160 prior to arrival In the ER he is afebrile, tachycardic - appears to be ST on monitor, HR of 115bpm Bladder scan performed with 868mL present ER Course: NSS x 1L Montanez ordered Principal Diagnosis Pulmonary venous thrombosis Discharge Exam General: patient resting comfortably, NAD, non-toxic in appearance, answers questions appropriately. Skin: warm, dry, intact HEENT: NC/AT, anicteric sclera, conjunctiva without injection, moist mucus membranes. Heart: +S1/S2, regular, no m/r/g Lungs: equal air entry bilaterally, no rales/rhonchi/wheezes Abd: +BS, soft, NT/ND Ext: warm, no clubbing/cyanosis or edema Neuro: nonfocal, speech intact, no facial droop, moving all extremities. Discharge Data Allergies Allergy/AdvReac Type Severity Reaction Status Date / Time No Known Allergies Allergy Verified 03/22/24 02:16 Consultations 03/22/24 05:10 ED Decision to Admit Stat Ordered Studies 03/22/24 11:04 US Kidney Bladder [US renal/blad retro comp] Routine 03/22/24 21:02 US venous doppler LE BI Urgent 03/25/24 17:51 CT angio chest PE protocol Urgent Laboratory Results WBC 10.77 K/ul (4.8-10.8) 03/26/24 09:34 RBC 4.57 M/uL (4.70-6.10) L 03/26/24 09:34 Hgb 14.4 g/dl (14.0-18.0) 03/26/24 09:34 Hct 44.0 % (42.0-52.0) 03/26/24 09:34 MCV 96.3 fL (80.0-100.0) 03/26/24 09:34 MCH 31.5 pg (25.0-34.0) 03/26/24 09:34 MCHC 32.7 g/dL (32.0-36.0) 03/26/24 09:34 RDW Std Deviation 45.1 fL (36.4-46.3) 03/26/24 09:34 RDW Coeff of Yoandy 12.7 % (11.5-14.5) 03/26/24 09:34 Plt Count 141 K/uL (130-400) 03/26/24 09:34 MPV 11.5 fL (9.4-12.4) 03/26/24 09:34 Immature Gran % (Auto) 0.6 % 03/26/24 09:34 Neut % (Auto) 67.9 % 03/26/24 09:34 Lymph % (Auto) 19.4 % 03/26/24 09:34 [place] % (Auto) 10.3 % 03/26/24 09:34 Eos % (Auto) 1.3 % 03/26/24 09:34 Baso % (Auto) 0.5 % 03/26/24 09:34 Neut # (Auto) 7.31 K/uL (1.40-6.50) H 03/26/24 09:34 Lymph # (Auto) 2.09 K/uL (1.20-3.40) 03/26/24 09:34 [place] # (Auto) 1.11 K/uL (0.11-0.59) H 03/26/24 09:34 Eos # (Auto) 0.14 K/uL (0.00-0.50) 03/26/24 09:34 Baso # (Auto) 0.05 K/uL (0.00-0.20) 03/26/24 09:34 Immature Gran # (Auto) 0.07 K/uL (0.01-0.20) 03/26/24 09:34 PT 12.2 Seconds (9.0-12.0) H 03/25/24 05:32 INR 1.1 (0.9-1.1) 03/25/24 05:32 APTT 29 Seconds (21-31) 03/22/24 04:03 PTT Ratio 1.1 03/22/24 04:03 D-Dimer 3880 ug/L FEU (0-500) H* 03/22/24 19:22 Heparin Anti-Xa, Unfract 0.41 IU/ml (0.3-0.7) 03/26/24 05:46 Sodium 144 mmol/L (136-145) 03/26/24 09:34 Potassium 3.3 mmol/L (3.5-5.1) L 03/26/24 09:34 Chloride 105 mmol/L (98-107) 03/26/24 09:34 Carbon Dioxide 31 mmol/L (21-32) 03/26/24 09:34 Anion Gap 8 (3-11) 03/26/24 09:34 BUN 36 mg/dl (6-23) H 03/26/24 09:34 Creatinine 1.78 mg/dl (0.6-1.4) H 03/26/24 09:34 Est Cr Clr Drug Dosing 27.0 ml/min 03/26/24 09:34 Est GFR ( Amer) 40.8 ml/min 03/26/24 09:34 Est GFR (Non-Af Amer) 35.2 ml/min 03/26/24 09:34 BUN/Creatinine Ratio 20.2 (10-20) H 03/26/24 09:34 Glucose 121 mg/dl (70-99(Fasting)) H 03/26/24 09:34 POC Glucose 97 mg/dl (70-99) 03/24/24 08:17 Estimat Average Glucose 120 mg/dl 03/22/24 07:47 Hemoglobin A1c 5.8 % (4.5-5.6) H 03/22/24 07:47 Osmolality 314 mOsm/kg (280-300) H 03/22/24 07:47 Lactate 1.9 mmol/L (0.4-2.0) 03/22/24 04:03 Calcium 9.1 mg/dl (8.6-10.3) 03/26/24 09:34 Phosphorus 3.7 mg/dl (2.5-4.9) 03/22/24 07:47 Magnesium 2.1 mg/dl (1.7-2.4) 03/22/24 07:47 Total Bilirubin 0.6 mg/dl (0.2-1.0) 03/26/24 09:34 AST 17 U/L (13-39) 03/26/24 09:34 ALT 11 U/L (7-52) 03/26/24 09:34 Alkaline Phosphatase 46 U/L (34-104) 03/26/24 09:34 Troponin I High Sens 73.6 pg/ml (0-20) H* D 03/23/24 14:14 Total Protein 6.4 gm/dl (6.0-8.3) 03/26/24 09:34 Albumin 3.5 gm/dl (3.4-5.0) 03/26/24 09:34 Globulin 2.9 gm/dl (2.5-4.0) 03/26/24 09:34 Albumin/Globulin Ratio 1.2 (0.9-2) 03/26/24 09:34 Lipase 3 U/L (11-82) L 03/22/24 00:45 Procalcitonin 0.06 ng/ml (0-0.5) 03/22/24 11:14 TSH 0.871 uIu/ml (0.300-4.500) 03/22/24 07:47 Urine Color [place] 03/23/24 13:05 Urine Appearance Clear (Clear) 03/23/24 13:05 Urine pH 6.0 (4.5-7.5) 03/23/24 13:05 Ur Specific [place] 1.009 (1.000-1.030) 03/23/24 13:05 Urine Protein 1+ (Negative) H 03/23/24 13:05 Urine Glucose (UA) Negative (Negative) 03/23/24 13:05 Urine Ketones Negative (Negative) 03/23/24 13:05 Urine Blood 3+ (Negative) H 03/23/24 13:05 Urine Nitrite Negative (Negative) 03/23/24 13:05 Urine Bilirubin Negative (Negative) 03/23/24 13:05 Urine Urobilinogen Negative (Negative) 03/23/24 13:05 Ur Leukocyte Esterase 1+ (Negative) H 03/23/24 13:05 Urine WBC (Auto) 11-20 /hpf (0-5) H 03/23/24 13:05 Urine RBC (Auto) >20 /hpf (0-2) H 03/23/24 13:05 U Hyaline Cast (Auto) 0-2 /lpf (0-2) 03/23/24 13:05 U Epithel Cells (Auto) 0-2 /hpf (0-2) 03/23/24 13:05 Urine Bacteria (Auto) None Seen (None Seen) 03/23/24 13:05 Theophylline 33.2 mg/L (10.0-20.0) H 03/22/24 07:47 Adenovirus (PCR) Not Detected (NotDetected) 03/22/24 Unknown B. pertussis DNA (PCR) Not Detected (NotDetected) 03/22/24 Unknown B.parapertussis DNA PCR Not Detected (NotDetected) 03/22/24 Unknown C. pneumoniae DNA (PCR) Not Detected (NotDetected) 03/22/24 Unknown Coronavirus OC43 (PCR) Not Detected (NotDetected) 03/22/24 Unknown Coronavirus HKU1 (PCR) Not Detected (NotDetected) 03/22/24 Unknown Coronavirus 229E (PCR) Not Detected (NotDetected) 03/22/24 Unknown SARS-CoV-2 (PCR) Not Detected (NotDetected) 03/22/24 Unknown Coronavirus NL63 (PCR) Not Detected (NotDetected) 03/22/24 Unknown Human Metapneumovir PCR Not Detected (NotDetected) 03/22/24 Unknown Influenza Type A (PCR) Not Detected (NotDetected) 03/22/24 Unknown Influenza Type B (PCR) Not Detected (NotDetected) 03/22/24 Unknown M. pneumoniae (PCR) Not Detected (NotDetected) 03/22/24 Unknown Parainfluenza 1 (PCR) Not Detected (NotDetected) 03/22/24 Unknown Parainfluenza 2 (PCR) Not Detected (NotDetected) 03/22/24 Unknown Parainfluenza 3 (PCR) Not Detected (NotDetected) 03/22/24 Unknown Parainfluenza 4 (PCR) Not Detected (NotDetected) 03/22/24 Unknown RSV (PCR) Not Detected (NotDetected) 03/22/24 Unknown Entero/Rhino (PCR) Not Detected (NotDetected) 03/22/24 Unknown Impressions Chest X-Ray 03/22/24 02:24 XR chest 1V portable CLINICAL HISTORY: Chest pain, nonspecific TECHNIQUE: Single frontal radiograph of the chest was obtained. Comparison: Comparison is made to chest radiograph 06/22/2023 FINDINGS: No lines and tubes are seen. Calcified aortic knob is seen. Reticular interstitial opacities are seen. No evidence of pleural effusion or pneumothorax. IMPRESSION: Interstitial thickening without superimposed aspiration/pneumonia. ACT 112: Negative or not required by law. Electronically signed by: Rubén Ray M.D. 03/22/2024 9:06 AM Renal Ultrasound 03/22/24 11:04 US renal/blad retro comp CLINICAL HISTORY: obstructive renal failure TECHNIQUE: Multiple sonographic real-time images of the kidneys and bladder were obtained. COMPARISON: Comparison is made to CT abdomen pelvis 02/11/2015 FINDINGS: The right kidney measures 11.3 cm in length, and the left kidney measures 8.1 cm in length. The right kidney is normal in size, contour, cortical thickness, and echogenicity. No hydronephrosis is identified. No renal lesion is identified. The left kidney is diminutive in size with cortical thinning noted. No hydronephrosis is identified. No renal lesion is identified. A Montanez catheter is seen in the collapsed bladder. No large intraluminal mass is seen. IMPRESSION: Diminutive left kidney without evidence of hydronephrosis or other acute abnormality. ACT 112: Negative or not required by law. Electronically signed by: Rubén Ray M.D. 03/22/2024 2:22 PM Venous Doppler Study 03/22/24 21:02 Exam(s): US VENOUS BILATERAL LOWER EXTREMITIES EXAM: US Duplex Bilateral Lower Extremities Veins CLINICAL HISTORY: Concern for deep vein thrombosis. TECHNIQUE: Real-time duplex ultrasound scan of the bilateral lower extremity veins integrating B-mode two-dimensional vascular structure, Doppler spectral analysis, color flow Doppler imaging and compression. COMPARISON: No relevant prior studies available. FINDINGS: Right deep veins: Unremarkable. No Deep vein thrombosis in the right common femoral, femoral, proximal deep femoral or popliteal veins. The veins demonstrate normal color flow, are normally compressible, with normal phasic flow and/or augmentation response. Right superficial veins: Unremarkable. No thrombus in the visualized right great saphenous vein. Left deep veins: Unremarkable. No Deep vein thrombosis in the left common femoral, femoral, proximal deep femoral or popliteal veins. The veins demonstrate normal color flow, are normally compressible, with normal phasic flow and/or augmentation response. Left superficial veins: Unremarkable. No thrombus in the visualized left great saphenous vein. Soft tissues: No acute findings. No popliteal cyst. IMPRESSION: No deep vein thrombosis of either lower extremity. Electronically signed by: Jennie Cheng MD 03/23/24 00:43 AM Pulmonary Perfusion Imaging 03/25/24 14:22 NUCLEAR MEDICINE PERFUSION SCAN CLINICAL HISTORY: Concern for Pulmonary Embolism COMPARISON STUDY: Chest CT June 22, 2023. Chest radiograph March 22, 2024. TECHNIQUE: Nuclear medicine perfusion study was performed following intravenous injection of 5 mCi of technetium 99m MAA at 8:28 AM on March 25, 2024. Following radiotracer injection, imaging of the chest was performed in multiple projecti ons. No ventilation was performed given ventilation precautions. FINDINGS: Heterogeneous perfusion to both lungs is noted. There is relatively diminished perfusion to both upper lobes, likely related to emphysema. No areas of abnormal radiotracer uptake are identified. IMPRESSION: Heterogeneous perfusion to both lungs with relatively diminished perfusion to the upper lobes, likely related to emphysema. Given lack of ventilation imaging, this study is considered indeterminate/intermediate probability for pulmonary embolus. If possible, CT chest PE protocol is recommended. ACT 112: Negative or not required by law. Electronically signed by: Maxx Morris M.D. 03/25/2024 8:38 AM Chest CTA 03/25/24 17:51 Exam(s): CTA CHEST IV Amt: 116 ml optiray 320 EXAM: CT Angiography Chest With Intravenous Contrast CLINICAL HISTORY: Reason for exam: PE. TECHNIQUE: Axial computed tomographic angiography images of the chest with intravenous contrast. CTDI is 16 mGy and DLP is 589 mGy-cm. Automated exposure control was utilized for the study. A dose lowering technique was utilized adhering to the principles of ALARA. MIP reconstructed images were created and reviewed. COMPARISON: CTA chest: 06/22/2023 FINDINGS: Motion-induced image degradation. Pulmonary arteries: Unremarkable. No pulmonary embolism. There is a left lower pulmonary vein thrombosis (series 2 image 64), new since prior comparison, is a rare clinical finding, that is potentially life-threatening. Aorta: Diffuse calcified atherosclerotic plaques. Mild 4.2 cm aneurysm of the ascending aorta. Lungs: Central airways are patent. Diffuse bronchial wall thickening/mild/moderate tubular bronchiectasis. Moderately severe centrilobular emphysema. Biapical pleural-parenchymal thickening/scarring. Chronic pneumonic infiltrates and small subpleural opacities remain in the posterior right lower lobe with interval improvement. In the left lower lobe posteriorly subpleural new mild interstitial infiltrates are seen. No suspicious pulmonary mass identified. Pleural space: Posteriorly mild pleural thickening. No significant effusion. No pneumothorax. An elevated left hemidiaphragm. Heart: Unremarkable. No cardiomegaly. No significant pericardial effusion. No evidence of RV dysfunction. Bones/joints: No acute fracture. No dislocation. Degenerative spondylosis. Increased thoracic kyphosis. Soft tissues: Unremarkable. Lymph nodes: A right paraesophageal 6 mm round calcified lymph node. No enlarged lymph nodes/no lymphadenopathy by CT size criteria.. Other findings: A distended stomach filled with ingested food debris, fluid and gas.. IMPRESSION: No pulmonary embolism. Left lower pulmonary vein thrombosis is new since prior, a rare clinical finding. Recommend clinical correlation/follow-up. A 4.2 cm ascending aortic aneurysm. Moderately severe centrilobular pulmonary emphysema. Bilateral bronchial wall thickening and mild central tubular bronchiectasis. Residual left lower lobe pneumonic infiltrates, subpleural small opacities remain with interval improvement. Left lower lobe posteriorly subpleural mild new interstitial infiltrates. Electronically signed by: Kellie Stewart MD, CARMEN 03/25/24 20:27 PM Hospital Course (1) Pulmonary venous thrombosis: Had a CTA chest due to an elevated D-dimer of 3880, sinus tachycardia, negative DVT studies, negative v/q scan. CTA chest showed a rare finding of pulmonary vein thrombosis as well - Patient has been on heparin 500mls q24h drip for anticoagulation - Limited literature on PVTs and management, but will transition to care home anticoagulation- Has been on heparin gtt transitioned to Eliquis- first dose this evening. Should be on 10mg BID x 7 days and then transitioned to 5mg BID - recommend follow up CTA chest in 3 months to monitor PVT, can f/u with p ulmonology - pulmonary venous thrombosis can be associated with malignancy so if not up to date on cancer screening should consider (2) Tachycardia: - Patient denies chest pain/pressure/palpitation. Last troponin 73.6 on 8/4 - echocardiogram from this morning shows mild dilation and decreased RV systolic function and hyperdynamic LV, which could suggest obstruction in pulmonary vasculature, considering PE - holding off on CT pulmonary angiogram until BUN and Cr downtrend, and eGFR > 30 currently 28.5 - Nuclear medicine v/q scan performed with only perfusion, no evidence of PE but recommendation is a CT PE as ventilation portion was not done - otherwise, suspect demand ischemia in setting of reported hypotension and decreased clearance secondary to ANTHONY - Telemetry monitoring (3) ANTHONY (acute kidney injury): - BUN and Creatinine remain elevated. Creatinine slightly improved to 2.12 today. BUN continues to increase and is 40 today. Urine continuing to drain into Montanez well, about 2750 cc yellow-clear urine. - anion gap is 8 - Potassium decreased to 3.1, replacement therapy: 40 meq PO 8 am, second 40 meq PO dose at 3 pm - ordered fluids, 2L lactated ringers @ 100 ml/hr to improve renal function - Maintain Motnanez catheter - Monitor strict I/Os - BMP q 12 hours to monitor renal function and electrolytes - Hold HCTZ and Lisinopril - Avoid nephrotoxic agents (4) COPD (chronic obstructive pulmonary disease): - Still having mild SOB and cough normal for patient - Patient O2 97% on 2L O2 via nasal cannula - Continue Albuterol prn - Continue Trelegy once daily - Continue Theophylline 300mg PO TID - check level - Continue Singulair once daily - DuoNeb q4h prn - continue Unasyn 3000mg q12 IV Total Time Total Time Spent Total Time Spent (In Minutes): 52 minutes Total Time Includes: Examination of the Patient, Discharge Planning, Medication Reconciliation, Communication With Other Providers and Other Discharge Plan Discharge Items [facility] Reason For Visit: fatigue, shortness of breath, loss of appetite Discharge Diagnosis: Pulmonary Venous Thrombosis Condition on Discharge: Fair Activity: Per Instructions section Non-emergency contact: Primary Care Provider and Geophysical Observer Call non-emergency contact if: you have any medication questions and your symptoms worsen Follow-up/Referrals: Chester MCCOY [Primary Care Provider] - Diet: Regular Addtl Attending Provider Instructions: Pulmonary venous thrombosis: Had a CTA chest due to an elevated D-dimer of 3880, sinus tachycardia, negative DVT studies, negative v/q scan. CTA chest showed a rare finding of pulmonary vein thrombosis as well - Patient has been on heparin 500mls q24h drip for anticoagulation - Limited literature on PVTs and management, but will transition to care home anticoagulation- Has been on heparin gtt transitioned to Eliquis- first dose this evening. Should be on 10mg BID x 7 days and then transitioned to 5mg BID - recommend follow up CTA chest in 3 months to monitor PVT, can f/u with pulmonology - pulmonary venous thrombosis can be associated with malignancy so if not up to date on cancer screening should consider PNA Noted on CTA- right lower lobe chronic pneumonic infiltrates and small subpleural opacities with interval improvement. In left lower lobe there are posterior subpleural mild new interstitial infiltrates - initially treated with Unasyn as had leukocytosis with a negative CXR and no clear source of infection - Transitioned to levofloxacin, given history of pseudomonas. Plan for total course of antibiotics of 10 days, should get an additional 8 days of antibiotics - requiring 2L O2-> wean as tolerated ANTHONY (acute kidney injury): - Obstructive neuropathy, Montanez placed - creatine has been trending down with insertion of Montanez and IVF - Creatine today= 1.78 - would continue to trend creatine, once back to baseline would consider trial of voiding - Hold HCTZ and Lisinopril COPD (chronic obstructive pulmonary disease): - No signs of acute exacerbation - Continue Albuterol prn - Continue Trelegy once daily - Continue Theophylline 300mg PO TID - check level - Continue Singulair once daily Elevated troponin: - Noted on admission, likely demand in the setting of pulmonary venous thr ombosis - echocardiogram from this morning shows mild dilation and decreased RV systolic function and hyperdynamic LV-> in the setting of acute pulmonary venous thrombosis; has been hemodynamically stable -has been hemodynamically stable Hypertension: - BP has been systolic 130s to 140s over diastolic 70s to 80s - continue to hold HCTZ and lisinopril Pending Studies at Discharge: No Stand-Alone Forms: My [facility] [employer] Skilled Items Patient informed of condition?: Yes Discharge Level of Care: Other Communicable Disease: No Discharge Prognosis: Stable Lines: None Urinary Catheter: Yes Medications and DC Order Prescriptions: New Eliquis 5 mg Tablet 10 mg PO Q12H 30 Days Qty: 42 0RF Rx Instructions: 10mg BID x 7 days, 5mg BID after Continued theophylline 300 mg Tablet Extended Release 12 Hr 300 mg PO TID pantoprazole 40 mg Tablet,Delayed Release (Dr/Ec) 40 mg PO QAM montelukast 10 mg Tablet 10 mg PO QAM lovastatin 20 mg Tablet 20 mg PO PM albuterol sulfate 90 mcg/actuation Hfa Aerosol Inhaler 2 puff INHALATION QID PRN (Reason: Shortness Of Breath) Ocuvite with Lutein 300 mcg-200 mg-27 mg-2 mg Tablet 1 tab PO DAILY Rx Instructions: administer after a meal Trelegy Ellipta 100-62.5-25 mcg Blister With Device 1 inh INHALATION DAILY PRN (Reason: Shortness Of Breath Or Wheezing) nystatin 100,000 unit/mL Suspension 0 ml mucous membrane QID Rx Instructions: SWISH AND SWALLOW. administer 1/2 of dose in each side of the mouth levofloxacin 750 mg Tablet 750 mg PO DAILY 7 Days Qty: 7 0RF Rx Instructions: COURSE ENDS 03/25/24. Held lisinopril 20 mg Tablet 20 mg PO QAM Hold Instructions: Once creatine at baseline and blood pressure can tolerate hydrochlorothiazide 25 mg Tablet 25 mg PO QAM Hold Instructions: Once creatine at baseline and blood pressure can tolerate Discharge Orders: Discharge Order (Routine); Ordered 03/26/24 Ordered By: Latricia Morris Admission Data Admit Date/Time: 03/22/24 05:21 Attending Provider: Nuria Lester Admit Provider: Claudia Sanchez Primary Care Provider: Chester MCCOY Other Providers: Claudia Sanchez Other Interventions: Discharge Summary Assessment (RN) Last Done: 03/26/24 17:37 Supervising Physician Co-Signing Physician Notes I personally examined the patient and verified valdes points of history and exam, discussed case, and agree with decision making and plan documented by Dr. Best. CTA performed and pulmonary vein thrombosis identified. Will transition patient to [facility], treat for 3 months and recommend follow-up CTA. Reviewed with patient the importance of fall prevention as he is at an increased bleeding risk. Residual left lower lobe infiltrates remain, will complete antibiotic course with levofloxacin. Patient discharged back to [facility]. Resident Activity Tracking Resident Involvement: Resident Care Provided Care Provided: Adult Hospital Medicine
[2024-03-26 17:38] VITALS: PULSE 94
[2024-03-26] MEDS: APIXABAN 5 MG TABLET PO SCH (18:19)
== END 2024-03-26 20:08 | DRG 682 ==
LOC: SUATTDRO → ED 00:38 → EDINP 05:21 → SUATTDRO 05:21 → 2W 07:34

== ENCOUNTER 2024-04-12 16:30 | Inpatient (IN) ==
[2024-04-12 16:53] LABS: Basophils # (auto) 0.03 K/uL (0.00-0.20); Basophils % (auto) 0.1 %; Eosinophils # (auto) 0.01 K/uL (0.00-0.50); Hematocrit (blood only) 40.7 % (42.0-52.0); Hemoglobin 13.3 g/dl (14.0-18.0); Immature Granulocytes # (auto) 0.14 K/uL (0.01-0.20); Immature Granulocytes % (auto) 0.7 %; Lymphocytes # (auto) 2.38 K/uL (1.20-3.40); Lymphocytes % (auto) 11.5 %; Mean Corpuscular Hemoglobin 31.9 pg (25.0-34.0); Mean Corpuscular Hgb Conc 32.7 g/dL (32.0-36.0); Mean Corpuscular Volume 97.6 fL (80.0-100.0); Mean Platelet Volume 10.4 fL (9.4-12.4); Monocytes # (auto) 2.45 K/uL (0.11-0.59); Monocytes % (auto) 11.9 %; Neutrophils # (auto) 15.64 K/uL (1.40-6.50); Neutrophils % (auto) 75.8 %; Platelet Count 272 K/uL (130-400); RDW Coefficient of Variation 12.6 % (11.5-14.5); RDW Standard Deviation 45.6 fL (36.4-46.3); Red Blood Count 4.17 M/uL (4.70-6.10); White Blood Count 20.65 K/ul (4.8-10.8)
[2024-04-12 16:56] LABS: iSTAT Creatinine 4.2 mg/dl (0.6-1.3); iSTAT Hemoglobin 13.6 g/dl (14.0-18.0); iSTAT Ionized Calcium 1.1 mmol/l (1.12-1.32); iSTAT Potassium 4.6 mmol/L (3.3-5.0)
[2024-04-12] MEDS: SODIUM CHLORIDE 0.9% 500 ML IV ONE ×2 (17:04→18:00)
[2024-04-12] MEDS: cefTRIAXone SODIUM 2,000 MG/50 ML BAG IV STA (17:04)
[2024-04-12 17:06] LABS: INR 1.1 (0.9-1.1); Partial Thromboplastin Ratio 1.2; Partial Thromboplastin Time 33 Seconds (21-31); Prothrombin Time 11.5 Seconds (9.0-12.0)
[2024-04-12] MEDS: PANTOprazole 80 MG in DEXTROSE 5% 100 ML IV ONE (17:08)
[2024-04-12] MEDS: PANTOPRAZOLE BOLUS/DRIP IV STA (17:10)
[2024-04-12 17:14] LABS: Alanine Aminotransferase 7 U/L (7-52); Albumin Globulin Ratio 1.2 (0.9-2); Albumin Level 3.9 gm/dl (3.4-5.0); Alkaline Phosphatase 64 U/L (34-104); Anion Gap 10 (3-11); Aspartate Aminotransferase 13 U/L (13-39); BUN Creatinine Ratio 15.7 (10-20); Bilirubin,Total 0.9 mg/dl (0.2-1.0); Blood Urea Nitrogen 61 mg/dl (6-23); Calcium 9.4 mg/dl (8.6-10.3); Carbon Dioxide 27 mmol/L (21-32); Chloride 98 mmol/L (98-107); Est GFR (African American) 15.9 ml/min; Est GFR (Non-African American) 13.7 ml/min; Globulin 3.2 gm/dl (2.5-4.0); Glucose 125 mg/dl (70-99(Fasting)); Lipase 17 U/L (11-82); Potassium 4.6 mmol/L (3.5-5.1); Sodium 135 mmol/L (136-145); Total Protein 7.1 gm/dl (6.0-8.3)
--- NOTE | 2024-04-12 17:38 | Emergency Department Note ---
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 Started with some trace bleeding last night according the patient but did eat well yesterday. Not eating much today and had bloody bowel movements at the longterm. Blood pressure was low at the presented for EMS and brought here for further evaluation. 250mL IVF for EMS. Patient denies any pain. Denies chest pain, abdominal pain, or palpitations. Little bit weak and cannot ambulate real well. States he did have his morning medications including his Eliquis. Evidently did have abdominal aortic graft repair in the past. 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 There is red blood in depends on the patient small amount without large clots. Head: normocephalic and atraumatic EYES: No injection, discharge or icterus. NECK: Trachea midline. ENT: Mucous membranes pink and moist. LUNGS: Airway patent. No retractions. Breath sounds clear HEART: Regular rate and rhythm. No chest wall tenderness ABDOMEN: Soft and non-tender, without guarding or rebound. No appreciable masses SKIN: Acyanotic, warm, dry, without rashes EXTREMITIES: Without swelling, tenderness or deformity NEUROLOGICAL: No focal deficits. No aphasia. No facial droop or slurred speech. EK bpm sinus tachycardia with what appears to be PACs. No acute ST segment elevation or depression with right axis. QTc 446. CONTINUOUS CARDIAC MONITORING: was ordered and showed a heart rate of 100s bpm in sinus tachycardia to 90s normal sinus rhythm Patient's laboratory studies and imaging reviewed. Differential includes Diverticulosis, AVM, coagulopathy, colitis, inflammatory bowel disease, malignancy, Dulce-Cabrera tear, esophagitis, peptic ulcer disease, variceal bleed, gastritis, epistaxis, fissure, hemorrhoids, as well as other pathologies. IMPRESSION/MEDICAL DECISION MAKING: Patient presents for low blood pressure on Eliquis with rectal bleeding. Obvious concern for possible significant GI bleed. Does report a distant history of gastric ulcer. Benign abdomen on exam. Given some IV fluid here. Given Protonix bolus and drip. Recently uncrossed blood from the blood bank was called to come to the ER given the report. Upon arrival he does not appear in distress although his blood pressures is somewhat tenuous. Large-bore IVs obtained. [id number] blood work however does appear to show a hemoglobin of 13. At this time while the first uncrossed match unit was being spiked it was not administered given this is I now feel this is not so much anemia/GI bleed related. Patient was consented for blood however in any case and type and screen sent. Formal blood work does confirm a hemoglobin of 13. New leukocytosis of over 20 is noted here today. Will empirically cover with ceftriaxone for possible GI bleed along with any possible infection. CT noncontrast the abdomen pelvis will be completed and significantly worsened renal function creatinine 3.89 today from his regular baseline is notable. BUN mildly elevated at 61. Question how much of this could be a sepsis and dehydration picture versus strict GI bleed. No evidence of acute hepatitis or pancreatitis. Troponin not severely elevated. Does not appear to be in rapid A-fib at this point. Mentating okay with maps of about 60. Given a 1.5 Ls of IV fluid. CT abdomen pelvis per radiology shows a nonspecific proctitis with rectosigmoid fecal impaction and some constipation. No acute diverticulitis noted or perforation. Patient likely some inflammation of the rectal proctoscopy region and again covered with antibiotics. Given IV fluids. Will broaden to Zosyn for anaerobic coverage with the evidence of proctocolitis as well as further review of prior microbiology showing he did have Pseudomonas in the past. Likely need some bowel regimen with the stool burden on the imaging. Blood pressure is improving here into the 110s systolic on reassessment. Will bring in for further monitoring and the hospitalist was consulted. DIAGNOSIS: Proctitis, sepsis, constipation, ANTHONY, rectal bleeding DISPOSITION: Hospitalist will evaluate Patient was agreeable with this plan. Critical Care I have personally spent 48 minutes of critical care time in the direct management of this patient. This includes bedside care, interpretation of diagnostic studies, and testing, discussion with consultants, patient, and other required patient management activities. These 48 minutes is in excess of all separately billable procedures. Past Med/Surg History Problem List (Updated 04/12/24 @ 19:30 by Suleman Islas M.D.) Proctitis (Acute) Acute kidney injury superimposed on CKD (Acute) Rectal bleed (Acute) Pulmonary venous thrombosis Elevated d-dimer Tachycardia (Acute) Hyperglycemia Weakness (Acute) ANTHONY (acute kidney injury) (Acute) Gram-negative bacteremia Elevated troponin (Chronic) Leukocytosis (Acute) Pneumonia (Acute) COPD (chronic obstructive pulmonary disease) (Acute) Sepsis (Acute) Pneumonia Acute upper GI hemorrhage Hemorrhagic shock Hypotension Medical History (Updated 04/12/24 @ 19:30 by Suleman Islas M.D.) GERD (gastroesophageal reflux disease) Hyperlipidemia Hypertension COPD (chronic obstructive pulmonary disease) Aortic aneurysm UNSPECIFIED PER MEDICAL RECORD Surgical History History of cataract surgery RT H/O aortic aneurysm repair Social History Smoking Status: Former smoker Tobacco Type: Cigarettes Cigarettes Per Day: SMOKED 1 PPD X 60 YRS; Hx Alcohol Use: No Hx Substance Use: No Preferred Language: Stateless Communication Ability: Effective Endocrinology Physician Required: No Beliefs That Will Affect Care: None Current Living Situation: Other Current Living Situation Comment: longterm Feels Safe at Home: Yes Assistive Devices: Glasses and Walker Allergies Allergies Allergy/AdvReac Type Severity Reaction Status Date / Time No Known Allergies Allergy Verified 03/22/24 02:16 Home Meds Home Medications Medication Instructions Recorded Confirmed lovastatin 20 mg tablet 20 mg PO PM 04/08/19 03/22/24 montelukast 10 mg tablet 10 mg PO QAM 04/08/19 03/22/24 pantoprazole 40 mg tablet,delayed 40 mg PO QAM 04/08/19 03/22/24 release theophylline 300 mg 300 mg PO TID 04/08/19 03/22/24 tablet,extended release,12 hr albuterol sulfate 90 mcg/actuation 2 puff inhalation QID PRN 06/22/23 03/22/24 aerosol inhaler Shortness Of Breath fluticasone fur. 100 mcg-umeclid 1 inh inhalation DAILY PRN 06/22/23 03/22/24 62.5 mcg-vilant 25 mcg Shortness Of Breath Or Wheezing inhalat.powder (Trelegy Ellipta) vit A 300 mcg-C 200 mg-E 27 1 tab PO DAILY 06/22/23 03/22/24 mg-lutein 2 mg and minerals tablet (Ocuvite with Lutein) hydrochlorothiazide 25 mg tablet 25 mg PO QAM 03/22/24 03/22/24 lisinopril 20 mg tablet 20 mg PO QAM 03/22/24 03/22/24 nystatin 100,000 unit/mL oral 0 ml mucous membrane QID 03/22/24 03/22/24 suspension Previous Rx's Medication Instructions Recorded apixaban 5 mg tablet (Eliquis) 10 mg (2 x 5 mg) PO Q12H 30 days 03/26/24 #42 tabs levofloxacin 750 mg tablet 750 mg PO DAILY 7 days #7 tabs 03/26/24 Results & Data (ED) Vital Signs Vital Signs - 24 hr 04/12/24 16:53 04/12/24 17:14 04/12/24 17:14 Temperature 36.4 C L Temperature Source Oral Pulse Rate 101 H 96 H 96 H Pulse Rate [Apical] Pulse Rhythm Regular Respiratory Rate 22 24 24 Respiratory Effort / Characteristics Non-Labored Spontaneous Respiratory Depth Normal Respiratory Pattern Regular Blood Pressure 78/54 L 62/38 L Blood Pressure [Left Arm] Blood Pressure Mean 62 46 Blood Pressure Mean [Left Arm] Pulse Oximetry 92 94 94 Oxygen Delivery Method Nasal Cannula Nasal Cannula Oxygen Flow Rate 2 2 Sepsis Recent Fever Within 48 Hours No Sepsis New/Unexplained Change in Mental Status N/A Sepsis Action Taken by Nursing Physician Notified 04/12/24 17:15 04/12/24 17:37 04/12/24 17:46 Temperature Temperature Source Pulse Rate 100 H Pulse Rate [Apical] 98 H 97 H Pulse Rhythm Respiratory Rate 24 20 Respiratory Effort / Characteristics Respiratory Depth Respiratory Pattern Blood Pressure Blood Pressure [Left Arm] 96/59 L 79/55 L Blood Pressure Mean Blood Pressure Mean [Left Arm] 71 63 Pulse Oximetry 93 98 Oxygen Delivery Method Nasal Cannula Nasal Cannula Oxygen Flow Rate 2 2 Sepsis Recent Fever Within 48 Hours Sepsis New/Unexplained Change in Mental Status Sepsis Action Taken by Nursing 04/12/24 18:00 04/12/24 18:15 04/12/24 18:46 Temperature Temperature Source Pulse Rate Pulse Rate [Apical] 89 90 100 H Pulse Rhythm Respiratory Rate 22 22 22 Respiratory Effort / Characteristics Non-Labored Spontaneous Non-Labored Spontaneous Respiratory Depth Normal Normal Respiratory Pattern Blood Pressure Blood Pressure [Left Arm] 71/42 L 77/58 L 105/63 Blood Pressure Mean Blood Pressure Mean [Left Arm] 51 64 77 Pulse Oximetry 95 97 95 Oxygen Delivery Method Nasal Cannula Nasal Cannula Nasal Cannula Oxygen Flow Rate 2 2 2 Sepsis Recent Fever Within 48 Hours Sepsis New/Unexplained Change in Mental Status Sepsis Action Taken by Nursing 04/12/24 18:52 Temperature 36.5 C Temperature Source Oral Pulse Rate Pulse Rate [Apical] Pulse Rhythm Respiratory Rate Respiratory Effort / Characteristics Respiratory Depth Respiratory Pattern Blood Pressure Blood Pressure [Left Arm] Blood Pressure Mean Blood Pressure Mean [Left Arm] Pulse Oximetry Oxygen Delivery Method Oxygen Flow Rate Sepsis Recent Fever Within 48 Hours Sepsis New/Unexplained Change in Mental Status Sepsis Action Taken by Nursing Laboratory Data 04/12/24 16:42 04/12/24 16:42 Lab Results 04/12/24 04/12/24 04/12/24 Range/Units 16:42 16:48 17:26 WBC 20.65 H (4.8-10.8) K/ul RBC 4.17 L (4.70-6.10) M/uL Hgb 13.3 L (14.0-18.0) g/dl POC Hgb 13.6 L (14.0-18.0) g/dl Hct 40.7 L (42.0-52.0) % POC Hct 40 L (42-52) % MCV 97.6 (80.0-100.0) fL MCH 31.9 (25.0-34.0) pg MCHC 32.7 (32.0-36.0) g/dL RDW Std Deviation 45.6 (36.4-46.3) fL RDW Coeff of Yoandy 12.6 (11.5-14.5) % Plt Count 272 (130-400) K/uL MPV 10.4 (9.4-12.4) fL Immature Gran % (Auto) 0.7 % Neut % (Auto) 75.8 % Lymph % (Auto) 11.5 % [place] % (Auto) 11.9 % Eos % (Auto) 0.0 % Baso % (Auto) 0.1 % Neut # (Auto) 15.64 H (1.40-6.50) K/uL Lymph # (Auto) 2.38 (1.20-3.40) K/uL [place] # (Auto) 2.45 H (0.11-0.59) K/uL Eos # (Auto) 0.01 (0.00-0.50) K/uL Baso # (Auto) 0.03 (0.00-0.20) K/uL Immature Gran # (Auto) 0.14 (0.01-0.20) K/uL PT 11.5 (9.0-12.0) Seconds INR 1.1 (0.9-1.1) APTT 33 H (21-31) Seconds PTT Ratio 1.2 POC Sodium 135 (135-144) mmol/L Sodium 135 L (136-145) mmol/L POC Potassium 4.6 (3.3-5.0) mmol/L Potassium 4.6 (3.5-5.1) mmol/L POC Chloride 99 L (101-112) mmol/L Chloride 98 (98-107) mmol/L Carbon Dioxide 27 (21-32) mmol/L POC Total CO2 28 (24-31) mmol/L Anion Gap 10 (3-11) POC Anion Gap 14.0 L (16-25) mmol/L POC BUN 55 H (7-18) mg/dl BUN 61 H (6-23) mg/dl Creatinine 3.89 H (0.6-1.4) mg/dl POC Creatinine 4.2 H (0.6-1.3) mg/dl Est Cr Clr Drug Dosing Not Reportable Est GFR ( Amer) 15.9 ml/min Est GFR (Non-Af Amer) 13.7 ml/min BUN/Creatinine Ratio 15.7 (10-20) Glucose 125 H (70-99(Fasting)) mg/dl POC Glucose (other) 123 H (70-99) mg/dl Lactate 2.2 H* (0.4-2.0) mmol/L Calcium 9.4 (8.6-10.3) mg/dl POC Ioniz Calcium Riya 1.10 L (1.12-1.32) mmol/l Total Bilirubin 0.9 (0.2-1.0) mg/dl AST 13 (13-39) U/L ALT 7 (7-52) U/L Alkaline Phosphatase 64 (34-104) U/L Troponin I High Sens 23.0 H (0-20) pg/ml Total Protein 7.1 (6.0-8.3) gm/dl Albumin 3.9 (3.4-5.0) gm/dl Globulin 3.2 (2.5-4.0) gm/dl Albumin/Globulin Ratio 1.2 (0.9-2) Lipase 17 (11-82) U/L Procalcitonin 0.36 (0-0.5) ng/ml POC Stool Occult Blood Positive A (Negative) SARS-CoV-2, RNA, NAAT (NEGATIVE) Blood Type A Negative Antibody Screen NEGATIVE Crossmatch See Detail 04/12/24 Range/Units 17:41 WBC (4.8-10.8) K/ul RBC (4.70-6.10) M/uL Hgb (14.0-18.0) g/dl POC Hgb (14.0-18.0) g/dl Hct (42.0-52.0) % POC Hct (42-52) % MCV (80.0-100.0) fL MCH (25.0-34.0) pg MCHC (32.0-36.0) g/dL RDW Std Deviation (36.4-46.3) fL RDW Coeff of Yoandy (11.5-14.5) % Plt Count (130-400) K/uL MPV (9.4-12.4) fL Immature Gran % (Auto) % Neut % (Auto) % Lymph % (Auto) % [place] % (Auto) % Eos % (Auto) % Baso % (Auto) % Neut # (Auto) (1.40-6.50) K/uL Lymph # (Auto) (1.20-3.40) K/uL [place] # (Auto) (0.11-0.59) K/uL Eos # (Auto) (0.00-0.50) K/uL Baso # (Auto) (0.00-0.20) K/uL Immature Gran # (Auto) (0.01-0.20) K/uL PT (9.0-12.0) Seconds INR (0.9-1.1) APTT (21-31) Seconds PTT Ratio POC Sodium (135-144) mmol/L Sodium (136-145) mmol/L POC Potassium (3.3-5.0) mmol/L Potassium (3.5-5.1) mmol/L POC Chloride (101-112) mmol/L Chloride (98-107) mmol/L Carbon Dioxide (21-32) mmol/L POC Total CO2 (24-31) mmol/L Anion Gap (3-11) POC Anion Gap (16-25) mmol/L POC BUN (7-18) mg/dl BUN (6-23) mg/dl Creatinine (0.6-1.4) mg/dl POC Creatinine (0.6-1.3) mg/dl Est Cr Clr Drug Dosing Est GFR ( Amer) ml/min Est GFR (Non-Af Amer) ml/min BUN/Creatinine Ratio (10-20) Glucose (70-99(Fasting)) mg/dl POC Glucose (other) (70-99) mg/dl Lactate (0.4-2.0) mmol/L Calcium (8.6-10.3) mg/dl POC Ioniz Calcium Riya (1.12-1.32) mmol/l Total Bilirubin (0.2-1.0) mg/dl AST (13-39) U/L ALT (7-52) U/L Alkaline Phosphatase (34-104) U/L Troponin I High Sens (0-20) pg/ml Total Protein (6.0-8.3) gm/dl Albumin (3.4-5.0) gm/dl Globulin (2.5-4.0) gm/dl Albumin/Globulin Ratio (0.9-2) Lipase (11-82) U/L Procalcitonin (0-0.5) ng/ml POC Stool Occult Blood (Negative) SARS-CoV-2, RNA, NAAT NEGATIVE (NEGATIVE) Blood Type Antibody Screen Crossmatch Administered Medications Pantoprazole Sodium 40 mg/ (Dextrose) 100 mls @ 20 mls/hr IV Q5H SPRING Stop: 05/12/24 16:59 Last Admin: 04/12/24 17:43 Dose: 8 mg/hr, 20 mls/hr Documented By: OLAYINKA Discontinued Medications Pantoprazole Sodium 80 mg/ (Dextrose) 120 mls @ 480 mls/hr IV NOW ONE Stop: 04/12/24 16:51 Last Infusion: 04/12/24 17:34 Dose: Infused Documented By: Admin: 04/12/24 17:08 Dose: 480 mls/hr Documented By: OLAYINKA Sodium Chloride (Nss) 500 mls @ 999 mls/hr IV .Q31M ONE Stop: 04/12/24 17:17 Last Infusion: 04/12/24 17:36 Dose: Infused Documented By: Admin: 04/12/24 17:04 Dose: 999 mls/hr Documented By: OLAYINKA Ceftriaxone Sodium (Rocephin) 2,000 mg in 50 mls @ 100 mls/hr IV NOW STA Stop: 04/12/24 17:27 Last Infusion: 04/12/24 17:34 Dose: Infused Documented By: Admin: 04/12/24 17:04 Dose: 100 mls/hr Documented By: OLAYINKA Sodium Chloride (Nss) 500 mls @ 999 mls/hr IV .Q31M ONE Stop: 04/12/24 18:27 Last Infusion: 04/12/24 18:33 Dose: Infused Documented By: Admin: 04/12/24 18:00 Dose: 999 mls/hr Documented By: OLAYINKA Piperacillin Sod/Tazobactam Sod (Zosyn) 4.5 gm in 100 mls @ 200 mls/hr IV NOW ONE Stop: 04/12/24 18:49 Last Admin: 04/12/24 18:38 Dose: 200 mls/hr Documented By: OLAYINKA Lactated Ringer's (Lr) 500 mls @ 999 mls/hr IV .Q31M ONE Stop: 04/12/24 18:52 Last Infusion: 04/12/24 18:52 Dose: 0 mls/hr Documented By: Admin: 04/12/24 18:40 Dose: 999 mls/hr Documented By: OLAYINKA Pantoprazole Sodium (Pantoprazole Bolus/Drip) 1 each IV NOW STA Stop: 04/12/24 16:38 Last Admin: 04/12/24 17:10 Dose: Not Given Documented By: OLAYINKA Imaging Data Radiologist's Impression: Abdomen/Pelvis CT 04/12/24 16:59 CT SCAN OF THE ABDOMEN AND PELVIS WITHOUT IV CONTRAST CLINICAL HISTORY: Hematochezia. COMPARISON STUDY: Abdominal CT dated 02/11/2015. TECHNIQUE: CT scan of the abdomen and pelvis is performed from the lung bases to the proximal femora. Images are reviewed in the axial, sagittal, and coronal planes. IV contrast was not administered for this examination. A dose lowering technique was utilized adhering to the principles of ALARA. CT DOSE: 392.8 mGy.cm FINDINGS: Lung bases: The heart is normal in size and without pericardial effusion. Advanced emphysematous change is seen at the lung bases. There is bibasilar scarring/atelectasis. No airspace consolidation or pleural effusion is identified. Liver: The unenhanced liver is normal in size, contour, and attenuation. There is no intrahepatic biliary ductal dilatation. Gallbladder: Unremarkable. Spleen: Normal in size and attenuation. There are calcified splenic granulomas. Pancreas: The unenhanced pancreas is moderately atrophic and grossly unremarkable. Adrenal glands: Unremarkable. Kidneys: There is asymmetric cortical atrophy of the left kidney as compared to the right. No hydronephrosis is seen. No renal calculi are identified and no ureteral stone is seen. There is no evidence of contour deforming renal mass lesion. Abdominal vasculature: There is advanced atherosclerotic calcification of the abdominal aorta. There are overlapping stent graft within the abdominal aorta. The stent graft extends into the left iliac artery. The residual aneurysm sac measures up to 3.1 cm. A femorofemoral bypass is in place. Bowel: There is rectosigmoid fecal impaction and mild to moderate constipation. There is rectal wall thickening with perirectal infiltration consistent with a mild proctitis. No bowel obstruction is seen. There is moderate colonic diverticulosis without CT evidence of acute diverticulitis. The appendix is well-visualized and normal. Peritoneum: There is no intraperitoneal free air or abdominal ascites. There is fluid within the umbilicus. Lymphadenopathy: None. Pelvic viscera: The prostate gland is diminutive and heterogeneous. The bladder wall is thickened/trabeculated indicating chronic outlet obstruction. A small focus of gas within the bladder lumen is nonspecific and likely related to instrumentation. Skeletal structures: The skeletal structures are osteopenic. Moderate moderate lumbosacral spondylosis is observed. Bilateral pars defects are noted at L5 with minimal anterolisthesis at L5-S1. No lytic or blastic lesions are seen. IMPRESSION: 1. There is rectosigmoid fecal impaction and mild to moderate constipation. 2. There is evidence of a nonspecific proctitis, likely stercoral. Correlate clinically. 3. Colonic diverticulosis without CT evidence of acute diverticulitis. 4. Advanced emphysema. 5. Additional findings as above. ACT 112: Negative or not required by law. Electronically signed by: Yair Mason M.D. 04/12/2024 6:05 PM Discharge Plan Visit Data Chief Complaint: Rectal Bleed Stated Complaint: rectal bleed ED Provider: Suleman Islas Discharge Problem: Sepsis, Rectal bleed, Acute kidney injury superimposed on CKD, Proctitis Patient Disposition: Being Evaluated by Hospitalist Forms Stand Alone Forms: My [facility] Referrals Referrals: Chester MCCOY [Primary Care Provider] -
[2024-04-12] MEDS: PANTOprazole 40 MG in DEXTROSE 5% MINI-B 100 ML IV SCH (17:43)
--- NOTE | 2024-04-12 18:07 | CT Scan Report ---
CT SCAN OF THE ABDOMEN AND PELVIS WITHOUT IV CONTRAST CLINICAL HISTORY: Hematochezia. COMPARISON STUDY: Abdominal CT dated 02/11/2015. TECHNIQUE: CT scan of the abdomen and pelvis is performed from the lung bases to the proximal femora. Images are reviewed in the axial, sagittal, and coronal planes. IV contrast was not administered for this examination. A dose lowering technique was utilized adhering to the principles of ALARA. CT DOSE: 392.8 mGy.cm FINDINGS: Lung bases: The heart is normal in size and without pericardial effusion. Advanced emphysematous slater ge is seen at the lung bases. There is bibasilar scarring/atelectasis. No airspace consolidation or p leural effusion is identified. Liver: The unenhanced liver is normal in size, contour, and attenuation. There is no intrahepatic brenton iary ductal dilatation. Gallbladder: Unremarkable. Spleen: Normal in size and attenuation. There are calcified splenic granulomas. Pancreas: The unenhanced pancreas is moderately atrophic and grossly unremarkable. Adrenal glands: Unremarkable. Kidneys: There is asymmetric cortical atrophy of the left kidney as compared to the right. No hydrone phrosis is seen. No renal calculi are identified and no ureteral stone is seen. There is no evidence of contour deforming renal mass lesion. Abdominal vasculature: There is advanced atherosclerotic calcification of the abdominal aorta. There are overlapping stent graft within the abdominal aorta. The stent graft extends into the left iliac a rtery. The residual aneurysm sac measures up to 3.1 cm. A femorofemoral bypass is in place. Bowel: There is rectosigmoid fecal impaction and mild to moderate constipation. There is rectal wall thickening with perirectal infiltration consistent with a mild proctitis. No bowel obstruction is see n. There is moderate colonic diverticulosis without CT evidence of acute diverticulitis. The appendix is well-visualized and normal. Peritoneum: There is no intraperitoneal free air or abdominal ascites. There is fluid within the umbi licus. Lymphadenopathy: None. Pelvic viscera: The prostate gland is diminutive and heterogeneous. The bladder wall is thickened/tra beculated indicating chronic outlet obstruction. A small focus of gas within the bladder lumen is non specific and likely related to instrumentation. Skeletal structures: The skeletal structures are osteopenic. Moderate moderate lumbosacral spondylosi s is observed. Bilateral pars defects are noted at L5 with minimal anterolisthesis at L5-S1. No lytic or blastic lesions are seen. IMPRESSION: 1. There is rectosigmoid fecal impaction and mild to moderate constipation. 2. There is evidence of a nonspecific proctitis, likely stercoral. Correlate clinically. 3. Colonic diverticulosis without CT evidence of acute diverticulitis. 4. Advanced emphysema. 5. Additional findings as above. ACT 112: Negative or not required by law. Electronically signed by: Yair Mason M.D. 04/12/2024 6:05 PM
[2024-04-12] MEDS: PIPERACILLIN/TAZOBACTAM 4.5 GM/100 ML BAG IV ONE (18:38)
[2024-04-12] MEDS: LACTATED RINGER'S 500 ML IV ONE (18:40)
--- NOTE | 2024-04-12 18:51 | History & Physical Report ---
Date of Service April 12, 2024 Assessment & Plan (1) Sepsis: Plan: Possible diagnosis with tachycardia and elevated WBC although procalcitonin normal and no definitive source. Suspected proctitis source. UA, CXR and CT A/P otherwise negative for infectious source. Blood culture notably taken after antibiotics given but will follow this up Empiric antibiotics with IV Zosyn Hold all anti-hypertensives, additional 1.5L LR to be given for total 3L IV fluids bolus given continued hypotension and elevated lactate (2) Proctitis: Plan: Most likely pressure related but will cover for infection with IV Zosyn Laxatives deferred on admission, will plan to stabilize patient first (3) Rectal bleed: Plan: Hematochezia Hgb stable despite this starting yesterday Switch pantoprazole to 40mg IV BID as does not appear to be an upper GI bleed at this time (can switch back to PO if Hgb remains stable) Trend H&H q6h Transfuse < 7 (4) Acute kidney injury superimposed on CKD: Plan: Clinically dry, Repeat Cr in AM following fluid resuscitation Holding anti-hypertensives (5) Acute blood loss anemia: (6) Hypotension: Plan COPD - no acute exacerbation suspected, reduce theophylline to once daily due to increased accumulation in sepsis, continue maintenance inhalers VTE Prophylaxis - Chemical contraindicated in setting of GI bleed Diet - NPO Disposition - admit to PCU Admission and Anticipated Discharge Date Admission Date: April 12, 2024 History of Present Illness Chief Complaint: Hematochezia Hypotension Primary Care Provider: [facility] Fan Prather is an 78 year old male who presents to the ER from [facility] due to hypotension and hematochezia. The patient reports diarrhea started yesterday with blood. He felt lightheaded and dizzy but denies any syncopal event. EMS no bob possible loss of consciousness yesterday for about 5 minutes although the patient denies this. Per EMS he was hypotensive on his way to the ER with lowest being 51/26 and was given 250 mL bolus of normal saline given prior to arrival to the ER. Per senior care notes he was sent to the ER for hematochezia that started yesterday and hypotension. The patient currently denies any fever, chills, dizziness, lightheadedness, shortness of breath, nausea, vomiting, chest pain, abdominal pain or acute urinary symptoms. He does note chronic problems with passing urine but does not take any medications for this. He was notably passing alba bright red blood while in the ER. Initially ordered 1 unit of blood although this was never given. Allergies Allergy/AdvReac Type Severity Reaction Status Date / Time No Known Allergies Allergy Verified 04/12/24 19:08 Home Medications Medication Instructions Recorded Confirmed Type albuterol sulfate 90 mcg/actuation 1 puff inhalation QID PRN 04/12/24 04/12/24 History aerosol inhaler Shortness Of Breath amlodipine 2.5 mg tablet 2.5 mg PO DAILY 04/12/24 04/12/24 History apixaban 5 mg tablet (Eliquis) 5 mg PO BID 04/12/24 04/12/24 History docusate sodium 250 mg capsule 250 mg PO DAILY 04/12/24 04/12/24 History fluticasone fur. 100 mcg-umeclid 1 inh inhalation DAILY 04/12/24 04/12/24 History 62.5 mcg-vilant 25 mcg inhalat.powder (Trelegy Ellipta) lisinopril 20 mg tablet 20 mg PO DAILY 04/12/24 04/12/24 History lovastatin 20 mg tablet 20 mg PO HS 04/12/24 04/12/24 History montelukast 10 mg tablet 10 mg PO DAILY 04/12/24 04/12/24 History montelukast 10 mg tablet 10 mg PO DAILY 04/12/24 04/12/24 History pantoprazole 40 mg tablet,delayed 40 mg PO DAILY 04/12/24 04/12/24 History release theophylline 300 mg 300 mg PO TID 04/12/24 04/12/24 History capsule,extended release 24 hr vitamin A-vitamin C-vit E-min 1 tab PO DAILY 04/12/24 04/12/24 History tablet Past Med/Surg History Problem List (Updated 04/13/24 @ 07:07 by Thee Carlson MD) Acute blood loss anemia Proctitis (Acute) Acute kidney injury superimposed on CKD (Acute) Rectal bleed (Acute) Pulmonary venous thrombosis Elevated d-dimer Tachycardia (Acute) Hyperglycemia Weakness (Acute) ANTHONY (acute kidney injury) (Acute) Gram-negative bacteremia Elevated troponin (Chronic) Leukocytosis (Acute) Pneumonia (Acute) COPD (chronic obstructive pulmonary disease) (Acute) Sepsis (Acute) Pneumonia Acute upper GI hemorrhage Hemorrhagic shock Hypotension Medical History (Updated 04/13/24 @ 07:07 by Thee Carlson MD) GERD (gastroesophageal reflux disease) Hyperlipidemia Hypertension COPD (chronic obstructive pulmonary disease) Aortic aneurysm UNSPECIFIED PER MEDICAL RECORD Surgical History History of cataract surgery RT H/O aortic aneurysm repair Social History Smoking Status: Former smoker Tobacco Type: Cigarettes Cigarettes Per Day: SMOKED 1 PPD X 60 YRS; Second Hand Exposure: No; Do You Dip or Chew Tobacco: No; Tobacco Cessation Education Requested by Patient: No Hx Alcohol Use: No Hx Substance Use: No Preferred Language: Singaporean Communication Ability: Effective General Internist Required: No Beliefs That Will Affect Care: None Current Living Situation: Other Current Living Situation Comment: [facility] Other Information That Helps Us Care for You: No Feels Safe at Home: Yes Safety Concerns: Feels Safe At This Time Assistive Devices: Glasses Review of Systems Review of Systems: All systems reviewed & are unremarkable except as noted in HPI & below Physical Exam Constitutional: well developed and + frail appearing; + not well nourished and no acute distress Eyes: PERRL, conjunctivae normal, anicteric sclerae ENMT: Mouth: + dry oral mucous membranes Respiratory: normal respiratory effort; no respiratory distress Auscultation: + bronchial breath sounds; no crackles, no rales, no rhonchi and no wheezes Cardiovascular: Rate/Rhythm: + tachycardic and + irregularly irregular Heart Sounds: + murmur (loudest in apex) Extremities: normal capillary refill; no calf tenderness and no pedal edema Gastrointestinal (Abdomen): normal bowel sounds, soft, nontender, no hepatosplenomegaly Musculoskeletal: no cyanosis or clubbing, extremities motor strength 5/5 Skin: no rashes, warm and dry Neurologic: moves all extremities and awake; not confused Psychiatric: A+Ox3, euthymic affect Genitourinary: no CVA tenderness Results & Data Results & Data Vital Signs (Past 12 Hours) Vital Signs Temp Pulse Pulse Resp BP BP Pulse Ox 04/12/24 18:46 100 H 22 105/63 95 04/12/24 18:15 90 22 77/58 L 97 04/12/24 18:00 89 22 71/42 L 95 04/12/24 17:46 97 H 20 79/55 L 98 04/12/24 17:37 100 H 04/12/24 17:15 98 H 24 96/59 L 93 04/12/24 17:14 96 H 24 94 04/12/24 17:14 36.4 C L 96 H 24 62/38 L 94 04/12/24 16:53 101 H 22 78/54 L 92 O2 Del Method O2 Flow Rate 04/12/24 18:46 Nasal Cannula 2 04/12/24 18:15 Nasal Cannula 2 04/12/24 18:00 Nasal Cannula 2 04/12/24 17:46 Nasal Cannula 2 04/12/24 17:37 04/12/24 17:15 Nasal Cannula 2 04/12/24 17:14 Nasal Cannula 2 04/12/24 17:14 Nasal Cannula 2 04/12/24 16:53 Laboratory Results Abnormal lab results 04/12/24 04/12/24 04/12/24 Range/Units 16:42 16:48 17:26 WBC 20.65 H (4.8-10.8) K/ul RBC 4.17 L (4.70-6.10) M/uL Hgb 13.3 L (14.0-18.0) g/dl POC Hgb 13.6 L (14.0-18.0) g/dl Hct 40.7 L (42.0-52.0) % POC Hct 40 L (42-52) % Neut # (Auto) 15.64 H (1.40-6.50) K/uL [place] # (Auto) 2.45 H (0.11-0.59) K/uL APTT 33 H (21-31) Seconds Sodium 135 L (136-145) mmol/L POC Chloride 99 L (101-112) mmol/L POC Anion Gap 14.0 L (16-25) mmol/L POC BUN 55 H (7-18) mg/dl BUN 61 H (6-23) mg/dl Creatinine 3.89 H (0.6-1.4) mg/dl POC Creatinine 4.2 H (0.6-1.3) mg/dl Glucose 125 H (70-99(Fasting)) mg/dl POC Glucose (other) 123 H (70-99) mg/dl Lactate 2.2 H* (0.4-2.0) mmol/L POC Ioniz Calcium Riya 1.10 L (1.12-1.32) mmol/l Troponin I High Sens 23.0 H (0-20) pg/ml POC Stool Occult Blood Positive A (Negative) Crossmatch See Detail Diagnostic Findings CT SCAN OF THE ABDOMEN AND PELVIS WITHOUT IV CONTRAST CLINICAL HISTORY: Hematochezia. COMPARISON STUDY: Abdominal CT dated 02/11/2015. TECHNIQUE: CT scan of the abdomen and pelvis is performed from the lung bases to the proximal femora. Images are reviewed in the axial, sagittal, and coronal planes. IV contrast was not administered for this examination. A dose lowering technique was utilized adhering to the principles of ALARA. CT DOSE: 392.8 mGy.cm FINDINGS: Lung bases: The heart is normal in size and without pericardial effusion. Advanced emphysematous change is seen at the lung bases. There is bibasilar scarring/atelectasis. No airspace consolidation or pleural effusion is identified. Liver: The unenhanced liver is normal in size, contour, and attenuation. There is no intrahepatic biliary ductal dilatation. Gallbladder: Unremarkable. Spleen: Normal in size and attenuation. There are calcified splenic granulomas. Pancreas: The unenhanced pancreas is moderately atrophic and grossly unremarkable. Adrenal glands: Unremarkable. Kidneys: There is asymmetric cortical atrophy of the left kidney as compared to the right. No hydronephrosis is seen. No renal calculi are identified and no ureteral stone is seen. There is no evidence of contour deforming renal mass lesion. Abdominal vasculature: There is advanced atherosclerotic calcification of the abdominal aorta. There are overlapping stent graft within the abdominal aorta. The stent graft extends into the left iliac artery. The residual aneurysm sac measures up to 3.1 cm. A femorofemoral bypass is in place. Bowel: There is rectosigmoid fecal impaction and mild to moderate constipation. There is rectal wall thickening with perirectal infiltration consistent with a mild proctitis. No bowel obstruction is seen. There is moderate colonic div erticulosis without CT evidence of acute diverticulitis. The appendix is well- visualized and normal. Peritoneum: There is no intraperitoneal free air or abdominal ascites. There is fluid within the umbilicus. Lymphadenopathy: None. Pelvic viscera: The prostate gland is diminutive and heterogeneous. The bladder wall is thickened/trabeculated indicating chronic outlet obstruction. A small focus of gas within the bladder lumen is nonspecific and likely related to instrumentation. Skeletal structures: The skeletal structures are osteopenic. Moderate moderate lumbosacral spondylosis is observed. Bilateral pars defects are noted at L5 with minimal anterolisthesis at L5-S1. No lytic or blastic lesions are seen. IMPRESSION: 1. There is rectosigmoid fecal impaction and mild to moderate constipation. 2. There is evidence of a nonspecific proctitis, likely stercoral. Correlate clinically. 3. Colonic diverticulosis without CT evidence of acute diverticulitis. 4. Advanced emphysema. 5. Additional findings as above. Medications Administered ER Medications Given: Pantoprazole 80mg IV bolus and 8mg /hr drip NSS 500ml bolus x2 LR 500ml bolus Ceftriaxone 2g IV Zosyn 4.5g IV ECG Rate (beats per minute): 101 Rhythm: sinus tachycardia Findings: + PAC Comparison ECG Date: from (March 22, 2024) Change: the following changes noted (Non specific T wave abnormality no longer evident in inferior leads) Code Status & VTE Plan Code Status Full VTE Prophylaxis Plan VTE Prophylaxis will be ordered: No PG Care Time/CCT Total # of Minutes Spent Total Time Spent with Patient: Total time spent is greater than 50% in coordination of care (as documented) at patient's floor/unit and/or counseling patient: Coding Level of Care Code 51097 INT INP/OBS CARE 3/75MIN Diagnoses Sepsis A41.9 Proctitis K62.89 Rectal bleed K62.5 Acute kidney injury superimposed on CKD N17.9; N18.9 Acute blood loss anemia D62 Hypotension I95.9
--- NOTE | 2024-04-12 19:16 | XRay Report ---
SINGLE VIEW CHEST CLINICAL HISTORY: Gastrointestinal bleeding FINDINGS: 2 AP, portable, upright chest radiographs are compared to study dated 03/22/2024. Correlation is made with chest CT dated 03/25/2024. The cardiomediastinal silhouette is unremarkable noting athero sclerotic calcification of the thoracic aorta. Advanced emphysema and chronic interstitial thickening is similar to previous. Foci of parenchymal scarring are seen throughout both lungs. No airspace con solidation or large pleural effusion is identified. No pneumothorax is seen. The skeletal structures are osteopenic. The bony thorax is grossly intact. A stent graft is partially visualized in the upper abdomen. IMPRESSION: Advanced emphysematous change with no active disease in the chest. ACT 112: Negative or not required by law. Electronically signed by: Yair Mason M.D. 04/12/2024 7:14 PM
[2024-04-12] MEDS: LACTATED RINGER'S 1,000 ML IV ONE (20:38)
[2024-04-12 20:49] LABS: Appearance Urine Clear (Clear); Bacteria Urine Automated None Seen (None Seen); Bilirubin Urine Negative (Negative); Blood Urine Negative (Negative); Color Urine Yellow; Epithelial Cell Urine Auto 0-2 /hpf (0-2); Glucose Urine UA Negative (Negative); Ketones Urine Negative (Negative); Leukocyte Esterase Urine Negative (Negative); Nitrite Urine Negative (Negative); Protein Urine 1+ (Negative); RBC Urine Automated 0-2 /hpf (0-2); Specific Gravity Urine 1.009 (1.000-1.030); Urobilinogen Urine Negative (Negative); WBC Urine Automated 0-5 /hpf (0-5); pH Urine 5.5 (4.5-7.5)
[2024-04-12] MEDS: MONTELUKAST SODIUM 10 MG TABLET PO SCH (21:56)
[2024-04-12] MEDS: LOVASTATIN 20 MG TAB PO SCH (21:56)
[2024-04-12] MEDS: LACTATED RINGER'S 1,000 ML IV SCH (22:40)
[2024-04-12] MEDS: PIPERACILLIN/TAZOBACTAM 4.5 GM/100 ML BAG IV SCH (23:14)
[2024-04-13] MEDS: LACTATED RINGER'S 500 ML IV ONE (00:12)
[2024-04-13 01:12] LABS: Hematocrit (blood only) 36.9 % (42.0-52.0); Hemoglobin 11.8 g/dl (14.0-18.0)
[2024-04-13] MEDS: ALBUMIN 25% 25 GM/100 ML VIAL IV ONE (03:32)
[2024-04-13 07:27] LABS: Basophils # (auto) 0.03 K/uL (0.00-0.20); Basophils % (auto) 0.2 %; Eosinophils # (auto) 0.01 K/uL (0.00-0.50); Eosinophils % (auto) 0.1 %; Hematocrit (blood only) 36.9 % (42.0-52.0); Hemoglobin 11.9 g/dl (14.0-18.0); Immature Granulocytes # (auto) 0.08 K/uL (0.01-0.20); Immature Granulocytes % (auto) 0.5 %; Lymphocytes % (auto) 11.9 %; Mean Corpuscular Hgb Conc 32.2 g/dL (32.0-36.0); Mean Corpuscular Volume 99.2 fL (80.0-100.0); Mean Platelet Volume 10.5 fL (9.4-12.4); Monocytes # (auto) 1.57 K/uL (0.11-0.59); Monocytes % (auto) 10.4 %; Neutrophils # (auto) 11.67 K/uL (1.40-6.50); Neutrophils % (auto) 76.9 %; Platelet Count 231 K/uL (130-400); RDW Coefficient of Variation 12.9 % (11.5-14.5); RDW Standard Deviation 46.5 fL (36.4-46.3); Red Blood Count 3.72 M/uL (4.70-6.10); White Blood Count 15.16 K/ul (4.8-10.8)
[2024-04-13 08:16] LABS: Albumin Globulin Ratio 1.4 (0.9-2); BUN Creatinine Ratio 15.7 (10-20); Calcium 9.1 mg/dl (8.6-10.3); Creatinine Clr Calc Pharmacy 16.2 ml/min; Est GFR (African American) 21.7 ml/min; Est GFR (Non-African American) 18.8 ml/min; Globulin 2.8 gm/dl (2.5-4.0); Potassium 5.1 mmol/L (3.5-5.1); Total Protein 6.8 gm/dl (6.0-8.3)
[2024-04-13] MEDS: THEOPHYLLINE 300MG EXTENDED REL TAB PO SCH (08:16)
[2024-04-13] MEDS: DOCUSATE SODIUM 100 MG CAP PO SCH (08:16)
[2024-04-13] MEDS: FLUTICASONE FUROATE 100MCG 14 PUFFS/INHALER INH SCH (08:16)
[2024-04-13] MEDS: UMECLIDINIUM/VILANTEROL 62.5/25MCG 7 PUFFS/INHALER INH SCH (08:16)
[2024-04-13] MEDS: PANTOprazole 40 MG in SYRINGE 0 ML IV SCH (08:17)
--- NOTE | 2024-04-13 08:37 | Hospitalist Progress Note ---
Date of Service April 13, 2024 Assessment & Plan (1) Sepsis: (2) Proctitis: (3) Rectal bleed: (4) Acute kidney injury superimposed on CKD: (5) Acute blood loss anemia: (6) Hypotension: Plan 78 year old male who presents to the ER from [facility] due to hypotension and hematochezia. The patient reports diarrhea started yesterday with blood. He felt lightheaded and dizzy but denies any syncopal event. EMS notes possible loss of consciousness yesterday for about 5 minutes although the patient denies this. Per EMS he was hypotensive on his way to the ER with lowest being 51/26 and was given 250 mL bolus of normal saline given prior to arrival to the ER. [facility] notes he was sent to the ER for hematochezia that started yesterday and hypotension. #Sepsis #Hypotension - resolved - Possible diagnosis with tachycardia and elevated WBC although procalcitonin normal and no definitive source. - Suspected proctitis source. UA, CXR and CT A/P otherwise negative for infectious source. - Blood culture notably taken after antibiotics given but will follow this up - Empiric antibiotics with IV Zosyn Day 2 / TBD - Hold all anti-hypertensives, additional 1.5L LR to be given for total 3L IV fluids bolus given continued hypotension and elevated lactate - cont IVF #Proctitis: - Most likely pressure related but will cover for infection with IV Zosyn - Laxatives deferred on admission, will plan to stabilize patient first #Rectal bleed: - Hgb stable despite this starting yesterday - Switch pantoprazole to 40mg IV BID as does not appear to be an upper GI bleed at this time (can switch back to PO if Hgb remains stable) - Trend H&H q6h - Transfuse < 7 - GI on board, recs appreciated - KUP ordered #Acute kidney injury superimposed on CKD: - baseline Cr around 1.9 - 2 - on admission 3.89, but improving with IVF - Holding anti-hypertensives #Anemia - check iron studies, b12, folate #COPD - no acute exacerbation suspected, reduce theophylline to once daily due to increased accumulation in sepsis, continue maintenance inhalers #VTE Prophylaxis - Chemical contraindicated in setting of GI bleed #Diet - NPO w/ ice chips #Disposition - remain in PCU level of care Admission and Anticipated Discharge Date Admission Date: April 12, 2024 Subjective no acute events currently states he is still having bloody loose stools Physical Exam Physical Exam: Gen: lying in bed comfortably HEENT: pale, NC/AT, perrl, MMM Lungs: CTAB CVS: s1s2 nl, RRR Abd: soft, nl BS, nontender Ext: no LE edema Psych; pleasant, communicating appropriately Results & Data Results & Data Vital Signs (Past 12 Hours) Vital Signs Temp Pulse Pulse Resp BP BP BP 04/13/24 07:12 36.5 C 97 H 16 96/63 L 04/13/24 04:55 86 98/57 L 04/13/24 04:20 90 97/63 L 04/13/24 03:41 87 81/58 L 04/13/24 02:47 88/49 L 04/13/24 02:46 36.5 C 86 20 82/52 L 04/13/24 00:16 101 H 113/57 L 04/13/24 00:00 36.6 C 98 H 20 81/52 L 04/12/24 23:15 110 H 97/60 L 04/12/24 22:30 104 H 133/92 04/12/24 22:14 112 H 91/60 L 04/12/24 22:00 112 H 133/94 04/12/24 21:50 105 H 04/12/24 21:45 104 H 123/68 04/12/24 21:35 04/12/24 21:33 36.5 C 101 H 23 112/57 L 04/12/24 21:03 97 H 26 H 94/68 L 04/12/24 20:57 95 H 25 H 95/48 L 04/12/24 20:54 101 H 22 119/71 Pulse Ox O2 Del Method O2 Flow Rate 04/13/24 07:12 99 Nasal Cannula 2 04/13/24 04:55 04/13/24 04:20 04/13/24 03:41 04/13/24 02:47 04/13/24 02:46 95 Nasal Cannula 2 04/13/24 00:16 04/13/24 00:00 96 Nasal Cannula 2.0 04/12/24 23:15 04/12/24 22:30 04/12/24 22:14 04/12/24 22:00 04/12/24 21:50 04/12/24 21:45 98 Nasal Cannula 2 04/12/24 21:35 Nasal Cannula 2 04/12/24 21:33 93 Room Air 04/12/24 21:03 93 04/12/24 20:57 93 04/12/24 20:54 92 PG Care Time/CCT Total # of Minutes Spent Total Time Spent with Patient: Total time spent is greater than 50% in coordination of care (as documented) at patient's floor/unit and/or counseling patient: Coding Level of Care Code 64852 SUB INP/OBS CARE 2MIN Diagnoses Sepsis A41.9 Proctitis K62.89 Rectal bleed K62.5 Acute kidney injury superimposed on CKD N17.9; N18.9 Acute blood loss anemia D62 Hypotension I95.9
[2024-04-13] MEDS ORDERED: NON-FORMULARY MEDICATION (Fluticasone-Umeclidin-Vilanter [Trelegy Ellipta] 100-62.5-25 mcg INH SCH (09:00)
--- NOTE | 2024-04-13 10:03 | Gastrointestinal Consultation ---
Date of Consultation April 13, 2024 Assessment & Plan (1) Rectal bleed: Rectal bleeding with proctitis and fecal impaction. This is likely stercoral proctitis with resultant bleeding. There is nothing colonic on CT to suggest ischemic colitis despite his vascular issues. His hemoglobin was 13.3 on admit and fell to 11.9 but I suspect the 13.3 was high related to volume contraction with hypotension. Would consider KUB tomorrow to assess stool burden as patient seems to be having a lot of bowel movements now. May need to supplement with miralax. Will decide about colonoscopy later in his hospitalization. History of Present Illness Reason for Consultation: rectal bleeding Attending Physician: Benita Torres MD History of Present Illness 78 year old inmate admitted with hypotension and presumed sepsis. I am asked to see him for rectal bleeding. He admits he was seeing blood with bowel movement yesterday and this has continued. He says he has been constipated over the last few days. He denies rectal pain and currently feels well and wants to go back to the longterm. He is on bedpan having a bowel movement as we speak. He has never had a colonoscopy before. CT scan shows fecal impaction in rectosigmoid colon with evidence of proctitis. Allergies Allergy/AdvReac Type Severity Reaction Status Date / Time No Known Allergies Allergy Verified 04/12/24 19:08 Home Medications Medication Instructions Recorded Confirmed Type albuterol sulfate 90 mcg/actuation 1 puff inhalation QID PRN 04/12/24 04/12/24 History aerosol inhaler Shortness Of Breath amlodipine 2.5 mg tablet 2.5 mg PO DAILY 04/12/24 04/12/24 History apixaban 5 mg tablet (Eliquis) 5 mg PO BID 04/12/24 04/12/24 History docusate sodium 250 mg capsule 250 mg PO DAILY 04/12/24 04/12/24 History fluticasone fur. 100 mcg-umeclid 1 inh inhalation DAILY 04/12/24 04/12/24 History 62.5 mcg-vilant 25 mcg inhalat.powder (Trelegy Ellipta) lisinopril 20 mg tablet 20 mg PO DAILY 04/12/24 04/12/24 History lovastatin 20 mg tablet 20 mg PO HS 04/12/24 04/12/24 History montelukast 10 mg tablet 10 mg PO DAILY 04/12/24 04/12/24 History montelukast 10 mg tablet 10 mg PO DAILY 04/12/24 04/12/24 History pantoprazole 40 mg tablet,delayed 40 mg PO DAILY 04/12/24 04/12/24 History release theophylline 300 mg 300 mg PO TID 04/12/24 04/12/24 History capsule,extended release 24 hr vitamin A-vitamin C-vit E-min 1 tab PO DAILY 04/12/24 04/12/24 History tablet Patient History Medical History GERD (gastroesophageal reflux disease) Hyperlipidemia Hypertension COPD (chronic obstructive pulmonary disease) Aortic aneurysm UNSPECIFIED PER MEDICAL RECORD Surgical History History of cataract surgery RT H/O aortic aneurysm repair Social History Smoking Status: Former smoker Tobacco Type: Cigarettes Cigarettes Per Day: SMOKED 1 PPD X 60 YRS; Second Hand Exposure: No; Do You Dip or Chew Tobacco: No; Tobacco Cessation Education Requested by Patient: No Hx Alcohol Use: No Hx Substance Use: No Preferred Language: Greek Communication Ability: Effective Mechanical Product Engineer Required: No Beliefs That Will Affect Care: None Current Living Situation: Other Current Living Situation Comment: [facility] Other Information That Helps Us Care for You: No Feels Safe at Home: Yes Safety Concerns: Feels Safe At This Time Assistive Devices: Glasses Review of Systems Review of Systems: All systems reviewed & are unremarkable except as noted in HPI & below Physical Exam Constitutional: WD/WN, vitals as above + ill appearing and + thin Neck: trachea midline, no thyromegaly Respiratory: normal respiratory effort, lungs clear to auscultation Cardiovascular: RRR, no murmur, no edema Gastrointestinal (Abdomen): normal bowel sounds, soft, nontender, no hepatosplenomegaly Results & Data Vital Signs (Past 12 Hours) Vital Signs Temp Pulse Resp BP BP Pulse Ox O2 Del Method 04/13/24 07:12 36.5 C 97 H 16 96/63 L 99 Nasal Cannula 04/13/24 04:55 86 98/57 L 04/13/24 04:20 90 97/63 L 04/13/24 03:41 87 81/58 L 04/13/24 02:47 88/49 L 04/13/24 02:46 36.5 C 86 20 82/52 L 95 Nasal Cannula 04/13/24 00:16 101 H 113/57 L 04/13/24 00:00 36.6 C 98 H 20 81/52 L 96 Nasal Cannula 04/12/24 23:15 110 H 97/60 L 04/12/24 22:30 104 H 133/92 04/12/24 22:14 112 H 91/60 L O2 Flow Rate 04/13/24 07:12 2 04/13/24 04:55 04/13/24 04:20 04/13/24 03:41 04/13/24 02:47 04/13/24 02:46 2 04/13/24 00:16 04/13/24 00:00 2.0 04/12/24 23:15 04/12/24 22:30 04/12/24 22:14 Laboratory Results 04/13/24 04/13/24 04/12/24 Range/Units 07:08 00:41 Unknown WBC 15.16 H (4.8-10.8) K/ul RBC 3.72 L (4.70-6.10) M/uL Hgb 11.9 L 11.8 L (14.0-18.0) g/dl POC Hgb (14.0-18.0) g/dl Hct 36.9 L 36.9 L (42.0-52.0) % POC Hct (42-52) % MCV 99.2 (80.0-100.0) fL MCH 32.0 (25.0-34.0) pg MCHC 32.2 (32.0-36.0) g/dL RDW Std Deviation 46.5 H (36.4-46.3) fL RDW Coeff of Yoandy 12.9 (11.5-14.5) % Plt Count 231 (130-400) K/uL MPV 10.5 (9.4-12.4) fL Immature Gran % (Auto) 0.5 % Neut % (Auto) 76.9 % Lymph % (Auto) 11.9 % [place] % (Auto) 10.4 % Eos % (Auto) 0.1 % Baso % (Auto) 0.2 % Neut # (Auto) 11.67 H (1.40-6.50) K/uL Lymph # (Auto) 1.80 (1.20-3.40) K/uL [place] # (Auto) 1.57 H (0.11-0.59) K/uL Eos # (Auto) 0.01 (0.00-0.50) K/uL Baso # (Auto) 0.03 (0.00-0.20) K/uL Immature Gran # (Auto) 0.08 (0.01-0.20) K/uL PT (9.0-12.0) Seconds INR (0.9-1.1) APTT (21-31) Seconds PTT Ratio POC Sodium (135-144) mmol/L Sodium 144 D (136-145) mmol/L POC Potassium (3.3-5.0) mmol/L Potassium 5.1 (3.5-5.1) mmol/L POC Chloride (101-112) mmol/L Chloride 107 (98-107) mmol/L Carbon Dioxide 30 (21-32) mmol/L POC Total CO2 (24-31) mmol/L Anion Gap 7 (3-11) POC Anion Gap (16-25) mmol/L POC BUN (7-18) mg/dl BUN 47 H (6-23) mg/dl Creatinine 3.00 H D (0.6-1.4) mg/dl POC Creatinine (0.6-1.3) mg/dl Est Cr Clr Drug Dosing 16.2 Est GFR ( Amer) 21.7 ml/min Est GFR (Non-Af Amer) 18.8 ml/min BUN/Creatinine Ratio 15.7 (10-20) Glucose 106 H (70-99(Fasting)) mg/dl POC Glucose (other) (70-99) mg/dl Lactate 1.9 (0.4-2.0) mmol/L Calcium 9.1 (8.6-10.3) mg/dl POC Ioniz Calcium Riya (1.12-1.32) mmol/l Total Bilirubin 1.0 (0.2-1.0) mg/dl AST 14 (13-39) U/L ALT 7 (7-52) U/L Alkaline Phosphatase 57 (34-104) U/L Troponin I High Sens (0-20) pg/ml Total Protein 6.8 (6.0-8.3) gm/dl Albumin 4.0 (3.4-5.0) gm/dl Globulin 2.8 (2.5-4.0) gm/dl Albumin/Globulin Ratio 1.4 (0.9-2) Lipase (11-82) U/L Procalcitonin (0-0.5) ng/ml Cortisol AM Sample 23.24 H (6.2-22.6) mcg/dl Urine Color Yellow Urine Appearance Clear (Clear) Urine pH 5.5 (4.5-7.5) Ur Specific [place] 1.009 (1.000-1.030) Urine Protein 1+ H (Negative) Urine Glucose (UA) Negative (Negative) Urine Ketones Negative (Negative) Urine Blood Negative (Negative) Urine Nitrite Negative (Negative) Urine Bilirubin Negative (Negative) Urine Urobilinogen Negative (Negative) Ur Leukocyte Esterase Negative (Negative) Urine WBC (Auto) 0-5 (0-5) /hpf Urine RBC (Auto) 0-2 (0-2) /hpf U Hyaline Cast (Auto) 11-20 H (0-2) /lpf U Epithel Cells (Auto) 0-2 (0-2) /hpf Urine Bacteria (Auto) None Seen (None Seen) POC Stool Occult Blood (Negative) SARS-CoV-2, RNA, NAAT (NEGATIVE) Blood Type Antibody Screen Crossmatch 04/12/24 04/12/24 04/12/24 Range/Units 22:47 18:49 17:41 WBC (4.8-10.8) K/ul RBC (4.70-6.10) M/uL Hgb (14.0-18.0) g/dl POC Hgb (14.0-18.0) g/dl Hct (42.0-52.0) % POC Hct (42-52) % MCV (80.0-100.0) fL MCH (25.0-34.0) pg MCHC (32.0-36.0) g/dL RDW Std Deviation (36.4-46.3) fL RDW Coeff of Yoandy (11.5-14.5) % Plt Count (130-400) K/uL MPV (9.4-12.4) fL Immature Gran % (Auto) % Neut % (Auto) % Lymph % (Auto) % [place] % (Auto) % Eos % (Auto) % Baso % (Auto) % Neut # (Auto) (1.40-6.50) K/uL Lymph # (Auto) (1.20-3.40) K/uL [place] # (Auto) (0.11-0.59) K/uL Eos # (Auto) (0.00-0.50) K/uL Baso # (Auto) (0.00-0.20) K/uL Immature Gran # (Auto) (0.01-0.20) K/uL PT (9.0-12.0) Seconds INR (0.9-1.1) APTT (21-31) Seconds PTT Ratio POC Sodium (135-144) mmol/L Sodium (136-145) mmol/L POC Potassium (3.3-5.0) mmol/L Potassium (3.5-5.1) mmol/L POC Chloride (101-112) mmol/L Chloride (98-107) mmol/L Carbon Dioxide (21-32) mmol/L POC Total CO2 (24-31) mmol/L Anion Gap (3-11) POC Anion Gap (16-25) mmol/L POC BUN (7-18) mg/dl BUN (6-23) mg/dl Creatinine (0.6-1.4) mg/dl POC Creatinine (0.6-1.3) mg/dl Est Cr Clr Drug Dosing Est GFR ( Amer) ml/min Est GFR (Non-Af Amer) ml/min BUN/Creatinine Ratio (10-20) Glucose (70-99(Fasting)) mg/dl POC Glucose (other) (70-99) mg/dl Lactate 2.6 H* 2.3 H* (0.4-2.0) mmol/L Calcium (8.6-10.3) mg/dl POC Ioniz Calcium Riya (1.12-1.32) mmol/l Total Bilirubin (0.2-1.0) mg/dl AST (13-39) U/L ALT (7-52) U/L Alkaline Phosphatase (34-104) U/L Troponin I High Sens 21.7 H (0-20) pg/ml Total Protein (6.0-8.3) gm/dl Albumin (3.4-5.0) gm/dl Globulin (2.5-4.0) gm/dl Albumin/Globulin Ratio (0.9-2) Lipase (11-82) U/L Procalcitonin (0-0.5) ng/ml Cortisol AM Sample (6.2-22.6) mcg/dl Urine Color Urine Appearance (Clear) Urine pH (4.5-7.5) Ur Specific [place] (1.000-1.030) Urine Protein (Negative) Urine Glucose (UA) (Negative) Urine Ketones (Negative) Urine Blood (Negative) Urine Nitrite (Negative) Urine Bilirubin (Negative) Urine Urobilinogen (Negative) Ur Leukocyte Esterase (Negative) Urine WBC (Auto) (0-5) /hpf Urine RBC (Auto) (0-2) /hpf U Hyaline Cast (Auto) (0-2) /lpf U Epithel Cells (Auto) (0-2) /hpf Urine Bacteria (Auto) (None Seen) POC Stool Occult Blood (Negative) SARS-CoV-2, RNA, NAAT NEGATIVE (NEGATIVE) Blood Type Antibody Screen Crossmatch 04/12/24 04/12/24 04/12/24 Range/Units 17:26 16:48 16:42 WBC 20.65 H (4.8-10.8) K/ul RBC 4.17 L (4.70-6.10) M/uL Hgb 13.3 L (14.0-18.0) g/dl POC Hgb 13.6 L (14.0-18.0) g/dl Hct 40.7 L (42.0-52.0) % POC Hct 40 L (42-52) % MCV 97.6 (80.0-100.0) fL MCH 31.9 (25.0-34.0) pg MCHC 32.7 (32.0-36.0) g/dL RDW Std Deviation 45.6 (36.4-46.3) fL RDW Coeff of Yoandy 12.6 (11.5-14.5) % Plt Count 272 (130-400) K/uL MPV 10.4 (9.4-12.4) fL Immature Gran % (Auto) 0.7 % Neut % (Auto) 75.8 % Lymph % (Auto) 11.5 % [place] % (Auto) 11.9 % Eos % (Auto) 0.0 % Baso % (Auto) 0.1 % Neut # (Auto) 15.64 H (1.40-6.50) K/uL Lymph # (Auto) 2.38 (1.20-3.40) K/uL [place] # (Auto) 2.45 H (0.11-0.59) K/uL Eos # (Auto) 0.01 (0.00-0.50) K/uL Baso # (Auto) 0.03 (0.00-0.20) K/uL Immature Gran # (Auto) 0.14 (0.01-0.20) K/uL PT 11.5 (9.0-12.0) Seconds INR 1.1 (0.9-1.1) APTT 33 H (21-31) Seconds PTT Ratio 1.2 POC Sodium 135 (135-144) mmol/L Sodium 135 L (136-145) mmol/L POC Potassium 4.6 (3.3-5.0) mmol/L Potassium 4.6 (3.5-5.1) mmol/L POC Chloride 99 L (101-112) mmol/L Chloride 98 (98-107) mmol/L Carbon Dioxide 27 (21-32) mmol/L POC Total CO2 28 (24-31) mmol/L Anion Gap 10 (3-11) POC Anion Gap 14.0 L (16-25) mmol/L POC BUN 55 H (7-18) mg/dl BUN 61 H (6-23) mg/dl Creatinine 3.89 H (0.6-1.4) mg/dl POC Creatinine 4.2 H (0.6-1.3) mg/dl Est Cr Clr Drug Dosing Not Reportable Est GFR ( Amer) 15.9 ml/min Est GFR (Non-Af Amer) 13.7 ml/min BUN/Creatinine Ratio 15.7 (10-20) Glucose 125 H (70-99(Fasting)) mg/dl POC Glucose (other) 123 H (70-99) mg/dl Lactate 2.2 H* (0.4-2.0) mmol/L Calcium 9.4 (8.6-10.3) mg/dl POC Ioniz Calcium Riya 1.10 L (1.12-1.32) mmol/l Total Bilirubin 0.9 (0.2-1.0) mg/dl AST 13 (13-39) U/L ALT 7 (7-52) U/L Alkaline Phosphatase 64 (34-104) U/L Troponin I High Sens 23.0 H (0-20) pg/ml Total Protein 7.1 (6.0-8.3) gm/dl Albumin 3.9 (3.4-5.0) gm/dl Globulin 3.2 (2.5-4.0) gm/dl Albumin/Globulin Ratio 1.2 (0.9-2) Lipase 17 (11-82) U/L Procalcitonin 0.36 (0-0.5) ng/ml Cortisol AM Sample (6.2-22.6) mcg/dl Urine Color Urine Appearance (Clear) Urine pH (4.5-7.5) Ur Specific [place] (1.000-1.030) Urine Protein (Negative) Urine Glucose (UA) (Negative) Urine Ketones (Negative) Urine Blood (Negative) Urine Nitrite (Negative) Urine Bilirubin (Negative) Urine Urobilinogen (Negative) Ur Leukocyte Esterase (Negative) Urine WBC (Auto) (0-5) /hpf Urine RBC (Auto) (0-2) /hpf U Hyaline Cast (Auto) (0-2) /lpf U Epithel Cells (Auto) (0-2) /hpf Urine Bacteria (Auto) (None Seen) POC Stool Occult Blood Positive A (Negative) SARS-CoV-2, RNA, NAAT (NEGATIVE) Blood Type A Negative Antibody Screen NEGATIVE Crossmatch See Detail Diagnostic Findings Abdomen/Pelvis CT 04/12/24 16:59 CT SCAN OF THE ABDOMEN AND PELVIS WITHOUT IV CONTRAST CLINICAL HISTORY: Hematochezia. COMPARISON STUDY: Abdominal CT dated 02/11/2015. TECHNIQUE: CT scan of the abdomen and pelvis is performed from the lung bases to the proximal femora. Images are reviewed in the axial, sagittal, and coronal p lanes. IV contrast was not administered for this examination. A dose lowering technique was utilized adhering to the principles of ALARA. CT DOSE: 392.8 mGy.cm FINDINGS: Lung bases: The heart is normal in size and without pericardial effusion. Advanced emphysematous change is seen at the lung bases. There is bibasilar scarring/atelectasis. No airspace consolidation or pleural effusion is reinaldo ntified. Liver: The unenhanced liver is normal in size, contour, and attenuation. There is no intrahepatic biliary ductal dilatation. Gallbladder: Unremarkable. Spleen: Normal in size and attenuation. There are calcified splenic granulomas. Pancreas: The unenhanced pancreas is moderately atrophic and grossly unremarkable. Adrenal glands: Unremarkable. Kidneys: There is asymmetric cortical atrophy of the left kidney as compared to the right. No hydronephrosis is seen. No renal calculi are identified and no ureteral stone is seen. There is no evidence of contour deforming renal mass lesion. Abdominal vasculature: There is advanced atherosclerotic calcification of the abdominal aorta. There are overlapping stent graft within the abdominal aorta. The stent graft extends into the left iliac artery. The residual aneurysm sac measures up to 3.1 cm. A femorofemoral bypass is in place. Bowel: There is rectosigmoid fecal impaction and mild to moderate constipation. There is rectal wall thickening with perirectal infiltration consistent with a mild proctitis. No bowel obstruction is seen. There is moderate colonic diverticulosis without CT evidence of acute diverticulitis. The appendix is well-visualized and normal. Peritoneum: There is no intraperitoneal free air or abdominal ascites. There is fluid within the umbilicus. Lymphadenopathy: None. Pelvic viscera: The prostate gland is diminutive and heterogeneous. The bladder wall is thickened/trabeculated indicating chronic outlet obstruction. A small focus of gas within the bladder lumen is nonspecific and likely related to instrumentation. Skeletal structures: The skeletal structures are osteopenic. Moderate moderate lumbosacral spondylosis is observed. Bilateral pars defects are noted at L5 with minimal anterolisthesis at L5-S1. No lytic or blastic lesions are seen. IMPRESSION: 1. There is rectosigmoid fecal impaction and mild to moderate constipation. 2. There is evidence of a nonspecific proctitis, likely stercoral. Correlate clinically. 3. Colonic diverticulosis without CT evidence of acute diverticulitis. 4. Advanced emphysema. 5. Additional findings as above. ACT 112: Negative or not required by law. Electronically signed by: Yair Mason M.D. 04/12/2024 6:05 PM Chest X-Ray 04/12/24 18:33 SINGLE VIEW CHEST CLINICAL HISTORY: Gastrointestinal bleeding FINDINGS: 2 AP, portable, upright chest radiographs are compared to study dated 03/22/2024. Correlation is made with chest CT dated 03/25/2024. The cardiomediastinal silhouette is unremarkable noting atherosclerotic calcification of the thoracic aorta. Advanced emphysema and chronic interstitial thickening is similar to previous. Foci of parenchymal scarring are seen throughout both lungs. No airspace consolidation or large pleural effusion is identified. No pneumothorax is seen. The skeletal structures are osteopenic. The bony thorax is grossly intact. A stent graft is partially visualized in the upper abdomen. IMPRESSION: Advanced emphysematous change with no active disease in the chest. ACT 112: Negative or not required by law. Electronically signed by: Yair Mason M.D. 04/12/2024 7:14 PM
[2024-04-13] MEDS: PIPERACILLIN/TAZOBACTAM 4.5 GM/100 ML BAG IV SCH (20:55)
[2024-04-14] MEDS: MENTHOL-ZINC OXIDE 360 APPLN/120 GM TUBE EXT SCH (03:05)
[2024-04-14 08:02] LABS: Basophils # (auto) 0.06 K/uL (0.00-0.20); Basophils % (auto) 0.5 %; Eosinophils % (auto) 0.8 %; Hematocrit (blood only) 34.4 % (42.0-52.0); Hemoglobin 11.2 g/dl (14.0-18.0); Immature Granulocytes # (auto) 0.05 K/uL (0.01-0.20); Immature Granulocytes % (auto) 0.4 %; Lymphocytes # (auto) 1.83 K/uL (1.20-3.40); Lymphocytes % (auto) 13.9 %; Mean Corpuscular Hemoglobin 31.9 pg (25.0-34.0); Mean Corpuscular Hgb Conc 32.6 g/dL (32.0-36.0); Mean Platelet Volume 10.7 fL (9.4-12.4); Monocytes # (auto) 1.57 K/uL (0.11-0.59); Monocytes % (auto) 11.9 %; Neutrophils # (auto) 9.54 K/uL (1.40-6.50); Neutrophils % (auto) 72.5 %; Platelet Count 229 K/uL (130-400); RDW Coefficient of Variation 13.1 % (11.5-14.5); RDW Standard Deviation 46.2 fL (36.4-46.3); Red Blood Count 3.51 M/uL (4.70-6.10); White Blood Count 13.15 K/ul (4.8-10.8)
[2024-04-14 08:27] LABS: BUN Creatinine Ratio 15.5 (10-20); Calcium 8.8 mg/dl (8.6-10.3); Creatinine Clr Calc Pharmacy 23.5 ml/min; Est GFR (African American) 34.2 ml/min; Est GFR (Non-African American) 29.5 ml/min; Phosphorus 2.9 mg/dl (2.5-4.9)
--- NOTE | 2024-04-14 08:42 | Hospitalist Progress Note ---
Date of Service April 14, 2024 Assessment & Plan (1) Sepsis: (2) Proctitis: (3) Rectal bleed: (4) Acute kidney injury superimposed on CKD: (5) Acute blood loss anemia: (6) Hypotension: Plan 78 year old male who presents to the ER from [facility] due to hypotension and hematochezia. The patient reports diarrhea started yesterday with blood. He felt lightheaded and dizzy but denies any syncopal event. EMS notes possible loss of consciousness yesterday for about 5 minutes although the patient denies this. Per EMS he was hypotensive on his way to the ER with lowest being 51/26 and was given 250 mL bolus of normal saline given prior to arrival to the ER. Per [facility] notes he was sent to the ER for hematochezia that started yesterday and hypotension. #Sepsis #Hypotension - resolved - Possible diagnosis with tachycardia and elevated WBC although procalcitonin normal and no definitive source. - Suspected proctitis source. UA, CXR and CT A/P otherwise negative for infectious source. - Blood culture notably taken after antibiotics given but will follow this up - Empiric antibiotics with IV Zosyn Day 3 / TBD - Hold all anti-hypertensives, additional 1.5L LR to be given for total 3L IV fluids bolus given continued hypotension and elevated lactate - cont IVF #Proctitis: - Most likely pressure related but will cover for infection with IV Zosyn - Laxatives deferred on admission, will plan to stabilize patient first #Rectal bleed: - Hgb stable despite this starting yesterday - Switch pantoprazole to 40mg IV BID as does not appear to be an upper GI bleed at this time (can switch back to PO if Hgb remains stable) - Trend H&H q6h - Transfuse < 7 - GI on board, recs appreciated, plan for prep tomorrow for C-scope - KUP ordered #Hypernatremia - 1/2 NSS, trend Na - oral free water repletion - diet broadened to clears #Acute kidney injury superimposed on CKD: - baseline Cr around 1.9 - 2 - on admission 3.89, but improving with IVF - Holding anti-hypertensives #Anemia - iron studies, b12, folate stable - monitor Hgb #COPD - no acute exacerbation suspected, reduce theophylline to once daily due to increased accumulation in sepsis, continue maintenance inhalers #VTE Prophylaxis - Chemical contraindicated in setting of GI bleed #Diet - advance diet to clears #Disposition - remain in PCU level of care Admission and Anticipated Discharge Date Admission Date: April 12, 2024 Subjective no acute events currently states he is still having bloody loose stools Physical Exam Physical Exam: Gen: lying in bed comfortably HEENT: pale, NC/AT, perrl, MMM Lungs: CTAB CVS: s1s2 nl, RRR Abd: soft, nl BS, nontender Ext: no LE edema Psych; pleasant, communicating appropriately Results & Data Results & Data Vital Signs (Past 12 Hours) Vital Signs Temp Pulse Pulse Resp BP Pulse Ox O2 Del Method 04/14/24 07:34 36.8 C 87 18 125/74 99 Nasal Cannula 04/14/24 04:04 36.8 C 64 18 122/74 96 Nasal Cannula 04/13/24 23:27 98 H 04/13/24 22:59 37 C 91 H 18 127/66 94 Nasal Cannula O2 Flow Rate 04/14/24 07:34 2 04/14/24 04:04 04/13/24 23:27 04/13/24 22:59 2 PG Care Time/CCT Total # of Minutes Spent Total Time Spent with Patient: Total time spent is greater than 50% in coordination of care (as documented) at patient's floor/unit and/or counseling patient: Coding Level of Care Code 76135 SUB INP/OBS CARE 2/35MIN Diagnoses Sepsis A41.9 Proctitis K62.89 Rectal bleed K62.5 Acute kidney injury superimposed on CKD N17.9; N18.9 Acute blood loss anemia D62 Hypotension I95.9
[2024-04-14 08:51] LABS: Folate (Folic Acid),Ser orPlas 19.54 ng/ml (>5.38)
[2024-04-14] MEDS: SODIUM CHLORIDE 0.45 % 1,000 ML IV SCH (10:13)
--- NOTE | 2024-04-14 10:13 | XRay Report ---
KUB HISTORY: stool impaction COMPARISON: KUB 12/11/2014. Abdomen and pelvis CT 04/12/2024. FINDINGS: The bowel gas pattern is unremarkable. There are no dilated loops of small bowel to suggest an obstruction. No renal calculi. No ureteral calculi. No pneumoperitoneum or pneumatosis. An aorto biiliac stent graft is again noted. There is a Montanez catheter within the pelvis. Moderate to large am ount well-formed stool again noted within the distal colon and rectum. IMPRESSION: 1. Moderate to large amount of well-formed stool again noted within the distal colon and rectum. This is similar to the prior CT examination. 2. No evidence for a bowel obstruction. ACT 112: Negative or not required by law. Electronically signed by: Rhett Rodriguez M.D. 04/14/2024 10:11 AM
--- NOTE | 2024-04-14 12:14 | Communication Note ---
Date of Service: April 14, 2024 Hospitalist note noted. KUB still with large stool burden. When hospitalist feels he has stabilized enough would give colonoscopy prep just to clean him out.
[2024-04-14 18:46] LABS: Calcium 8.5 mg/dl (8.6-10.3); Potassium 3.6 mmol/L (3.5-5.1)
[2024-04-14 18:51] LABS: BUN Creatinine Ratio 14.9 (10-20); Creatinine Clr Calc Pharmacy 26.8 ml/min; Est GFR (Non-African American) 34.5 ml/min
[2024-04-15 08:43] LABS: BUN Creatinine Ratio 13.3 (10-20); Calcium 8.1 mg/dl (8.6-10.3); Creatinine Clr Calc Pharmacy 28.5 ml/min; Est GFR (African American) 44.8 ml/min; Est GFR (Non-African American) 38.6 ml/min; Potassium 3.7 mmol/L (3.5-5.1)
--- NOTE | 2024-04-15 08:43 | Hospitalist Progress Note ---
Date of Service April 15, 2024 Assessment & Plan (1) Sepsis: Plan: 78 year old male who presents to the ER from [facility] due to hypotension and hematochezia. EMS notes possible loss of consciousness enroute to ER for about 5 minutes Concern for Sepsis from Stercoral colitis poa other sources could be . UA, CXR and CT A/P otherwise negative for infectious source. Rectal bleeding from constipation, associated with acute blood loss anemia iron studies, b12, folate stable, not in need of transfusion - Empiric antibiotics with IV Zosyn Day (2) Acute kidney injury superimposed on CKD: Plan: Acute kidney injury superimposed on CKD: - baseline Cr around 1.9 - 2 - on admission 3.89, but improving with IVF - Holding anti-hypertensives Plan COPD - no acute exacerbation suspected, reduce theophylline to once daily due to increased accumulation in sepsis, continue maintenance inhalers VTE Prophylaxis - Chemical contraindicated in setting of GI bleed Admission and Anticipated Discharge Date Admission Date: April 12, 2024 Subjective pt surrounded by guards states he is moving bowels, "some" increased cathartic meds Physical Exam Physical Exam: awake and alert, pleasant abd is doughy, soft and non tender Results & Data Results & Data Vital Signs (Past 12 Hours) Vital Signs Temp Pulse Pulse Resp BP BP Pulse Ox 04/15/24 07:40 98.6 F 86 18 124/80 95 04/15/24 06:14 97.7 F 78 18 139/82 95 04/14/24 22:43 98.2 F 89 18 149/78 H 94 04/14/24 22:24 90 04/14/24 21:00 Pulse Ox O2 Del Method O2 Del Method O2 Flow Rate 04/15/24 07:40 Room Air 04/15/24 06:14 Room Air 04/14/24 22:43 Room Air 04/14/24 22:24 04/14/24 21:00 94 Nasal Cannula 2 Laboratory Results review chemistry ordered KUB PG Care Time/CCT Total # of Minutes Spent Total Time Spent with Patient: Total time spent is greater than 50% in coordination of care (as documented) at patient's floor/unit and/or counseling patient: Coding Level of Care Code 43680 SUB INP/OBS CARE 2/35MIN Diagnoses Sepsis A41.9 Acute kidney injury superimposed on CKD N17.9; N18.9
[2024-04-15] MEDS: bisacodyL 10 MG SUPP PR STA (09:23)
[2024-04-15] MEDS: POLYETHYLENE (MIRALAX) 17 GM PACK PO SCH ×2 (09:24→16:56)
--- NOTE | 2024-04-15 15:38 | Gastroenterology Progress Note ---
Date of Service April 15, 2024 Assessment & Plan (1) Proctitis: Plan: I think he is having overflow diarrhea. Will give miralax gatorade like he is having a colonoscopy although I am not planning one at this time. Will see if that cleans him out. Admission and Anticipated Discharge Date Admission Date: April 12, 2024 Subjective Says he is moving his bowels "every hour". Receiving higher dose miralax now. Not passing blood. Feels well. Physical Exam Constitutional: + ill appearing and + thin Results & Data Vital Signs (Past 12 Hours) Vital Signs Temp Pulse Pulse Resp BP BP Pulse Ox 04/15/24 11:43 36.6 C 84 18 137/77 92 04/15/24 08:00 77 04/15/24 07:40 37.0 C 86 18 124/80 95 04/15/24 06:14 36.5 C 78 18 139/82 95 O2 Del Method 04/15/24 11:43 Room Air 04/15/24 08:00 04/15/24 07:40 Room Air 04/15/24 06:14 Room Air
--- NOTE | 2024-04-16 11:01 | XRay Report ---
KUB CLINICAL HISTORY: eval obstipation COMPARISON STUDY: CT of the abdomen and pelvis April 12, 2024. KUB April 14, 2024. FINDINGS: Montanez catheter is in place. Aortoiliac stent graft is noted. The bowel gas pattern is brooklynn l. The amount of stool within the distal colon and rectum has significantly decreased. IMPRESSION: 1. No evidence for a bowel obstruction. 2. Significant interval decrease in stool within the rectum and distal colon. ACT 112: Negative or not required by law. Electronically signed by: Maxx Mroris M.D. 04/16/2024 11:00 AM
--- NOTE | 2024-04-16 15:42 | Electrocardiogram Report ---
Test Reason : Blood Pressure : */* mmHG Vent. Rate : 101 BPM Atrial Rate : 101 BPM P-R Int : 160 ms QRS Dur : 84 ms QT Int : 344 ms P-R-T Axes : 86 91 75 degrees QTcB Int : 446 ms Sinus tachycardia with Premature atrial complexes Right atrial enlargement Rightward axis Pulmonary disease pattern Abnormal ECG When compared with ECG of 22-Mar-2024 16:57, Nonspecific T wave abnormality no longer evident in Inferior leads Confirmed by Vidhi Borden ([id number]) on 04/13/2024 6:47:16 PM Referred By: [facility] Confirmed By: Vidhi Borden
--- NOTE | 2024-04-16 16:56 | Gastroenterology Progress Note ---
Date of Service April 16, 2024 Assessment & Plan (1) Proctitis: Plan: Would keep him on daily miralax indefinitely. KUB from this morning showed marked improvement in stool burden. Okay with me to go back to the [facility] Admission and Anticipated Discharge Date Admission Date: April 12, 2024 Subjective Feels like he got great results from miralax/gatorade. Did not pass any blood with the laxative Physical Exam Physical Exam: Looks well, eating dinner Results & Data Vital Signs (Past 12 Hours) Vital Signs Temp Pulse Resp BP Pulse Ox O2 Del Method 04/16/24 16:02 37.2 C 79 16 137/81 95 Room Air 04/16/24 10:28 36.5 C 78 20 120/76 95 Room Air 04/16/24 08:45 36.8 C 80 16 147/77 H 95 Room Air
--- NOTE | 2024-04-16 19:25 | Hospitalist Progress Note ---
Date of Service April 16, 2024 Assessment & Plan (1) Sepsis: Plan: 78 year old male who presents to the ER from [facility] due to hypotension and hematochezia. EMS notes possible loss of consciousness enroute to ER for about 5 minutes Concern for Sepsis from Stercoral colitis poa other sources could be . UA, CXR and CT A/P otherwise not suggestive for infectious source. Rectal bleeding from constipation, associated with acute blood loss anemia iron studies, b12, folate stable, not in need of transfusion - Empiric antibiotics with IV Zosyn Day (2) Acute kidney injury superimposed on CKD: Plan: Acute kidney injury superimposed on CKD: - baseline Cr around 1.9 - 2 - on admission 3.89, but improving with IVF - Holding anti-hypertensives Plan COPD - no acute exacerbation suspected, reduce theophylline to once daily due to increased accumulation in sepsis, continue maintenance inhalers VTE Prophylaxis - Chemical contraindicated in setting of GI bleed Admission and Anticipated Discharge Date Admission Date: April 12, 2024 Subjective voluminous bowel movements, KUB has cleared, pt now advancing diet no distress Physical Exam Physical Exam: PT is awake and alert no abdominal pain Results & Data Results & Data Vital Signs (Past 12 Hours) Vital Signs Temp Pulse Pulse Resp BP Pulse Ox O2 Del Method 04/16/24 16:02 99.0 F 79 16 137/81 95 Room Air 04/16/24 13:00 85 04/16/24 10:28 97.7 F 78 20 120/76 95 Room Air 04/16/24 08:45 98.2 F 80 16 147/77 H 95 Room Air PG Care Time/CCT Total # of Minutes Spent Total Time Spent with Patient: Total time spent is greater than 50% in coordination of care (as documented) at patient's floor/unit and/or counseling patient: Coding Level of Care Code 84501 SUB INP/OBS CARE 2/35MIN Diagnoses Sepsis A41.9 Acute kidney injury superimposed on CKD N17.9; N18.9
[2024-04-16 20:24] VITALS: RESP 18
[2024-04-17 04:12] VITALS: TEMP 97.9
[2024-04-17 07:00] VITALS: O2SAT 94
[2024-04-17 10:00] VITALS: BP 128/72; PULSE 81
--- NOTE | 2024-04-17 17:21 | Discharge Summary ---
Discharge Summary Date of Service April 17, 2024 Principal Dx & Hospital Course #1 = Principal Diagnosis (1) Sepsis: 78 year old male who presents to the ER from [facility] due to hypotension and hematochezia. EMS notes possible loss of consciousness enroute to ER for about 5 minutes Concern for Sepsis from Stercoral colitis poa other sources could be . UA, CXR and CT A/P otherwise not suggestive for infectious source. Rectal bleeding from constipation, associated with acute blood loss anemia iron studies, b12, folate stable, not in need of transfusion - Empiric antibiotics completed 5 days Zosyn Day (2) Acute kidney injury superimposed on CKD: Acute kidney injury superimposed on CKD: - resolved and return to baseline Cr Plan COPD - no acute exacerbation suspected, reduce theophylline to once daily due to increased accumulation in sepsis, continue maintenance inhalers Notes For Next Care Provider assure good bowel movements Admission HPI Per Admitting Provider Fan Prather is an 78 year old male who presents to the ER from [facility] due to hypotension and hematochezia. The patient reports diarrhea started yesterday with blood. He felt lightheaded and dizzy but denies any syncopal event. EMS notes possible loss of consciousness yesterday for about 5 minutes although the patient denies this. Per EMS he was hypotensive on his way to the ER with lowest being 51/26 and was given 250 mL bolus of normal saline given prior to arrival to the ER. Per long-term notes he was sent to the ER for hematochezia that started yesterday and hypotension. The patient currently denies any fever, chills, dizziness, lightheadedness, shortness of breath, nausea, vomiting, chest pain, abdominal pain or acute urinary symptoms. He does note chronic problems with passing urine but does not take any medications for this. He was notably passing alba bright red blood while in the ER. Initially ordered 1 unit of blood although this was never given. Discharge Exam pt stable and awake, no distress Discharge Plan Discharge Items [facility] Reason For Visit: SEPSIS, ACUTE BLOOD LOSS ANEMIA Discharge Diagnosis: sepsis from stercoral colitis acute kidney injury resolved Activity: Resume your previous activity Non-emergency contact: Primary Care Provider Call non-emergency contact if: your symptoms worsen Follow-up/Referrals: [facility] [Primary Care Provider] - Diet: Regular Addtl Attending Provider Instructions: please continue miralax daily please try to have fiber in your diet complete antibiotics thru 04/19 Pending Studies at Discharge: No Stand-Alone Forms: My [facility] Skilled Items Patient informed of condition?: Yes Discharge Level of Care: Other Communicable Disease: No Discharge Prognosis: Stable Lines: None Urinary Catheter: No Medications and DC Order Prescriptions: New amoxicillin-pot clavulanate 875-125 mg tablet 1 tab PO BID Qty: 6 0RF polyethylene glycol 3350 [Miralax] 17 gram/dose powder 17 g PO DAILY Qty: 238 5RF Continued lisinopril 20 mg Tablet 20 mg PO DAILY amlodipine 2.5 mg Tablet 2.5 mg PO DAILY pantoprazole 40 mg Tablet,Delayed Release (Dr/Ec) 40 mg PO DAILY montelukast 10 mg Tablet 10 mg PO DAILY lovastatin 20 mg Tablet 20 mg PO HS albuterol sulfate 90 mcg/actuation Hfa Aerosol Inhaler 1 puff INHALATION QID PRN (Reason: Shortness Of Breath) docusate sodium 250 mg Capsule 250 mg PO DAILY theophylline 300 mg Capsule,Extended Release 24hr 300 mg PO TID Rx Instructions: Max dose 900 mg day vitamin A-vitamin C-vit E-min Tablet 1 tab PO DAILY Eliquis 5 mg Tablet 5 mg PO BID Trelegy Ellipta 100-62.5-25 mcg Blister With Device 1 inh INHALATION DAILY montelukast 10 mg Tablet 10 mg PO DAILY Discharge Orders: Discharge Order (Routine); Ordered 04/17/24 Ordered By: Joey Finnegan Admission Data Admit Date/Time: 04/12/24 19:41 Attending Provider: Joey Finnegan Admit Provider: Thee Carlson Primary Care Provider: Chester MCCOY Other Providers: Thee Carlson; Juancarlos Hager Jr Other Interventions: Discharge Summary Assessment (RN) Last Done: 04/17/24 09:57 Hospital Stay Data Consultations 04/12/24 18:24 ED Decision to Admit Stat 04/13/24 08:54 Consult Gastroenterology Routine Diagnostic Imagining Performed 04/12/24 16:59 CT abd pelvis wo con Stat Pending Results Patient Have Any Pending Studies at Discharge: No Discharge Instructions Given to Patient (Per Discharging Provider) please continue miralax daily please try to have fiber in your diet complete antibiotics thru 04/19 Total Time Total Time Spent Total Time Spent (In Minutes): It required greater than 30 minutes to prepare this patient for discharge. Coding Level of Care Code 01429 INP/OBS DISCH >30 MIN Diagnoses Sepsis A41.9 Acute kidney injury superimposed on CKD N17.9; N18.9
== END 2024-04-17 11:37 | DRG 872 ==
LOC: ED 16:30 → SUATTDRO 19:41 → 2S 19:41 → 2E 04-16 08:15